=== PATIENT | female | born 1975 | race Caucasian/White ===

== ENCOUNTER → 2018-03-15 15:06 | Outpatient (CLI) | payer OTHER, SELFPAY ==
[2018-03-15 15:58] LABS: Hemoglobin 10.8 g/dl (12.0-15.0); Mean Corp Hgb Conc 33.8 g/gl (32-36); Mean Corpuscular Hgb 31.3 pg (27.0-32.0); Mean Corpuscular Volume 92.8 fL (81-99); Mean Platelet Vol. 10.3 fl (6.2-12.0); Platelet Count 268 K/mm3 (150-450); RBC Distribution Width CV 12.6 % (11.6-14.6); RBC Distribution Width SD 41.4 fl (35.1-43.9); Red Blood Count 3.45 M/mm3 (4.2-5.4); White Blood Count 8.7 K/mm3 (4.4-11.0)
[2018-03-15 15:59] LABS: Scan Indicated on CBC? Y/N NO
[2018-03-15 19:33] LABS: Thyroid Stim Hormone (TSH) 0.82 uIU/mL (0.358-3.74)
[2018-03-15 21:02] LABS: hCG Titer Quant., Serum < 1 mIU/mL (<9 non-preg)
== END ==
PROVIDERS: Visit Provider Obstetrics & Gynecology
DX: N92.0 Excessive and frequent menstruation with regular cycle (principal)
CPT/HCPCS: 84443; 84702; 85027

== ENCOUNTER 2018-03-17 06:00 | Day surgery (SDC) | payer OTHER, SELFPAY ==
[2018-03-17] VITALS (8 sets, daily range): BP systolic 97–122; BP diastolic 59–86; PULSE 67–91; RESP 16–18; TEMP 36.6–36.9; O2SAT 95–100; BMI 21.3
[2018-03-17 07:16] LABS: Pregnancy, Serum, hCG Quali. NEGATIVE Negative (0-9 Nonpreg)
--- NOTE | 2018-03-17 07:30 | EMB_PTH ---
PATIENT: RICHARD LAM [place] [facility] [id number] AGE/SX: 42/F ROOM: RE03/17/[address]: Dr. Jen Mcdermott MD : 1975 BED: DIS: 03/17/2018 SPEC #: [id number] RECD: 03/17/18 12:42 STATUS: VONNIE KENNEDY #: [id number] JULIA: 03/17/18 07:[address]: Jen Mcdermott DEPT: SURGICAL PATHOLOGY RECD BY: Vaughn Schuster ENTERED: 03/17/18 13:14 SP TYPE: ENDOM BX/C PAULO DR: Dr. Latisha Rhodes MD Tissues: Endometrium, NOS Procedures: Surgery Specimen Level IV HEADER OPERATION: Hysteroscopy, dilation and curettage PRE-OP DIAGNOSIS: Menorrhagia TISSUE SUBMITTED: Endometrial curettings MICROSCOPIC DIAGNOSIS Endometrial curettings: Weakly proliferative endometrium. Fragments of myometrium. Fragments of benign endocervical mucosa and numerous blood clots. LA:sam 03/20/18 MICROSCOPIC DESCRIPTION Slides are reviewed. GROSS DESCRIPTION Received in fixative is one container labeled with the patient's name and designated endometrial curettings. The specimen consists of multiple fragments of hemorrhagic soft tissue mixed with blood clot that in aggregate measure 5 x 3 x 0.6 cm. The entire specimen is submitted in four cassettes. / LA:sam 03/17/18 TC:5 CPT: 33026
--- NOTE | 2018-03-17 07:52 | PCM.DC.D&C ---
Discharge Diet: No Restrictions Discharge Activity: Return to Normal Activity, May Shower, May Take a Tub Bath - in 2 weeks. Return to work on:: 03/24/18 May shower in (days): 0 - TODAY May resume sexual activity in: 2 weeks Weight Bearing Status: Full weight bearing Lifting Restrictions: 5 Call your doctor if you observe: Fever of 101 or Higher, Inability to urinate, Inability to have a bowel movement, Using more than one pad per hour Allergies/Adverse Reactions: Allergies No Known Allergies Allergy (Verified 03/16/18 15:38) Medications to take at Discharge Drospir/Eth Estra/Levomefol Ca [Beyaz 28 Tablet] 1 each PO DAILY 07/15/14 Norgestimate-Ethinyl Estradiol [Ortho-Cyclen] 1 each PO DAILY 30 Days tablet 03/17/18 Oxycodone HCl/Acetaminophen [Percocet 5/325] 1 - 2 tablet PO Q4H PRN PRN 7 Days #20 tablet 03/17/18 The following prescriptions were given: Oxycodone HCl/Acetaminophen [Percocet 5/325] 1 - 2 tablet PO Q4H PRN PRN 7 Days #20 tablet PRN Reason: Pain Norgestimate-Ethinyl Estradiol [Ortho-Cyclen] 1 each PO DAILY 30 Days tablet Primary Care Physician: Latisha Rhodes MD [Primary Care Provider] - Test Results: Test results from this visit will be discussed in further detail at your follow-up appointment, if applicable. Please Follow Up With: Jen Mcdermott MD When: follow up in office March 21. Call for appointment time
--- NOTE | 2018-03-17 08:08 | PCM.OPRPT ---
Problem List (1) Menorrhagia Status: Acute (2) Metrorrhagia Status: Acute (3) Endometrial mass Status: Acute (4) Anemia Status: Acute Report of Operation Date of Procedure: 03/17/18 Pre-Operative Diagnosis: Menorrhagia, metrorrhagia, endometrial mass, anemia Post-Operative Diagnosis: Same plus suspected endometrial fibroid Surgery/Procedure Performed:: D and C with diagnostic hysteroscopy Description of Surgical Findings:: Uterus was noted to be in an anterior position and was sounded to approximately. Cervical eyes was somewhat dilated. Hysteroscope revealed what appeared to be a posterior also appears to be contiguous fibroid on ultrasound yesterday. Uterus is fully mobile and well supported. There is no prolapse. Right. Bilateral adnexa are benign macaroni press operator: Marina Hartman Type of Anesthesia:: Local, MAC Anesthesiologist: Ha Ruano Special Medications: 1% lidocaine, 10 cc to the cervix. Specimen's removed: Endometrium Drains: None Estimated Blood Loss (mL): Minimal Fluids Replaced: Lactated Ringer Description of Procedure: Patient presented to the surgical suite in an n.p.o. status since midnight the night before surgery. Patient was placed on the operating table and underwent a MAC anesthetic. Once MAC anesthetic was noted to be adequate she was placed in the dorsal lithotomy position via the Reg stirrups she was then prepped and draped in the normal sterile fashion. Initial room timeout occurred followed by a second timeout just prior to starting the procedure. A weighted speculum was taped placed to the vagina the bladder had been emptied by nursing staff during the preparation process. Anterior lip of the cervix was grasped and elevated and uterus was sounded to approximately 10-11 cm in an anterior position. The 1% lidocaine was then placed to the 4 quadrants of the cervix which the patient tolerated well. The cervical eyes was already dilated and a 3 mm hysteroscope was placed into the endometrial cavity with a large amount of clotted tissue noted. Forceps were then used to remove this clotted tissue along with sharp curettage of the entire endometrial cavity. The entire posterior surface of the uterus appears to be involved with the fibroid. Hysteroscopic investigation could not delineate precise stock and it is suspected that this endometrial fibroid is either connected to or is a part of the 6 cm fibroid noted on the exterior of the uterus in the posterior position. After removal of all available tissue and that being sent away for pathological evaluation, all instruments were removed from the vagina. Hemostasis was noted. The instrument and sponge counts are correct ?2. The patient is awake and in stable condition. Patient will be taken to recovery room with discharge to the home setting. Grafts/Implants Used: None - Complications None - Admit VTE Documentation VTE Present on Admission: No VTE Mechan Device Prophylaxis: SCD's VTE Pharm Prophylaxis ordered?: No Reason prophylaxis not ordered:: Procedure Not Indicated
[2018-03-17] MEDS: MedroxyPROGESTERone 150 MG/ML Syringe IM (08:41)
== END 2018-03-17 09:54 | disposition home or self-care (01) ==
LOC: SDC 06:00 → AC 06:01
PROVIDERS: Anesthesiology; Family Provider Family Medicine; PCP Family Medicine; Visit Provider Obstetrics & Gynecology
PROC: 0UDB8ZZ Extraction of Endometrium, Via Natural or Artificial Opening Endoscopic (ICD-10-PCS; CPT 58558; principal; 2018-03-17 07:20)
DX: N92.0 Excessive and frequent menstruation with regular cycle (principal); N92.1 Excessive and frequent menstruation with irregular cycle; N85.8 Other specified noninflammatory disorders of uterus; D64.9 Anemia, unspecified; K21.9 Gastro-esophageal reflux disease without esophagitis; Z85.828 Personal history of other malignant neoplasm of skin
CPT/HCPCS: 58558; 84703; 86850; 86900; 88305; J7120; J2405

== ENCOUNTER 2018-03-25 14:37 | Emergency (ER) | payer OTHER, SELFPAY ==
[2018-03-25 14:38] VITALS: BP 141/81; PULSE 97; RESP 16; TEMP 37; O2SAT 97; BMI 21.7
--- NOTE | 2018-03-25 15:06 | ED.VISSUMM ---
- ER Visit Summary Date of Service: 03/25/18 Chief Complaint: [] Bilateral lower extremity leg cramps left greater than right for a few days History of Present Illness: The patient is a 43 F [] recently had heavy vaginal bleeding, found to have fibroid, underwent D&C on the , she has had intermittent lower extremity leg cramps left greater than right for a few days. 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 She has had no fever no cough her vaginal bleeding has resolved she has no abdominal pain she is scheduled for hysterectomy later in the month she seen by Dr. Jen Mcdermott Patient has no history of trauma to her lower extremities or anybody area, and again no history of vascular disease DVT swelling or trauma she points to the most fleshy part of the left calf as the area where the cramps occur and they occasionally occur in similar location right calf Physical Examination: [] Head neck chest unremarkable abdomen soft , her lower extremities are unremarkable she has normal muscle strength normal movement of all major joints, there is no edema normal pulsation normal cap refill skin color is normal there is no pain to palpation of the calves or the medial thighs and no signs of DVT infection trauma Test Results: [] Emergency Department Course and Treatment: [] Patient expresses concern for DVT she has no history of risk factor she is no immobility did have the procedure as above the duplex techs are no longer available at the hospital, she understands the above we are obtaining screening labs to check for any electrolyte abnormalities that might be contributing to the above, and she understands and agrees if the screening labs are unremarkable she will undergo duplex scanning tomorrow through the outpatient mechanism Treatment Plan: [] The labs are all generally unremarkable see those reports she will obtain a duplex scanning tomorrow as discussed above Disposition: [] Home stable Impression: [] Bilateral lower extremity cramps intermittent, anemia, history of hysterectomy with vaginal bleeding This note was generated with [employer] software. It may contain incorrect words, spelling, and punctuation that were not noted in review of the chart prior to signing ED Disposition - Plan for ED Patient: Chief Complaint: Lower Extremity Injury Referrals: Latisha Rhodes MD [Primary Care Provider] -
[2018-03-25 15:29] LABS: Absolute Lymphocyte Count 2.46 X10^3/ul (0.83-4.51); Absolute Neutrophil Count 6.3 X10^3/uL (2.0-7.7); Basophil# 0.03 X10^3/uL; Basophil% 0.3 % (0-1); Eosinophil# 0.19 X10^3/uL; Hematocrit 30.9 % (37-47); Hemoglobin 10.1 g/dl (12.0-15.0); Lymphocyte # 2.46 X10^3/ul (4.0); Lymphocyte % 25.5 % (19-41); Mean Corp Hgb Conc 32.7 g/gl (32-36); Mean Corpuscular Hgb 29.8 pg (27.0-32.0); Mean Corpuscular Volume 91.2 fL (81-99); Monocyte# 0.66 X10^3/uL; Monocyte% 6.9 % (0-10); Neutrophil # 6.28 X10^3/uL (2.7-7.7); Neutrophil % 65.2 % (47-70); Platelet Count 336 K/mm3 (150-450); RBC Distribution Width CV 13.2 % (11.6-14.6); RBC Distribution Width SD 43.7 fl (35.1-43.9); Red Blood Count 3.39 M/mm3 (4.2-5.4); White Blood Count 9.6 K/mm3 (4.4-11.0)
[2018-03-25 15:39] LABS: Anion Gap 6 (5-15); BUN 9 mg/dL (7-18); BUN/Creat Ratio 10.3 RATIO (10-20); Calcium,Total 8.5 mg/dL (8.5-10.1); Chloride 109 mmol/L (98-107); Creatinine, Serum 0.87 mg/dL (0.55-1.02); EST Glomerular Filtration Rate 76 mL/min (>60); Est Glom Filt Rate - Afr Amer 92 mL/min (>60); Estimated Creatinine Clearance 82.75 ml/min; Glucose 95 mg/dL (74-106); Magnesium 2.1 mg/dL (1.6-2.6); POSITIVE COUNT NO; POSITIVE DIFFERENTIAL NO; POSITIVE MORPHOLOGY NO; Potassium 3.8 mmol/L (3.5-5.1); Sodium Level 139 mmol/L (136-145)
--- NOTE | 2018-03-25 15:45 | ED.DEP ---
ED Disposition - Plan for ED Patient: Chief Complaint: Lower Extremity Injury Instructions: ED Muscle Pain Leg Cramps Prescriptions: Hydrocodone Bitart/Apap 5-325 [[employer] 5MG-325MG] 1 tab PO Q4H PRN PRN 2 Days #7 tab PRN Reason: Pain Referrals: Latisha Rhodes MD [Primary Care Provider] -
--- NOTE | 2018-03-26 10:45 | VDLE_ITS ---
Reason For Study: PAIN RIGHT LEFT GSV is normal. GSV is normal. CFV is compressible, spontaneous, phasic, CFV is compressible, spontaneous, phasic, competent and demonstrates normal competent, and demonstrates normal augmentation. augmentation. FV is compressible, spontaneous, phasic, FV is compressible, spontaneous, phasic, competent and demonstrates normal competent and demonstrates normal augmentation. augmentation. POP V is compressible, spontaneous, phasic, POP V is compressible, spontaneous, phasic, competent and demonstrates normal competent and demonstrates normal augmentation. augmentation. T/P Trunk is compressible. T/P Trunk is compressible. PTV is compressible. LT PerV is compressible. RT PerV is compressible. Left PTV is dilated and noncompressible at Procedure the ankle. The remainder of the PTV is Exam performed in department. compressible . A preliminary report was called and/or faxed to Dr Beltre was paged and spoke to pt. Interpretation Summary Acute deep vein thrombosis is noted in the left posterior tibial vein at the level of the ankle. The remainder of the left lower extremity deep venous system is patent and compressible. Deep veins of the right lower extremity are patent and compressible segmentally. There is no evidence of right lower extremity deep vein thrombosis. Valvular competence appears intact within the proximal deep venous systems bilaterally. The greater saphenous veins appear bilaterally patent and compressible segmentally. Ordering Physician: Manuela Kahn Referring Physician: DANTE YORK Performed By: Emmanuelle Marino, OMAR, RVT
== END 2018-03-25 16:10 | disposition home or self-care (01) ==
PROVIDERS: Emergency Provider Emergency Medicine; Family Provider Family Medicine; PCP Family Medicine
DX: R25.2 Cramp and spasm (principal); D64.9 Anemia, unspecified; N93.9 Abnormal uterine and vaginal bleeding, unspecified; Z90.710 Acquired absence of both cervix and uterus
CPT/HCPCS: 36415; 80048; 83735; 85025; 99282

== ENCOUNTER → 2018-03-26 08:00 | Outpatient (CLI) | payer OTHER, SELFPAY | PROVIDERS: Family Provider Family Medicine; PCP Family Medicine; Visit Provider Emergency Medicine | DX: I82.442 Acute embolism and thrombosis of left tibial vein (principal) | CPT/HCPCS: 93970 ==

== ENCOUNTER → 2018-03-27 14:27 | Outpatient (CLI) | payer OTHER, SELFPAY ==
[2018-03-27 15:49] LABS: Homocysteine 5.9 umol/L (3.2-10.7)
[2018-04-05 12:05] LABS: Antithrombin 3 Function 114 % (75-135)
== END ==
PROVIDERS: Family Provider Family Medicine; PCP Family Medicine; Visit Provider Obstetrics & Gynecology
DX: I82.402 Acute embolism and thrombosis of unspecified deep veins of left lower extremity (principal)
CPT/HCPCS: 81240; 81241; 81291; 83090; 85300

== ENCOUNTER → 2018-04-03 16:34 | Outpatient (CLI) | payer OTHER, SELFPAY ==
[2018-04-03 17:37] LABS: Absolute Lymphocyte Count 3.51 X10^3/ul (0.83-4.51); Absolute Neutrophil Count 4.1 X10^3/uL (2.0-7.7); Basophil# 0.02 X10^3/uL; Basophil% 0.2 % (0-1); Eosinophil# 0.16 X10^3/uL; Eosinophils% 1.9 % (0-5); Hematocrit 32.6 % (37-47); Hemoglobin 10.6 g/dl (12.0-15.0); Lymphocyte # 3.51 X10^3/ul (4.0); Lymphocyte % 41.9 % (19-41); Mean Corp Hgb Conc 32.5 g/gl (32-36); Mean Corpuscular Hgb 29.8 pg (27.0-32.0); Mean Corpuscular Volume 91.6 fL (81-99); Mean Platelet Vol. 9.1 fl (6.2-12.0); Monocyte# 0.58 X10^3/uL; Monocyte% 6.9 % (0-10); Neutrophil # 4.09 X10^3/uL (2.7-7.7); Platelet Count 410 K/mm3 (150-450); RBC Distribution Width CV 13.3 % (11.6-14.6); RBC Distribution Width SD 44.4 fl (35.1-43.9); Red Blood Count 3.56 M/mm3 (4.2-5.4); White Blood Count 8.4 K/mm3 (4.4-11.0)
[2018-04-03 17:44] LABS: POSITIVE COUNT NO; POSITIVE DIFFERENTIAL NO; POSITIVE MORPHOLOGY NO
== END ==
PROVIDERS: Family Provider Family Medicine; PCP Family Medicine; Visit Provider Family Medicine
DX: I82.409 Acute embolism and thrombosis of unspecified deep veins of unspecified lower extremity (principal)
CPT/HCPCS: 36415; 85025

== ENCOUNTER → 2018-04-13 13:08 | Outpatient (CLI) | payer OTHER, SELFPAY ==
[2018-04-13 16:17] LABS: Hematocrit 33.5 % (37-47); Hemoglobin 10.8 g/dl (12.0-15.0); Mean Corp Hgb Conc 32.2 g/gl (32-36); Mean Corpuscular Hgb 29.3 pg (27.0-32.0); Mean Platelet Vol. 9.8 fl (6.2-12.0); Platelet Count 356 K/mm3 (150-450); RBC Distribution Width CV 12.7 % (11.6-14.6); RBC Distribution Width SD 41.3 fl (35.1-43.9); Red Blood Count 3.68 M/mm3 (4.2-5.4); White Blood Count 7.8 K/mm3 (4.4-11.0)
[2018-04-13 16:21] LABS: Scan Indicated on CBC? Y/N NO
== END ==
PROVIDERS: Visit Provider Obstetrics & Gynecology
DX: D64.9 Anemia, unspecified (principal)
CPT/HCPCS: 36415; 85027

== ENCOUNTER → 2018-04-27 10:52 | Outpatient (CLI) | payer OTHER, SELFPAY | PROVIDERS: Family Provider Family Medicine; PCP Family Medicine; Visit Provider Family Medicine | DX: I82.402 Acute embolism and thrombosis of unspecified deep veins of left lower extremity (principal) | CPT/HCPCS: 93971 ==

== ENCOUNTER 2018-05-29 11:19 | Inpatient (IN) | payer OTHER, SELFPAY ==
[2018-05-29] VITALS (16 sets, daily range): BP systolic 90–114; BP diastolic 47–70; PULSE 80–140; RESP 12–24; TEMP 36.1–37.5; O2SAT 97–100; BMI 22.7; BMI 24.2
--- NOTE | 2018-05-29 11:39 | EKG12_ITS ---
Test Reason : DIZZY Blood Pressure : / mmHG Vent. Rate : 070 BPM Atrial Rate : 070 BPM P-R Int : 140 ms QRS Dur : 078 ms QT Int : 396 ms P-R-T Axes : 065 076 035 degrees QTc Int : 427 ms Normal sinus rhythm with sinus arrhythmia Nonspecific T wave abnormality Confirmed by SHAHID ORTEGA, DEBI ([id number]), video tape editor ANNA BOX ([id number]) on 06/01/2018 1:46:13 PM Referred By: Yady Beltre Confirmed By:DEBI KEY MD
[2018-05-29] MEDS: 0.9% Normal Saline 1,000 ML 1000 ML IV (11:43)
[2018-05-29 12:01] LABS: Absolute Lymphocyte Count 2.71 X10^3/ul (0.83-4.51); Absolute Neutrophil Count 4.1 X10^3/uL (2.0-7.7); Basophil# 0.02 X10^3/uL; Basophil% 0.3 % (0-1); Eosinophil# 0.02 X10^3/uL; Eosinophils% 0.3 % (0-5); Hematocrit 24.4 % (37-47); Lymphocyte # 2.71 X10^3/ul (4.0); Lymphocyte % 36.9 % (19-41); Mean Corp Hgb Conc 32.8 g/gl (32-36); Mean Corpuscular Hgb 29.2 pg (27.0-32.0); Mean Corpuscular Volume 89.1 fL (81-99); Mean Platelet Vol. 9.2 fl (6.2-12.0); Monocyte# 0.52 X10^3/uL; Monocyte% 7.1 % (0-10); Neutrophil # 4.08 X10^3/uL (2.7-7.7); Neutrophil % 55.4 % (47-70); Platelet Count 263 K/mm3 (150-450); RBC Distribution Width CV 14.4 % (11.6-14.6); RBC Distribution Width SD 47.1 fl (35.1-43.9); Red Blood Count 2.74 M/mm3 (4.2-5.4); White Blood Count 7.4 K/mm3 (4.4-11.0)
[2018-05-29 12:03] LABS: POSITIVE COUNT NO; POSITIVE DIFFERENTIAL NO; POSITIVE MORPHOLOGY NO
[2018-05-29 12:08] LABS: International Normalized Ratio 1.2; Prothrombin Time (Protime)PT. 15.2 SECONDS (11.7-14.9)
[2018-05-29 12:09] LABS: Partial Thromboplast Time 27.2 Seconds (24.1-36.2)
[2018-05-29 12:15] LABS: Anion Gap 8 (5-15); BUN 10 mg/dL (7-18); BUN/Creat Ratio 12.1 RATIO (10-20); Chloride 105 mmol/L (98-107); Creatinine, Serum 0.82 mg/dL (0.55-1.02); EST Glomerular Filtration Rate 81 mL/min (>60); Est Glom Filt Rate - Afr Amer 98 mL/min (>60); Glucose 138 mg/dL (74-106); Potassium 3.6 mmol/L (3.5-5.1); Sodium Level 136 mmol/L (136-145)
[2018-05-29] MEDS: 0.9% Normal Saline 1,000 ML 150 ML IV (12:54)
--- NOTE | 2018-05-29 14:05 | ED.VISSUMM ---
- ER Visit Summary Date of Service: 05/29/18 Chief Complaint: Vaginal bleeding History of Present Illness: The patient is a 43 F with a history of menorrhagia and endometrial mass/large fibroid. Patient had a D&C in late February. She had heavy bleeding for 12 hours in early April. She then started heavy bleeding intermittently again over the past 4 days. She reports episodes of lightheadedness. Patient had been scheduled for a hysterectomy after she had a D&C, however developed a DVT in her right lower leg and was started on Xarelto. Hysterectomy is currently on hold secondary to this. Physical Examination: Blood pressure is 110/70, temperature 97, heart rate 140, respiratory rate 24, pulse ox 100% on room air. Patient is lying supine in the bed. She appears pale. Heart is regular rate and rhythm with a rate of 98 at the time of my exam. Lung sounds are clear. Abdomen is soft with no focal tenderness. Test Results: EKG is sinus at 70 with no acute ischemia. CBC was a hemoglobin of 8. In late March her hemoglobin was 11.3. Chemistry studies unremarkable. INR is 1.2. Emergency Department Course and Treatment: Patient is given IV fluids. Heart rate is in the 80s when she is lying supine. We have not gotten her up. Systolic blood pressure is holding between 105 and 110. I spoke with Dr. Erika Yoo, on-call for Dr. Mcdermott. Patient will be admitted and the 2 units of packed RBCs that are currently held will be transfused. Dr. Erika Yoo will see the patient on the floor. Treatment Plan: [] Disposition: Admit Impression: 1. Menorrhagia 2. Anemia This note was generated with [employer] dictation software. It may contain incorrect words, spelling, and punctuation that were not noted in review of the chart prior to signing ED Disposition - Plan for ED Patient: Chief Complaint: Vag Bleeding Referrals: Latisha Rhodes MD [Primary Care Provider] -
--- NOTE | 2018-05-29 20:12 | HP.PCM_ITS ---
Problem List (1) Menometrorrhagia Status: Chronic (2) Anemia Status: Acute Qualifiers: Other causes of anemia: acute posthemorrhagic Comment: acute on chronic History of Present Illness Date of Admission: 05/29/18 Chief Complaint: vaginal bleeding The patient is a 43 year old F 2 para 2 LMP unknown who presented to the ER with heavy vaginal bleeding. Patient has known history of uterine fibroids with associated iron deficiency anemia related to menometrorrhagia since February 2018. She is followed by Dr. Jen Mcdermott locally, but was awaiting a second opinion at [facility] to determine optimal mode of hysterectomy. The patient had a hysteroscopy, dilation and curettage on 03/17/18 with benign endometrial pathology. She stopped her combined hormonal contraceptive pill on the day of surgery and received a single dose of IM DepoProvera that same day. She was subsequently diagnosed with a lower extremity DVT and started on Xarelto. She is followed by Dr. Landis, Hematology. She has some short-term improvement of bleeding and started iron infusions per Hematology. Bleeding recurred the last week of April. Bleeding had been light and intermittent until this past weekend. On Tuesday, 4 days ago, she had 12 hours of heavy bleeding, again followed by similar symptoms on Tuesday and again on Tuesday. Bleeding today was persistent thus she did not take today's dose of Xarelto and went to the ER. Past Medical History Past Medical History (Chronic Problems): Chronic Problems (Last Updated 05/29/18 @ 20:14 by Yady Beltre MD) DVT, lower extremity, distal, acute (Chronic) Iron deficiency anemia (Chronic) Menometrorrhagia (Chronic) Medical History: Medical History (Last Updated 05/29/18 @ 20:14 by Yady Beltre MD) Iron deficiency anemia due to chronic blood loss D50.0 D AND C WITH DIAGNOSTIC HYSTERSCOPY DVT (deep venous thrombosis) I82.409 Allergies No Known Allergies Allergy (Verified 05/29/18 11:21) Home Medications: Ambulatory Orders Medication Instructions Recorded Multivitamin [Multiple Vitamins] 1 each PO DAILY 04/26/18 MedroxyPROGESTERone [Depo-Provera] 150 mg IM .[id number] 05/29/18 Enoxaparin [Lovenox] 70 mg SC Q12@0600,1800 #14 syringe 05/30/18 Medroxyprogesterone Acetate 10 mg PO TID #60 tablet 05/30/18 [Provera] Warfarin [Coumadin] 5 mg PO DAILY@1700 #30 tablet 05/30/18 Surgical History: Surgical History (Last Reviewed 04/19/18 @ 12:01 by Darlene Murphy) History of hernia repair Z98.890, Z87.19 [employer] History: uterine fibroids Lives: Spouse/ Significant Other Smoking Status: Never smoker Tobacco Use: Non-smoker Alcohol: None Drugs: None - *Family History Maternal Family History: Family History (Last Updated 04/19/18 @ 11:59 by Darlene Murphy) Other No pertinent family history History Items: - - Maternal family history of heavy mentrual cycles requiring PRBC administration and eventual hysterectomy. Paternal Family History: Family History (Last Updated 04/19/18 @ 11:59 by Darlene Murphy) Other No pertinent family history History Items: No pertinent history Review of Systems Constitutional: Reports: Fatigue. Denies: Anorexia, Chills, Fever, Weakness Eyes: Denies: Blurred vision Cardiovascular: Reports: Light Headedness. Denies: Chest Pain, Chest Pressure, Edema, Syncope Respiratory: Denies: Shortness of Breath Gastrointestinal: Reports: - - Lower abdominal cramping. Denies: Nausea, Vomiting Gynecological: Reports: Excessively long or heavy periods Hematologic/ Lymphatic: Reports: Anemia, Hx of blood clot VTE Information - Inpt Only VTE Present on Admission: No VTE Mechan Device Prophylaxis: Knee High RUSSELL Hose VTE Pharm Prophylaxis ordered?: No Subjective: See HPI Objective: AVSS - Physical Exam General: Alert, Oriented x3, Cooperative, No apparent distress HEENT: Atraumatic, Normocephalic Lungs: Clear to auscultation, Normal air movement Cardiovascular: Regular rate, Regular Rhythm, Normal S1, Normal S2 Abdomen: Bowel Sounds Present, Soft, Non Tender, Non-Distended Extremities: No edema, No Calf Tenderness Neurological: Neuro grossly intact Psych/Mental Status: Normal Affect, Appropriate, Alert and oriented to time, place, person, mood and affect Comment: Speculum exam - 160cc of blood and clot removed, no active bleed Vital Signs Temp Pulse Resp BP Pulse Ox 98.6 F 80 16 95/65 100 05/29/18 19:57 05/29/18 19:57 05/29/18 19:57 05/29/18 19:57 05/29/18 19:57 Oxygen Delivery Method Room Air Weight: 70.08 kg Body Mass Index (BMI) 24.2 Intake and Output for Last 24 Hours 05/27/18 05/28/18 05/29/18 23:59 23:59 23:59 Intake Total 1435 / 1435 Balance 1435 / 1435 Laboratory Tests Past 24 Hrs 05/29/18 05/29/18 05/29/18 11:45 11:45 11:45 WBC 7.4 RBC 2.74 L Hgb 8.0 L Hct 24.4 L MCV 89.1 MCH 29.2 MCHC 32.8 RDW 14.4 RDW Differential 47.1 H Plt Count 263 MPV 9.2 Immature Gran % (Auto) 0.000 Neut % (Auto) 55.4 Lymph % (Auto) 36.9 [place]born % (Auto) 7.1 Eos % (Auto) 0.3 Baso % (Auto) 0.3 Absolute Neuts (auto) 4.1 Absolute Lymphs (auto) 2.71 Total Counted Not Reportable PT 15.2 H INR 1.2 APTT 27.2 Sodium 136 Potassium 3.6 Chloride 105 Carbon Dioxide 23.0 Anion Gap 8 BUN 10 Creatinine 0.82 Estim Creat Clear Calc 87.80 Est GFR (MDRD) Af Amer 98 Est GFR (MDRD) Non-Af 81 BUN/Creatinine Ratio 12.1 Glucose 138 H Calcium 8.0 L Blood Type Antibody Screen Crossmatch 05/29/18 11:45 WBC RBC Hgb Hct MCV MCH MCHC RDW RDW Differential Plt Count MPV Immature Gran % (Auto) Neut % (Auto) Lymph % (Auto) Sanborn % (Auto) Eos % (Auto) Baso % (Auto) Absolute Neuts (auto) Absolute Lymphs (auto) Total Counted PT INR APTT Sodium Potassium Chloride Carbon Dioxide Anion Gap BUN Creatinine Estim Creat Clear Calc Est GFR (MDRD) Af Amer Est GFR (MDRD) Non-Af BUN/Creatinine Ratio Glucose Calcium Blood Type A POSITIVE Antibody Screen NEGATIVE Crossmatch See Detail Assessment/Plan All Active Problems (Last Updated 05/29/18 @ 20:14 by Yady Beltre MD) Menorrhagia (Acute) Metrorrhagia (Acute) Endometrial mass (Acute) Anemia (Acute) 43yo with menometrorrhagia and acute on chronic blood loss anemia due to symptomatic uterine fibroid. -Discussed with patient further need for acute management to slow bleeding in interim. NOT A CANDIDATE FOR ESTROGEN. Patient expressed concern about DepoProvera as she had started that shortly before DVT diagnosis, however, I reviewed with her the best evidence that such a progestin is safer than estrogen with regard to VTE risk and absolute risk likely minimal. In face of bleeding however benefits far outweigh risks at this time. No indication for hysterectomy at this time however may need to consider this if bleeding worsens. I reviewed with patient goal to optimize and then proceed with scheduled hysterectomy as emergency hysterectomy more often associated with complications. Patient reports understanding. Following discussion, planned to Aygestin therapy, however, Aygestin unavailable. I informed the patient of this and advised oral Provera with review of potential side effects and patient agreeable. At this point in time Xarelto likely maintains some activity. Will hold on additional pharmacologic anticoagulation as that may worsen presentation. TEDs ordered. Observe bleeding overnight and if significantly improved will consider pharmacologic DVT anticoagulation in morning. Si/sx worsening anemia reviewed. Continue blood transfusion 2U PRBC as planned. -Reviewed with patient long-term goals. I recommend medical optimization at this time and proceed with abdominal hysterectomy as time course to obtain a second opinion and surgery may increase risk for interim morbidity. Discussed risks of abdominal hysterectomy. Given h/o ventral hernia repair with mesh patient suboptimal candidate for robotic surgery at [facility]. May consider Lupron bridge to vaginal hysterectomy IF bleeding can be managed appropriately however again with lengthened time course increased risk for interval morbidity and I cannot guarantee the degree of fibroid shrinkage, in which case, abdominal hysterectomy may still be necessary. Patient reports understanding. Considering options. -Maintain CLD -Observe closely -Patient and given opportunity to ask questions and questions answered to their satisfaction. Code Visit Office Visits / Consults: [id number] OV L4 New
--- NOTE | 2018-05-29 21:16 | NURSING ---
Pt. soaked through 1 pad since 1900 and passed blood while urinating and a golf ball size clot. Will continue to monitor
[2018-05-29] MEDS: Acetaminophen 325 MG Tablet 650 MG PO (21:29)
[2018-05-30] VITALS (8 sets, daily range): BP systolic 100–136; BP diastolic 59–79; PULSE 83–94; RESP 14–18; TEMP 36.8–37.2; O2SAT 98–100
[2018-05-30 06:11] LABS: Absolute Lymphocyte Count 3.83 X10^3/ul (0.83-4.51); Absolute Neutrophil Count 5.7 X10^3/uL (2.0-7.7); Basophil# 0.02 X10^3/uL; Basophil% 0.2 % (0-1); Eosinophil# 0.07 X10^3/uL; Eosinophils% 0.7 % (0-5); Hematocrit 21.3 % (37-47); Hemoglobin 7.1 g/dl (12.0-15.0); Lymphocyte # 3.83 X10^3/ul (4.0); Lymphocyte % 36.2 % (19-41); Mean Corp Hgb Conc 33.3 g/gl (32-36); Mean Corpuscular Hgb 29.3 pg (27.0-32.0); Mean Platelet Vol. 9.9 fl (6.2-12.0); Monocyte# 0.88 X10^3/uL; Monocyte% 8.3 % (0-10); Neutrophil # 5.74 X10^3/uL (2.7-7.7); Neutrophil % 54.2 % (47-70); Platelet Count 176 K/mm3 (150-450); RBC Distribution Width CV 14.4 % (11.6-14.6); RBC Distribution Width SD 43.8 fl (35.1-43.9); Red Blood Count 2.42 M/mm3 (4.2-5.4); White Blood Count 10.6 K/mm3 (4.4-11.0)
[2018-05-30 06:29] LABS: Anion Gap 8 (5-15); BUN 8 mg/dL (7-18); BUN/Creat Ratio 13.2 RATIO (10-20); Calcium,Total 7.4 mg/dL (8.5-10.1); Chloride 110 mmol/L (98-107); Creatinine, Serum 0.61 mg/dL (0.55-1.02); EST Glomerular Filtration Rate 115 mL/min (>60); Est Glom Filt Rate - Afr Amer 140 mL/min (>60); Estimated Creatinine Clearance 118.02 ml/min; Glucose 101 mg/dL (74-106); Potassium 3.8 mmol/L (3.5-5.1); Sodium Level 140 mmol/L (136-145)
[2018-05-30 06:36] LABS: POSITIVE COUNT NO; POSITIVE DIFFERENTIAL NO; POSITIVE MORPHOLOGY NO
--- NOTE | 2018-05-30 08:42 | PN.OBGYN_ITS ---
Subjective: Relates fatigue. Lightheadedness resolved. No nausea, vomiting, palpitations, sob or chest pain. Her bleeding is minimal. Objective: AVSS - Physical Exam General: Alert, Oriented x3, Cooperative, No apparent distress HEENT: Atraumatic, Normocephalic Lungs: Clear to auscultation, Normal air movement Cardiovascular: Regular rate, Regular Rhythm, Normal S1, Normal S2 Abdomen: Soft, Non Tender, Non-Distended Extremities: No edema, No Calf Tenderness Neurological: Neuro grossly intact Psych/Mental Status: Normal Affect, Appropriate, Alert and oriented to time, place, person, mood and affect Comment: Jessy-pad with scant blood present Vital Signs Temp Pulse Resp BP Pulse Ox 99 F 85 16 104/59 L 100 05/30/18 03:00 05/30/18 03:00 05/30/18 03:00 05/30/18 03:00 05/30/18 03:00 Oxygen Delivery Method Room Air Weight: 70.08 kg Body Mass Index (BMI) 24.2 Intake and Output for Last 24 Hours 05/28/18 05/29/18 05/30/18 23:59 23:59 23:59 Intake Total 1435 / 1435 913 / 913 Balance 1435 / 1435 913 / 913 Laboratory Tests Past 24 Hrs 05/29/18 05/29/18 05/29/18 11:45 11:45 11:45 WBC 7.4 RBC 2.74 L Hgb 8.0 L Hct 24.4 L MCV 89.1 MCH 29.2 MCHC 32.8 RDW 14.4 RDW Differential 47.1 H Plt Count 263 MPV 9.2 Immature Gran % (Auto) 0.000 Neut % (Auto) 55.4 Lymph % (Auto) 36.9 [place] % (Auto) 7.1 Eos % (Auto) 0.3 Baso % (Auto) 0.3 Absolute Neuts (auto) 4.1 Absolute Lymphs (auto) 2.71 Total Counted Not Reportable PT 15.2 H INR 1.2 APTT 27.2 Sodium 136 Potassium 3.6 Chloride 105 Carbon Dioxide 23.0 Anion Gap 8 BUN 10 Creatinine 0.82 Estim Creat Clear Calc 87.80 Est GFR (MDRD) Af Amer 98 Est GFR (MDRD) Non-Af 81 BUN/Creatinine Ratio 12.1 Glucose 138 H Calcium 8.0 L Blood Type Antibody Screen Crossmatch 05/29/18 05/29/18 05/30/18 11:45 11:45 05:50 WBC RBC Hgb Hct MCV MCH MCHC RDW RDW Differential Plt Count MPV Immature Gran % (Auto) Neut % (Auto) Lymph % (Auto) [place] % (Auto) Eos % (Auto) Baso % (Auto) Absolute Neuts (auto) Absolute Lymphs (auto) Total Counted PT INR APTT Sodium 140 Potassium 3.8 Chloride 110 H Carbon Dioxide 22.0 Anion Gap 8 BUN 8 Creatinine 0.61 Estim Creat Clear Calc 118.02 Est GFR (MDRD) Af Amer 140 Est GFR (MDRD) Non-Af 115 BUN/Creatinine Ratio 13.2 Glucose 101 Calcium 7.4 L Blood Type A POSITIVE Antibody Screen NEGATIVE Crossmatch See Detail See Detail 05/30/18 05:50 WBC 10.6 RBC 2.42 L Hgb 7.1 L Hct 21.3 L MCV 88.0 MCH 29.3 MCHC 33.3 RDW 14.4 RDW Differential 43.8 Plt Count 176 MPV 9.9 Immature Gran % (Auto) 0.400 Neut % (Auto) 54.2 Lymph % (Auto) 36.2 [place] % (Auto) 8.3 Eos % (Auto) 0.7 Baso % (Auto) 0.2 Absolute Neuts (auto) 5.7 Absolute Lymphs (auto) 3.83 Total Counted Not Reportable PT INR APTT Sodium Potassium Chloride Carbon Dioxide Anion Gap BUN Creatinine Estim Creat Clear Calc Est GFR (MDRD) Af Amer Est GFR (MDRD) Non-Af BUN/Creatinine Ratio Glucose Calcium Blood Type Antibody Screen Crossmatch Medical Necessity - Tobacco Use Smoking Status: Never smoker Tobacco Use: Non-smoker Assessment/Plan All Active Problems (Last Updated 05/29/18 @ 20:14 by Yady Beltre MD) Menorrhagia (Acute) Metrorrhagia (Acute) Endometrial mass (Acute) Anemia (Acute) 43yo with menometrorrhagia and acute on chronic blood loss anemia due to symptomatic uterine fibroid. -Bleeding resolved with Provera. Will continue high dose Provera with plan for extended taper. -Recommend additional 1U PRBC today. -Will call Dr. Landis to follow up optimal anticoagulation regimen given recent bleeding episodes and inability to reverse Xarelto if emergent surgery indicated. -Advance to regular diet -Calcium gluconate for low ca - likely 2/2 blood transfusion
--- NOTE | 2018-05-30 12:59 | PCM.CONS.GEN ---
Problem List (1) Menorrhagia Status: Acute (2) Metrorrhagia Status: Acute (3) Endometrial mass Status: Acute (4) Anemia Status: Acute Qualifiers: Other causes of anemia: acute posthemorrhagic Comment: acute on chronic (5) DVT, lower extremity, distal, acute Status: Chronic Qualifiers: Laterality: left Qualified Code(s): I82.4Z2 - Acute embolism and thrombosis of unspecified deep veins of left distal lower extremity (6) Iron deficiency anemia Status: Chronic Reason for Consult Date of Consultation: 05/30/18 Reason for Consultation: Medical consultation for DVT History of Present Illness: The patient is a 43 y/o F w/ PMHx: Fe Deficiency Anemia secondary to chronic ongoing blood loss, History of Menometrorrhagia secondary to Fibroids with ongoing assessment since 02/2018 with planned evaluation per [facility] as second opinion to Dr. Mcdermott as had recommended oral combined hormonal contraceptic pill with patient discontinuation of her hormone supplementation prior to day of planned surgical intervention with since arias IM depoprovera; however, had onset lower extremity discomfort with diagnosis of LLE DVT started on xarelto per Hematology. She per report also had evaluation for possible alternate etiology for anemia with bleeding and had negative Hematology work-up. She presented recently to the [facility] on 05/29/18 with noted light, intermittent vaginal bleeding starting ~ 4 days prior which then persisted on day of ED presentation. Dr. Mcdermott contacted Hospitalist service with noted future plans in 3 months following anticoagulation discontinuation for surgical intervention but in the interim preference to have anticoagulant agent that would be more easily reversed if surgery was urgently or emergently needed. Dr. Mcdermott noted that patient bleeding has currently stopped and felt she was appropriate to be restarted on anticoagulation therapy. Discussed patient case with her and decision to start coumadin w/ overlapping lovenox therapy until therapeutic. Past Medical History Past Medical History (Chronic Problems): Chronic Problems (Last Updated 05/29/18 @ 20:14 by Yady Beltre MD) DVT, lower extremity, distal, acute (Chronic) Iron deficiency anemia (Chronic) Menometrorrhagia (Chronic) Medical History: Medical History (Last Updated 05/29/18 @ 20:14 by Yady Beltre MD) Iron deficiency anemia due to chronic blood loss D50.0 D AND C WITH DIAGNOSTIC HYSTERSCOPY DVT (deep venous thrombosis) I82.409 Allergies No Known Allergies Allergy (Verified 05/29/18 11:21) Home Medications: Ambulatory Orders Medication Instructions Recorded Multivitamin [Multiple Vitamins] 1 each PO DAILY 04/26/18 MedroxyPROGESTERone [Depo-Provera] 150 mg IM .[id number] 05/29/18 Enoxaparin [Lovenox] 70 mg SC Q12@0600,1800 #14 syringe 05/30/18 Medroxyprogesterone Acetate 10 mg PO TID #60 tablet 05/30/18 [Provera] Warfarin [Coumadin] 5 mg PO DAILY@1700 #30 tablet 05/30/18 Surgical History: Surgical History (Last Reviewed 04/19/18 @ 12:01 by Darlene Murphy) History of hernia repair Z98.890, Z87.19 Surgical History: - - BL hernia repair w/ mesh. Psychiatric History: No pertinent psych hx [employer] History: uterine fibroids Lives: Spouse/ Significant Other Smoking Status: Never smoker Tobacco Use: Non-smoker Alcohol: Rare Drugs: None - *Family History Maternal Family History: Family History (Last Updated 04/19/18 @ 11:59 by Darlene Murphy) Other No pertinent family history History Items: - - Maternal family history of heavy mentrual cycles requiring PRBC administration and eventual hysterectomy. Paternal Family History: Family History (Last Updated 04/19/18 @ 11:59 by Darlene Murphy) Other No pertinent family history History Items: No pertinent history Review of Systems Constitutional: Reports: Weakness, Fatigue. Denies: Chills, Fever, Weight Change HEENT: Denies: Head Aches, Sinus Congestion, Sinus Drainage Cardiovascular: Denies: Chest Pain, Palpitations Respiratory: Denies: Cough, Shortness of breath at rest, Sputum production Gastrointestinal: Reports: Abdominal Pain. Denies: Nausea, Vomiting Genitourinary: Denies: Dysuria Gynecological: Reports: Vaginal bleeding Musculoskeletal: Denies: Joint Pain, Joint Tenderness Skin: Denies: Rash, Wounds Neurological: Denies: Numbness, Tingling, Focal weakness Psychiatric: Denies: Anxiety, Depression, Homicidal Ideations, Suicidal Ideations Hematologic/ Lymphatic: Reports: Anemia, Easy Bruising, Easy Bleeding Subjective: Patient with no acute complaints at this time. She notes her vaginal bleeding has resolved. No further abdominal cramping. Objective: Physical Examination: General: awake, alert, oriented x 3 and cooperative, seated upright in bed in no apparent distress. Skin: Vary plasencia, unable to note pale palor, turgor, no icterus, cyanosis. HEENT: AT/NC, EOMI, PERRLA, MMM, no carotid bruits or JVD noted. Lungs: CTA bilaterally, moderate effort, mild decrease BL bases, no rales, ronchi or wheezing. Heart: Regular rate and rhythm; no gallop, rub audible. Abdomen: soft, NTTP, ND, normal BS, no HSM. Extremities: no cyanosis, clubbing, or edema. Neurological: patient awake, alert, oriented x 3; cognitive function intact; pupils equally reactive to light and accomodation; cranial nerves II-XII grossly normal, moving all 4 extremities, no focal deficits, strength improving, mildly to moderately globally decreased secondary to acute presentation. Psychiatric: affect appears normal, no acute evidence of depressive or anxiety feelings. - Physical Exam Vital Signs Temp Pulse Resp BP Pulse Ox 98.9 F 91 16 112/65 98 05/30/18 12:25 05/30/18 12:25 05/30/18 12:25 05/30/18 12:25 05/30/18 12:25 Oxygen Delivery Method Room Air Weight: 154 lb 8 oz Body Mass Index (BMI) 24.2 Intake and Output for Last 24 Hours 05/28/18 05/29/18 05/30/18 23:59 23:59 23:59 Intake Total 1435 / 1435 1338 / 1338 Balance 1435 / 1435 1338 / 1338 Laboratory Tests Past 24 Hrs 05/29/18 05/29/18 05/30/18 11:45 11:45 05:50 WBC RBC Hgb Hct MCV MCH MCHC RDW RDW Differential Plt Count MPV Immature Gran % (Auto) Neut % (Auto) Lymph % (Auto) [place] % (Auto) Eos % (Auto) Baso % (Auto) Absolute Neuts (auto) Absolute Lymphs (auto) Total Counted Sodium 140 Potassium 3.8 Chloride 110 H Carbon Dioxide 22.0 Anion Gap 8 BUN 8 Creatinine 0.61 Estim Creat Clear Calc 118.02 Est GFR (MDRD) Af Amer 140 Est GFR (MDRD) Non-Af 115 BUN/Creatinine Ratio 13.2 Glucose 101 Calcium 7.4 L Blood Type A POSITIVE Antibody Screen NEGATIVE Crossmatch See Detail See Detail 05/30/18 05:50 WBC 10.6 RBC 2.42 L Hgb 7.1 L Hct 21.3 L MCV 88.0 MCH 29.3 MCHC 33.3 RDW 14.4 RDW Differential 43.8 Plt Count 176 MPV 9.9 Immature Gran % (Auto) 0.400 Neut % (Auto) 54.2 Lymph % (Auto) 36.2 [place] % (Auto) 8.3 Eos % (Auto) 0.7 Baso % (Auto) 0.2 Absolute Neuts (auto) 5.7 Absolute Lymphs (auto) 3.83 Total Counted Not Reportable Sodium Potassium Chloride Carbon Dioxide Anion Gap BUN Creatinine Estim Creat Clear Calc Est GFR (MDRD) Af Amer Est GFR (MDRD) Non-Af BUN/Creatinine Ratio Glucose Calcium Blood Type Antibody Screen Crossmatch Assessment/Plan All Active Problems (Last Updated 05/29/18 @ 20:14 by Yady Beltre MD) Menorrhagia (Acute) Metrorrhagia (Acute) Endometrial mass (Acute) Anemia (Acute) The patient is a 43 y/o F w/ PMHx: Fe Deficiency Anemia secondary to chronic ongoing blood loss, History of Menometrorrhagia secondary to Fibroids with LLE DVT following hormonal IM injections who represented to the [facility] w/ recurrent vaginal bleed. (1) Acute on Chronic Menometrorrhagia secondary to Fibroids: Admission Hgb 8, decreased to 7.1, 3 u PRBC ordered and being administered. From discussion of case would highly benefit from consideration operative versus IR interventions. Given history may be better option in short-term to consider IR intervention possibilities as preference to avoid hormonal therapy given DVT. Patient understands that if she has recurrent bleeding she may not be candidate to continue anticoagulation and IVCF may need to be considered. (2) Iron Deficiency Anemia, Acute on Chronic, Secondary to #1: Admission Hgb 8, decreased to 7.1, 3 u PRBC ordered and being administered. Will obtain serial HH given intention to start anticoagulation in this setting as discussed with Dr. Mcdermott, repeat CBC in AM additionally, if worsened anemia or recurrent vaginal bleeding would need to discontinue anticoagulation and would need consultation w/ Dr. Anaya for consideration if IVCF appropriate. (3) Prior (Dx March 29, 2018) LLE DVT: As noted, given history, preference per [facility] [employer] to transition off xarelto. Has been treated 2 months currently, needs 1 additional month treatment. Will transition to coumadin w/ lovenox bridge, pending CM/SW assessment for cost, INR trending. If recurrent issues w/ vaginal bleeding would discontinue and would need surgery evaluation. Trending HH as noted given presentation currently to assure no restart vaginal bleeding. Noted intention for repeat hypercoag testing following completion of 3 months anticoagulation per discussion w/ patient per her Primary Clinician. Plan follow-up after completion 1 additional month anticoagulation which was discussed w/ Dr. Landis with plan repeat assessment 2 weeks following stop for hypercoag panel to be obtained. He confirmed that patient may have her hysterectomy within that 2 week time period prior to obtaining the repeat hypercoag panel which was relayed to Dr. Mcdermott. Dr. Landis requested that patient INR trending and coumadin alterations be followed w/ her PCP. (4) DVT Prophylaxis: SCDs, coumadin w/ lovenox overlap until therapeutic, INR trending. Code Visit Office Visits / Consults: [id number] IP Consult L3
[2018-05-30] MEDS: Magnesium Hydroxide 30 ML UDC PO (13:46)
--- NOTE | 2018-05-30 14:56 | PCM.PN.BLA ---
Progress Note Discussion with patient and to review hospital course to this point. Plan to convert the Xarelto to coumadin to best prepare for potential need for unplanned hysterectomy. Patient is comfortable with use of oral Provera to aid leiomyoma stabilization. Patient had previous refusal of depo-provera. Medicine is consulted for medication management of the coumadin conversion. Plan abdominal hysterectomy with large uterus and ventral hernia repair with large piece of mesh. Overnight admission to continue to allow INR following coumadin administration. Ambulates to the bathroom. Tolerating diet well. No pain. Once coumadin stable, plan to discharge to home. Hysterectomy planned early June following 3 mos of anti-coagulation. Appreciate medicine input and care.
[2018-05-30 15:18] LABS: Hematocrit 23.9 % (37-47)
[2018-05-30] MEDS: Enoxaparin 80 MG/0.8 ML Syringe 70 MG SC ×2 (15:31→21:24)
[2018-05-30 18:20] LABS: Hemoglobin 7.6 g/dl (12.0-15.0)
[2018-05-30 22:18] LABS: Hematocrit 21.8 % (37-47); Hemoglobin 7.3 g/dl (12.0-15.0)
[2018-05-31] VITALS (39 sets, daily range): BP systolic 103–121; BP diastolic 57–98; PULSE 74–105; RESP 14–20; TEMP 37–38.1; O2SAT 93–100
--- NOTE | 2018-05-31 | HYST_PTH ---
PATIENT: RICHARD LAM LOC: PCU U#:[id number] AGE/SX: 43/F ROOM: [facility] RE05/29/[address]: Dr. Leatha Leo MD : 1975 BED: 1 DIS: 06/03/2018 SPEC #: [id number] RECD: 05/31/18 13:27 STATUS: VONNIE MARCIA #: [id number] JULIA: 05/31/18 00:[address] RECD BY: Nicoals Chen ENTERED: 05/31/18 13:27 SP TYPE: HYSTERECT OTHR DR: MD Dr. Yasmin Conway MD Tissues: Uterus, NOS Procedures: Surgery Specimen Level V HEADER OPERATION: Total abdominal hysterectomy, bilateral salpingectomy PRE-OP DIAGNOSIS: Acute menorrhagia, acute metrorrhagia, endometrial mass, anemia TISSUE SUBMITTED: Uterus, bilateral fallopian tubes MICROSCOPIC DIAGNOSIS Uterus and bilateral fallopian tubes, total abdominal hysterectomy and bilateral salpingectomy: Cervix - mild chronic inflammation. Endometrium - weakly proliferative endometrium. Myometrium - intramural and subserosal leiomyomas (largest measuring 6.5 cm in greatest dimension. Bilateral fallopian tubes - no pathologic diagnosis. See comment. SJ:sam 06/01/18 COMMENT The largest leiomyoma also shows areas of hyalinization and hemorrhage. MICROSCOPIC DESCRIPTION Slides are reviewed. GROSS DESCRIPTION Received in fixative is one container labeled with the patient's name and designated uterus, bilateral fallopian tubes. The specimen consists of a hysterectomy specimen consisting of uterus with cervix and attached bilateral fallopian tubes. The uterus with cervix weighs 266 gm and measures 12.5 x 9 x 8 cm. The serosal surface is plasencia, glistening. A small subserosal nodule is noted. The ectocervical mucosa is unremarkable. The external os is oval in contour. The endocervical canal measures 3.5 cm in length and the endocervical mucosa is plasencia, glistening and unremarkable. The endometrial cavity is compressed to one side and measures 6 cm in length and up to 5 cm in width. The endometrium is plasencia, glistening without any mass lesion and measures 0.1 cm in thickness. Sections of the uterine wall reveal a round submucosal to intramural nodular mass in the anterior uterine wall measuring 6.5 x 6 x 5 cm. Sections of this mass reveal focally hemorrhagic cut surfaces. Areas of necrosis or cystic degeneration are not seen. A small subserosal nodule is also noted measuring 0.4 cm in greatest dimension. The uninvolved uterine wall measures up to 1.5 cm in thickness. The right fallopian tube measures 7 cm in length and up to 0.5 cm in diameter. The fimbrial end is identified. Sections reveal unremarkable cut surfaces. The left fallopian tube is similar appearance to right and measures up to 10 cm in length and 0.5 cm in diameter. Rn Otolaryngology sections are submitted in ten cassettes as follows: 1 - anterior cervix, 2 - posterior cervix, 3 & 4 - anterior uterine wall, 5 & 6 - posterior uterine wall, 7 - larger nodular mass, 8 - larger nodular mass and also the small subserosal nodular mass, 9 - right fallopian tube, 10 - left fallopian tube. / LA:sam 05/31/18 TC:1 CPT: 15408
--- NOTE | 2018-05-31 01:22 | NURSING ---
In to see pt who called out d/t increased bleeding. Assessed large clot as well as approx. 300 cc blood in bedpan. Pt not c/o of abdominal cramping and discomfort.
--- NOTE | 2018-05-31 01:25 | NURSING ---
In to see pt who called out d/t increased bleeding. Denies dizziness/lightheadedness, face is pale. BP + Pulse wnl. Assessed large single clot as well as approx. 300 cc blood in bedpan. Pt now c/o of abdominal cramping and discomfort. Lab just in for HH draw. Contacting physician and will continue to monitor.
[2018-05-31 01:50] LABS: Hemoglobin 7.3 g/dl (12.0-15.0)
--- NOTE | 2018-05-31 02:36 | PCM.PN.BLA ---
Progress Note PROGRESS NOTE Notified by RN patient starting heavy bleeding approximately 0130h. Patient reports cramping occurring and feels lightheaded. She is passing large clots. Denies nausea, chest pain, shortness of breath. She completed a 3rd unit PRBC earlier today. Tolerated Provera well. Was started on Lovenox bridge to Coumadin with last dose Lovenox at 2124h and last ate at 1930h. Vitals reviewed, wnl, RRR, abdomen soft, nontender, nondistended. Bimanual exam performed with mild cervical dilation noted and evacuation of approximately 100cc of blood and clot and Attend pad was approximately 80% saturated. Will order single dose Provera 10mg PO now and increase tid dosing to 20mg. Start transfusion of 4th U PRBC now, type and hold additional 4 units. Should bleeding persist will proceed with further transfusion and hysterectomy. NPO. Hysterectomy indications reviewed. Pt understands she is at significant risk for bleeding with associated risk for cardiac complications. KRISTOPHER risks including pain, infection including abscess/sepsis, cuff dehiscence with possible evisceration, ureteral/bladder/bowel injury, scarring, need for further surgery, nerve injury, pelvic organ prolapse, urinary incontinence, VTE, . Post-op restrictions reviewed, pt reports understanding and given opportunity to ask questions. Questions answered to her satisfaction.
--- NOTE | 2018-05-31 06:28 | PN.OBGYN_ITS ---
Subjective: Reports lightheadedness. Heavy bleeding continues, passed blood like I was urinating and multiple clots. Objective: AVSS - Physical Exam General: Alert, Oriented x3, Cooperative, No apparent distress HEENT: Atraumatic, Normocephalic Lungs: Clear to auscultation, Normal air movement Cardiovascular: Regular rate, Regular Rhythm Abdomen: Soft, Non Tender, Non-Distended Extremities: No edema, No Calf Tenderness Neurological: Neuro grossly intact, - - Approximately 500-600mL of blood in basin, pt reports also additional blood on pad before change. Current pad approximately 30% saturated. Vital Signs Temp Pulse Resp BP Pulse Ox 98.7 F 94 16 113/71 97 05/31/18 05:30 05/31/18 05:30 05/31/18 05:30 05/31/18 05:30 05/31/18 05:30 Oxygen Delivery Method Room Air Weight: 70.08 kg Body Mass Index (BMI) 24.2 Intake and Output for Last 24 Hours 05/29/18 05/30/18 05/31/18 23:59 23:59 23:59 Intake Total 1435 / 1435 2368 / 2368 377 / 377 Output Total 250 / 250 Balance 1435 / 1435 2118 / 2118 377 / 377 Laboratory Tests Past 24 Hrs 05/29/18 05/29/18 05/29/18 11:45 11:45 11:45 WBC RBC Hgb Hct MCV MCH MCHC RDW RDW Differential Plt Count MPV Immature Gran % (Auto) Neut % (Auto) Lymph % (Auto) [place] % (Auto) Eos % (Auto) Baso % (Auto) Absolute Neuts (auto) Absolute Lymphs (auto) Total Counted Sodium Potassium Chloride Carbon Dioxide Anion Gap BUN Creatinine Estim Creat Clear Calc Est GFR (MDRD) Af Amer Est GFR (MDRD) Non-Af BUN/Creatinine Ratio Glucose Calcium Crossmatch See Detail See Detail See Detail 05/30/18 05/30/18 05/30/18 05:50 05:50 14:50 WBC 10.6 RBC 2.42 L Hgb 7.1 L 8.0 L Hct 21.3 L 23.9 L MCV 88.0 MCH 29.3 MCHC 33.3 RDW 14.4 RDW Differential 43.8 Plt Count 176 MPV 9.9 Immature Gran % (Auto) 0.400 Neut % (Auto) 54.2 Lymph % (Auto) 36.2 [place] % (Auto) 8.3 Eos % (Auto) 0.7 Baso % (Auto) 0.2 Absolute Neuts (auto) 5.7 Absolute Lymphs (auto) 3.83 Total Counted Not Reportable Sodium 140 Potassium 3.8 Chloride 110 H Carbon Dioxide 22.0 Anion Gap 8 BUN 8 Creatinine 0.61 Estim Creat Clear Calc 118.02 Est GFR (MDRD) Af Amer 140 Est GFR (MDRD) Non-Af 115 BUN/Creatinine Ratio 13.2 Glucose 101 Calcium 7.4 L Crossmatch 05/30/18 05/30/18 05/31/18 17:40 21:45 01:10 WBC RBC Hgb 7.6 L 7.3 L 7.3 L Hct 23.0 L 21.8 L 22.0 L MCV MCH MCHC RDW RDW Differential Plt Count MPV Immature Gran % (Auto) Neut % (Auto) Lymph % (Auto) [place] % (Auto) Eos % (Auto) Baso % (Auto) Absolute Neuts (auto) Absolute Lymphs (auto) Total Counted Sodium Potassium Chloride Carbon Dioxide Anion Gap BUN Creatinine Estim Creat Clear Calc Est GFR (MDRD) Af Amer Est GFR (MDRD) Non-Af BUN/Creatinine Ratio Glucose Calcium Crossmatch Medical Necessity - Tobacco Use Smoking Status: Never smoker Tobacco Use: Non-smoker Assessment/Plan All Active Problems (Last Updated 05/29/18 @ 20:14 by Yady Beltre MD) Menorrhagia (Acute) Metrorrhagia (Acute) Endometrial mass (Acute) Anemia (Acute) 43yo with menometrorrhagia and acute on chronic blood loss anemia due to symptomatic uterine fibroid. -Heavy breakthrough bleeding despite Provera. Will place second IV and proceed with aggressive transfusion including FFP. -Hold anticoagulation. -Advise proceeding with hysterectomy at this time. High risk for VTE will plan to resume Lovenox shortly following procedure as long as hemostasis maintained. -KRISTOPHER risks, benefits, indications reviewed. Patient in agreement with plan.
[2018-05-31] MEDS: Cefazolin 2 GM in 0.9% Normal Saline 100 ML IV (07:27)
--- NOTE | 2018-05-31 08:38 | PCM.OPRPT ---
Problem List (1) Menorrhagia Status: Acute (2) Metrorrhagia Status: Acute (3) Leiomyoma Status: Acute (4) Anemia Status: Acute Report of Operation Date of Procedure: 05/31/18 Pre-Operative Diagnosis: menorrhagia, metrorrhagia, anemia, leiomyoma Post-Operative Diagnosis: Same Surgery/Procedure Performed:: Total abdominal hysterectomy, bilateral salpingectomy cross tie cutter: Yady Beltre Type of Anesthesia:: General Anesthesiologist: Felix Navarrete Special Medications: Ancef, Cefotetan, ten Specimen's removed: uterus and bilateral fallopian tubes Drains: none Estimated Blood Loss (mL): 250 Fluids Replaced: Lactated ringers Grafts/Implants Used: none - Complications none - Admit VTE Documentation VTE Present on Admission: Yes VTE Mechan Device Prophylaxis: SCD's VTE Pharm Prophylaxis ordered?: Yes
--- NOTE | 2018-05-31 08:44 | OP.PCM_ITS ---
Problem List (1) Menorrhagia Status: Acute (2) Metrorrhagia Status: Acute (3) Leiomyoma Status: Acute (4) Anemia Status: Acute Report of Operation Date of Procedure: 05/31/18 Pre-Operative Diagnosis: menorrhagia, metrorrhagia, anemia, leiomyoma Post-Operative Diagnosis: Same Surgery/Procedure Performed:: Total abdominal hysterectomy, bilateral salpingectomy dealer sales manager: Yady Beltre Type of Anesthesia:: General Anesthesiologist: Felix Navarrete Special Medications: Ancef, Cefotetan, ten Specimen's removed: uterus and bilateral fallopian tubes Drains: none Estimated Blood Loss (mL): 250 Fluids Replaced: Lactated ringers Grafts/Implants Used: none - Complications none - Admit VTE Documentation VTE Present on Admission: Yes VTE Mechan Device Prophylaxis: SCD's VTE Pharm Prophylaxis ordered?: Yes
--- NOTE | 2018-05-31 09:16 | OP.PCM_ITS ---
Problem List (1) Menorrhagia Status: Acute (2) Metrorrhagia Status: Acute (3) Leiomyoma Status: Acute (4) Anemia Status: Acute Report of Operation Date of Procedure: 05/31/18 Pre-Operative Diagnosis: menorrhagia, metrorrhagia, anemia, leiomyoma Post-Operative Diagnosis: Same Surgery/Procedure Performed:: Total abdominal hysterectomy, bilateral salpingectomy button breaker operator: Yady Beltre Type of Anesthesia:: General Anesthesiologist: Felix Navarrete Special Medications: Ancef, Cefotetan, ten Specimen's removed: uterus and bilateral fallopian tubes Drains: none Estimated Blood Loss (mL): 250 Fluids Replaced: Lactated ringers Description of Procedure: Patient was noted to have continued heavy bleeding through the night with a decision by Dr. Erika Yoo for patient to undergo a hysterectomy. To review the patient had been attempting a conversion from the Xarelto anticoagulant to the Coumadin anticoagulant with the aid of the hospitalist service for the potential need of an emergency hysterectomy. Patient had received additional IV fluid hydration along with additional packed red blood cells prior to coming to the operating room. To review for the operating room course 2 L of lactated Ringer's, 500 cc of normal saline, 1 unit of fresh frozen plasma, 1 unit of packed red blood cells was infused during the operative. In the time in the operating suite. Patient was brought to the operating room consent have been obtained by Dr. Erika Yoo as well as discussions and patient was undergoing a general anesthetic after timeout had occurred and monitor placement upon my entry into the room. After undergoing a general anesthetic patient was prepped and draped in the normal sterile fashion Alcaraz catheter was inserted as well. Once a second timeout occurred verification of the consent Pfannenstiel skin incision was made with a scalpel taken down to the underlying fascial layer which was nicked in midline and incised bilaterally to expand and extend that incision from the fascia. Using Ceferino clamps anterior and posterior flaps of the fascia were separate from the underlying rectus muscles rectus muscles were midline and a blunt entry into the peritoneal layer occurred. This was extended anteriorly as well as posteriorly as well as anteriorly. The Chad self-retaining retractor was placed into the incision with bowel packing occurred bladder was placed behind a bladder retractor. The uterus was elevated with a single-tooth tenaculum the right round ligament was identified transected and suture tied with 0 Vicryl suture hemostasis was noted development of the broad ligament and the anterior posterior lips occurred visualization of the ureter well away from the area of operation was noted and developed and the vesicouterine peritoneum occurred. The right salpingectomy occurred at this point time as well as transection of the uterine ovarian ligament along with suture tying with 0 Vicryl suture and hemostasis was noted further development of the vesicouterine peritoneum occurred and securing of the uterine vasculature on the patient's right side occurred with a Danielle clamp this was then suture tied after transection with an 0 Vicryl suture and hemostasis was noted cardinal ligament was then grasped cauterized and grasped and transected and suture tied with 0 Vicryl suture on the patient's left side the exact same procedure occurred in the patient's left side with securing of the round ligament transection and suture tying with 0 Vicryl suture followed by development of the broad ligament and anterior posterior lesion for the development of the vesicouterine peritoneum and separation from the anterior uterus and cervical region the left salpingectomy occurred followed by the transection of the uterine ovarian ligament was suture tying with 0 Vicryl suture hemostasis was noted skeletonization of the uterine vasculature on the patient's left side occurred followed by grasping transection and suture tying with 0 Vicryl suture. For the development of the cardinal ligament uterosacral ligament were occurred in the patient's left side and these were transected suture tied with Vicryl suture the uterosacral ligament was cauterized R transected and suture tied with 0 Vicryl suture after transection. There was transection and removal of the cervix away from the vaginal cuff region using curved Danielle clamps and these areas were then transected suture tied with 0 Vicryl suture of the cervix uterus bilateral fallopian tubes were handed off for pathological evaluation additional 0 Vicryl sutures of [id number] stitches of the vaginal cuff occurred and hemostasis was noted irrigation of the pelvis occurred ureters noted to be well away from the area of operation noted to be peristalsing bilaterally wrist was placed at the bladder region some oversewing of the peritoneum occurred on the patient's left side and hemostasis was noted all sponge counts were correct x2 with the Chad and all the retractors were removed further irrigation of the pelvis occurred and hemostasis was once again reassured reassured the peritoneal layer was then closed using 2-0 Vicryl suture in a running stitch hemostasis was noted the fascia layer was then closed with an 0 Vicryl suture in a running interlocking stitch and hemostasis was noted. The subcutaneous layer was approximated with 3-0 Vicryl in 5 [id number] stitches hemostasis was noted the skin was then closed in a subcuticular fashion with monopolar 4-0 suture sponge instrument needle counts correct x2. It been noted that the ureters were peristalsing bilaterally prior to closure of the incision. Patient noted to be in stable condition and will be taken to recovery room to be readmitted to the [facility].
--- NOTE | 2018-05-31 09:24 | EKG12_ITS ---
Test Reason : Blood Pressure : / mmHG Vent. Rate : 099 BPM Atrial Rate : 099 BPM P-R Int : 140 ms QRS Dur : 080 ms QT Int : 366 ms P-R-T Axes : 063 086 -82 degrees QTc Int : 469 ms Normal sinus rhythm ST & T wave abnormality, consider inferior ischemia ST & T wave abnormality, consider anterolateral ischemia Prolonged QT Abnormal ECG Confirmed by SHAHID ORTEGA, DEBI ([id number]), news videotape editor ANNA BOX ([id number] on 06/01/2018 2:34:30 PM Referred By: Yady Beltre Confirmed By:DEBI KEY MD
--- NOTE | 2018-05-31 09:57 | EKG12_ITS ---
Test Reason : POSTOP Blood Pressure : / mmHG Vent. Rate : 087 BPM Atrial Rate : 087 BPM P-R Int : 148 ms QRS Dur : 080 ms QT Int : 362 ms P-R-T Axes : 062 070 007 degrees QTc Int : 435 ms Normal sinus rhythm T wave abnormality, consider inferior ischemia Abnormal ECG When compared with ECG of 31-MAY-2018 10:27, MANUAL COMPARISON REQUIRED, DATA IS UNCONFIRMED Confirmed by MELVIN ORTEGA, ROXI ([id number]), production editor ANNA BOX ([id number]) on 06/05/2018 4:11:04 PM Referred By: Yady Beltre Confirmed By:ROXI CHARLES MD
[2018-05-31 10:03] LABS: Absolute Lymphocyte Count 2.14 X10^3/ul (0.83-4.51); Absolute Neutrophil Count 10.9 X10^3/uL (2.0-7.7); Basophil# 0.02 X10^3/uL; Basophil% 0.1 % (0-1); Eosinophil# 0.01 X10^3/uL; Eosinophils% 0.1 % (0-5); Hematocrit 18.4 % (37-47); Hemoglobin 6.2 g/dl (12.0-15.0); Lymphocyte # 2.14 X10^3/ul (4.0); Lymphocyte % 15.2 % (19-41); Mean Corp Hgb Conc 33.7 g/gl (32-36); Mean Platelet Vol. 9.5 fl (6.2-12.0); Monocyte# 0.89 X10^3/uL; Monocyte% 6.3 % (0-10); Neutrophil # 10.92 X10^3/uL (2.7-7.7); Neutrophil % 77.7 % (47-70); POSITIVE COUNT NO; POSITIVE DIFFERENTIAL NO; POSITIVE MORPHOLOGY NO; Platelet Count 130 K/mm3 (150-450); RBC Distribution Width CV 13.9 % (11.6-14.6); RBC Distribution Width SD 43.7 fl (35.1-43.9); White Blood Count 14.1 K/mm3 (4.4-11.0)
[2018-05-31 10:16] LABS: Anion Gap 7 (5-15); BUN 7 mg/dL (7-18); BUN/Creat Ratio 7.5 RATIO (10-20); Calcium,Total 6.7 mg/dL (8.5-10.1); Chloride 114 mmol/L (98-107); Creatinine, Serum 0.93 mg/dL (0.55-1.02); EST Glomerular Filtration Rate 71 mL/min (>60); Est Glom Filt Rate - Afr Amer 86 mL/min (>60); Estimated Creatinine Clearance 77.41 ml/min; Glucose 149 mg/dL (74-106); Magnesium 1.4 mg/dL (1.6-2.6); Potassium 3.7 mmol/L (3.5-5.1); Sodium Level 145 mmol/L (136-145)
--- NOTE | 2018-05-31 10:26 | PCM.PN.HOSP ---
Patient Problems: Active and Suspected Problems (Last Updated 05/29/18 @ 20:14 by Yady Beltre MD) Menorrhagia (Acute) Metrorrhagia (Acute) Leiomyoma (Acute) Anemia (Acute) Subjective: Admission Hgb 8, decreased to 7.1, 3 u PRBC ordered and administered. Serial HH performed, discussions w/ primary service given history of DVT LLE, needing 1 additional month of anticoagulation to complete 3 month therapy. Decision given improvement since initial presentation 05/30/18 to start coumadin w/ lovenox bridge to be able to more readily reverse if recurrent bleeding. Did not tolerate initiation, onset recurrent vaginal bleeding 05/31/18 ~ 1 am, repeat Hgb series w/ 8-->7.7-->8 following transfusions prior-->7.6-->7.3 x 2, dropped 9:52 am 6.2 post OR, given 1 additional u in OR, now s/p abdominal hysterectomy, in PACU giving 1 additional u PRBC for total 5 u PRBC with planned additional 2 u planned to be administered, continue serial HH, given additional supplementation as needed, was given FFP 1 pack. Will continue to closely monitor on PCU, EKG changes w/ telemetry changes operatively, repeat EKG pending PACU, discussed consideration cardiology evaluation w/ Dr. Mcdermott, will obtain ECHO, cycle cardiac enzymes, pending mag, pending BMP. Plan repeat EKG PRN and in AM. DVT US LLE pending additionally. She with onset recurrent bleeding early this a.m. with worsening fatigue and weakness. Additional 2 unit PRBC ordered as well as 1 pack FFP. Patient is status post OR status post hysterectomy noting fatigue, general weakness and abdominal discomfort discussed plan of care which included transition to PCU given EKG changes with planned echocardiogram and close monitoring of hemoglobin as well as cycling of enzymes and repeat EKGs to which she was amenable. Patient denies fevers, nausea, emesis, chest pain or dyspnea. Objective: Physical Examination: General: awakens to stimuli, intermittently alert, oriented to self, able to answer questions appropriate, fatigued, closing eyes frequently, cooperative, seated upright in he PACU bed in no apparent distress. Skin: Pale palor now, no icterus, no cyanosis. HEENT: AT/NC, EOMI but difficult give recent sedation, PERRLA, dry MM. Lungs: Diminished BS BL bases, mild effort, decreased given recent sedation, no rales, ronchi or wheezing. Heart: Regular rate and rhythm; no gallop, rub audible. Abdomen: soft, recent OR s/p hysterectomy, expected TTP, moderately distended, no bleeding on dressing and no blood on bad, decreased BS. Extremities: no cyanosis, clubbing, or edema. Neurological: awakens to stimuli, intermittently alert, oriented to self, able to answer questions appropriate, fatigued, closing eyes frequently, cooperative, seated upright in he PACU bed in no apparent distress; cognitive function not baseline intact; pupils equally reactive to light and accomodation; cranial nerves II-XII grossly normal, moving all 4 extremities but extremely limited given recent OR and sedation. Psychiatric: affect appears fatigued, ill, no acute evidence of depressive or anxiety feelings. Vitals/I&O's: Vital Signs Temp Pulse Resp BP Pulse Ox 98.9 F 75 18 111/65 100 05/31/18 10:22 05/31/18 10:22 05/31/18 10:22 05/31/18 10:22 05/31/18 10:22 Oxygen Flow Rate (L/min) 15 Oxygen Delivery Method Non-Rebreather Weight: 154 lb 8 oz Body Mass Index (BMI) 24.2 Intake and Output for Last 24 Hours 05/29/18 05/30/18 05/31/18 23:59 23:59 23:59 Intake Total 1435 / 1435 2368 / 2368 1439 / 1439 Output Total 250 / 250 48 / 48 Balance 1435 / 1435 2118 / 2118 1391 / 1391 Laboratory Results 05/29/18 11:45: Crossmatch See Detail 05/29/18 11:45: Crossmatch See Detail 05/29/18 11:45: Crossmatch See Detail 05/30/18 14:50: Hgb 8.0 L, Hct 23.9 L 05/30/18 17:40: Hgb 7.6 L, Hct 23.0 L 05/30/18 21:45: Hgb 7.3 L, Hct 21.8 L 05/31/18 01:10: Hgb 7.3 L, Hct 22.0 L 05/31/18 09:52: Troponin I 0.018 05/31/18 09:52: WBC 14.1 H, RBC 2.00 L, Hgb 6.2 L, Hct 18.4 L, MCV 92.0, MCH 31.0, MCHC 33.7, RDW 13.9, RDW Differential 43.7, Plt Count 130 L, MPV 9.5, Immature Gran % (Auto) 0.600, Neut % (Auto) 77.7 H, Lymph % (Auto) 15.2 L, Heard % (Auto) 6.3, Eos % (Auto) 0.1, Baso % (Auto) 0.1, Absolute Neuts (auto) 10.9 H, Absolute Lymphs (auto) 2.14, Total Counted Not Reportable 05/31/18 09:52: Sodium 145, Potassium 3.7, Chloride 114 H, Carbon Dioxide 24.0, Anion Gap 7, BUN 7, Creatinine 0.93, Estim Creat Clear Calc 77.41, Est GFR (MDRD) Af Amer 86, Est GFR (MDRD) Non-Af 71, BUN/Creatinine Ratio 7.5 L, Glucose 149 H, Calcium 6.7 L, Magnesium 1.4 L Current Medications Acetaminophen (Tylenol) 1,000 mg PO Q8H PRN PRN PRN Reason: Mild pain or fever (>99.6F) Lactated Ringer's () 1,000 mls @ 150 mls/hr IV .Q6H40M [facility] Famotidine 20 mg/ Sodium (Chloride) 10 mls @ 300 mls/hr IV Q12 [facility] Magnesium Hydroxide (Milk Of Magnesia) 30 ml PO DAILY PRN PRN PRN Reason: Constipation Last Admin: 05/30/18 13:46 Dose: 30 ml Metoclopramide HCl (Reglan) 10 mg IV Q8 [facility] Morphine Sulfate () 4 mg IV Q2H PRN PRN PRN Reason: SEVERE PAIN (6-10/10) Ondansetron HCl (Zofran) 4 mg IV Q8H PRN PRN PRN Reason: NAUSEA Oxycodone HCl (Oxyir) 5 - 10 mg PO Q4H PRN PRN PRN Reason: MOD-SEVERE PAIN (4-10/10) Simethicone (Mylicon) 80 mg PO [facility] Medical Necessity - Tobacco Use Smoking Status: Never smoker Tobacco Use: Non-smoker Assessment/Plan All Active Problems (Last Updated 05/29/18 @ 20:14 by Yady Beltre MD) Menorrhagia (Acute) Metrorrhagia (Acute) Endometrial mass (Acute) Anemia (Acute) Menorrhagia (Acute) Metrorrhagia (Acute) Leiomyoma (Acute) Anemia (Acute) The patient is a 43 y/o F w/ PMHx: 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 (1) Acute on Chronic Anemia, Iron Deficiency Anemia, Secondary to #3: Admission Hgb 8, decreased to 7.1, 3 u PRBC ordered and administered. Serial HH performed, discussions w/ primary service given history of DVT LLE, needing 1 additional month of anticoagulation to complete 3 month therapy. Decision given improvement since initial presentation 05/30/18 to start coumadin w/ lovenox bridge to be able to more readily reverse if recurrent bleeding. Did not tolerate initiation, onset recurrent vaginal bleeding 05/31/18 ~ 1 am, repeat Hgb series w/ 8-->7.7-->8 following transfusions prior-->7.6-->7.3 x 2, dropped 9:52 am 6.2 post OR, given 1 additional u in OR, now s/p abdominal hysterectomy, in PACU giving 1 additional u PRBC for total 5 u PRBC with planned additional 2 u planned to be administered, continue serial HH, given additional supplementation as needed, was given FFP 1 pack. Will continue to closely monitor on PCU, EKG changes w/ telemetry changes operatively, repeat EKG pending PACU, discussed consideration cardiology evaluation w/ Dr. Mcdermott, will obtain ECHO, cycle cardiac enzymes, pending mag, pending BMP. Plan repeat EKG PRN and in AM. Reviewed changes, current status and plan of care with and family. Amenable to this pathway of care. (2) Prior (Dx March 29, 2018) LLE DVT: As noted, given history, preference per Senior Radiation Therapist to transition off xarelto. Has been treated 2 months currently, needs 1 additional month treatment. Decision given improvement since initial presentation 05/30/18 to start coumadin w/ lovenox bridge to be able to more readily reverse if recurrent bleeding. Did not tolerate initiation, onset recurrent vaginal bleeding 05/31/18 ~ 1 am. Per discussion w/ Dr. Mcdermott will continue to closely trend Hgb, re-assessment 06/01/18 AM and initiation of heparin drip if cleared per Senior Radiation Therapist with continued close Hgb monitoring, bleeding monitoring given recent OR and if remains stable x 24 hours then consider restart Xarelto. Given complexity of her presentation, will obtain DVT US LLE to assess if difficulties to avoid continued treatment. (3) Jessy-operative Telemetry and EKG changes: EKG w/ non-specific ST-T wave changes, plan repeat EKG post-PRBC in PACU, if concerning, low threshold for Cardiology assessment which was discussed w/ primary service Dr. Mcdermott. Transition from PACU to PCU, maintain on telemetry, repeat EKG PRN and in AM, obtain ECHO, obtain mag, BMP, cycle cardiac enzymes, suspect secondary to her acute anemia. (4) Acute on Chronic Menometrorrhagia secondary to Fibroids: 8-->7.7-->8 following transfusions prior-->7.6-->7.3 x 2, dropped 9:52 am 6.2 post OR, given 1 additional u in OR, now s/p abdominal hysterectomy, in PACU giving 1 additional u PRBC for total 5 u PRBC with planned additional 2 u planned to be administered, continue serial HH, given additional supplementation as needed, was given FFP 1 pack. Expect improvement now that s/p hysterectomy since the primary etiology, complicated by anticoagulation needs. (5) DVT Prophylaxis: SCDs, discontinued coumadin w/ therapeutic lovenox bridge. Will re-evaluate in AM as noted for consideration of start heparin drip once confirmed per Senior Radiation Therapist following their assessment. Code Visit Inpatient E&M: 48176 Subs Hosp L3
--- NOTE | 2018-05-31 10:43 | PN_ITS ---
Patient Problems: Active and Suspected Problems (Last Updated 05/29/18 @ 20:14 by Yady Yoo MD) Menorrhagia (Acute) Metrorrhagia (Acute) Leiomyoma (Acute) Anemia (Acute) Subjective: Admission Hgb 8, decreased to 7.1, 3 u PRBC ordered and administered. Serial HH performed, discussions w/ primary service given history of DVT LLE, needing 1 additional month of anticoagulation to complete 3 month therapy. Decision given improvement since initial presentation 05/30/18 to start coumadin w/ lovenox bridge to be able to more readily reverse if recurrent bleeding. Did not tolerate initiation, onset recurrent vaginal bleeding 05/31/18 ~ 1 am, repeat Hgb series w/ 8-->7.7-->8 following transfusions prior-->7.6-->7.3 x 2, dropped 9:52 am 6.2 post OR, given 1 additional u in OR, now s/p abdominal hysterectomy, in PACU giving 1 additional u PRBC for total 5 u PRBC with planned additional 2 u planned to be administered, continue serial HH, given additional supplementation as needed, was given FFP 1 pack. Will continue to closely monitor on PCU, EKG changes w/ telemetry changes operatively, repeat EKG pending PACU, discussed consideration cardiology evaluation w/ Dr. Mcdermott, will obtain ECHO, cycle cardiac enzymes, pending mag, pending BMP. Plan repeat EKG PRN and in AM. DVT US LLE pending additionally. She with onset recurrent bleeding early this a.m. with worsening fatigue and weakness. Additional 2 unit PRBC ordered as well as 1 pack FFP. Patient is status post OR status post hysterectomy noting fatigue, general weakness and abdominal discomfort discussed plan of care which included transition to PCU given EKG changes with planned echocardiogram and close monitoring of hemoglobin as well as cycling of enzymes and repeat EKGs to which she was amenable. Patient denies fevers, nausea, emesis, chest pain or dyspnea. Objective: Physical Examination: General: awakens to stimuli, intermittently alert, oriented to self, able to answer questions appropriate, fatigued, closing eyes frequently, cooperative, seated upright in he PACU bed in no apparent distress. Skin: Pale palor now, no icterus, no cyanosis. HEENT: AT/NC, EOMI but difficult give recent sedation, PERRLA, dry MM. Lungs: Diminished BS BL bases, mild effort, decreased given recent sedation, no rales, ronchi or wheezing. Heart: Regular rate and rhythm; no gallop, rub audible. Abdomen: soft, recent OR s/p hysterectomy, expected TTP, moderately distended, no bleeding on dressing and no blood on bad, decreased BS. Extremities: no cyanosis, clubbing, or edema. Neurological: awakens to stimuli, intermittently alert, oriented to self, able to answer questions appropriate, fatigued, closing eyes frequently, cooperative, seated upright in he PACU bed in no apparent distress; cognitive function not baseline intact; pupils equally reactive to light and accomodation; cranial nerves II-XII grossly normal, moving all 4 extremities but extremely limited given recent OR and sedation. Psychiatric: affect appears fatigued, ill, no acute evidence of depressive or anxiety feelings. Vitals/I&O's: Vital Signs Temp Pulse Resp BP Pulse Ox 98.9 F 75 18 111/65 100 05/31/18 10:22 05/31/18 10:22 05/31/18 10:22 05/31/18 10:22 05/31/18 10:22 Oxygen Flow Rate (L/min) 15 Oxygen Delivery Method Non-Rebreather Weight: 154 lb 8 oz Body Mass Index (BMI) 24.2 Intake and Output for Last 24 Hours 05/29/18 05/30/18 05/31/18 23:59 23:59 23:59 Intake Total 1435 / 1435 2368 / 2368 1439 / 1439 Output Total 250 / 250 48 / 48 Balance 1435 / 1435 2118 / 2118 1391 / 1391 Laboratory Results 05/29/18 11:45: Crossmatch See Detail 05/29/18 11:45: Crossmatch See Detail 05/29/18 11:45: Crossmatch See Detail 05/30/18 14:50: Hgb 8.0 L, Hct 23.9 L 05/30/18 17:40: Hgb 7.6 L, Hct 23.0 L 05/30/18 21:45: Hgb 7.3 L, Hct 21.8 L 05/31/18 01:10: Hgb 7.3 L, Hct 22.0 L 05/31/18 09:52: Troponin I 0.018 05/31/18 09:52: WBC 14.1 H, RBC 2.00 L, Hgb 6.2 L, Hct 18.4 L, MCV 92.0, MCH 31.0, MCHC 33.7, RDW 13.9, RDW Differential 43.7, Plt Count 130 L, MPV 9.5, Immature Gran % (Auto) 0.600, Neut % (Auto) 77.7 H, Lymph % (Auto) 15.2 L, [place] % (Auto) 6.3, Eos % (Auto) 0.1, Baso % (Auto) 0.1, Absolute Neuts (auto) 10.9 H, Absolute Lymphs (auto) 2.14, Total Counted Not Reportable 05/31/18 09:52: Sodium 145, Potassium 3.7, Chloride 114 H, Carbon Dioxide 24.0, Anion Gap 7, BUN 7, Creatinine 0.93, Estim Creat Clear Calc 77.41, Est GFR (MDRD) Af Amer 86, Est GFR (MDRD) Non-Af 71, BUN/Creatinine Ratio 7.5 L, Glucose 149 H, Calcium 6.7 L, Magnesium 1.4 L Current Medications Acetaminophen (Tylenol) 1,000 mg PO Q8H PRN PRN PRN Reason: Mild pain or fever (>99.6F) Lactated Ringer's () 1,000 mls @ 150 mls/hr IV .[facility]40[facility] Famotidine 20 mg/ Sodium (Chloride) 10 mls @ 300 mls/hr IV Q12 [facility] Magnesium Hydroxide (Milk Of Magnesia) 30 ml PO DAILY PRN PRN PRN Reason: Constipation Last Admin: 05/30/18 13:46 Dose: 30 ml Metoclopramide HCl (Reglan) 10 mg IV Q8 [facility] Morphine Sulfate () 4 mg IV Q2H PRN PRN PRN Reason: SEVERE PAIN (6-10/10) Ondansetron HCl (Zofran) 4 mg IV Q8H PRN PRN PRN Reason: NAUSEA Oxycodone HCl (Oxyir) 5 - 10 mg PO Q4H PRN PRN PRN Reason: MOD-SEVERE PAIN (4-10/10) Simethicone (Mylicon) 80 mg PO [facility] Medical Necessity - Tobacco Use Smoking Status: Never smoker Tobacco Use: Non-smoker Assessment/Plan All Active Problems (Last Updated 05/29/18 @ 20:14 by Yady Beltre MD) Menorrhagia (Acute) Metrorrhagia (Acute) Endometrial mass (Acute) Anemia (Acute) Menorrhagia (Acute) Metrorrhagia (Acute) Leiomyoma (Acute) Anemia (Acute) The patient is a 43 y/o F w/ PMHx: 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 (1) Acute on Chronic Anemia, Iron Deficiency Anemia, Secondary to #3: Admission Hgb 8, decreased to 7.1, 3 u PRBC ordered and administered. Serial HH performed, discussions w/ primary service given history of DVT LLE, needing 1 additional month of anticoagulation to complete 3 month therapy. Decision given improvement since initial presentation 05/30/18 to start coumadin w/ lovenox bridge to be able to more readily reverse if recurrent bleeding. Did not tolerate initiation, onset recurrent vaginal bleeding 05/31/18 ~ 1 am, repeat Hgb series w/ 8-->7.7-->8 following transfusions prior-->7.6-->7.3 x 2, dropped 9:52 am 6.2 post OR, given 1 additional u in OR, now s/p abdominal hysterectomy, in PACU giving 1 additional u PRBC for total 5 u PRBC with planned additional 2 u planned to be administered, continue serial HH, given additional supplementation as needed, was given FFP 1 pack. Will continue to closely monitor on PCU, EKG changes w/ telemetry changes operatively, repeat EKG pending PACU, discussed consideration cardiology evaluation w/ Dr. Mcdermott, will obtain ECHO, cycle cardiac enzymes, pending mag, pending BMP. Plan repeat EKG PRN and in AM. Reviewed changes, current status and plan of care with and family. Amenable to this pathway of care. (2) Prior (Dx March 29, 2018) LLE DVT: As noted, given history, preference per Density Control Puncher to transition off xarelto. Has been treated 2 months currently, needs 1 additional month treatment. Decision given improvement since initial presentat ion 05/30/18 to start coumadin w/ lovenox bridge to be able to more readily reverse if recurrent bleeding. Did not tolerate initiation, onset recurrent vaginal bleeding 05/31/18 ~ 1 am. Per discussion w/ Dr. Mcdermott will continue to closely trend Hgb, re-assessment 06/01/18 AM and initiation of heparin drip if cleared per Density Control Puncher with continued close Hgb monitoring, bleeding monitoring given recent OR and if remains stable x 24 hours then consider restart Xarelto. Given complexity of her presentation, will obtain DVT US LLE to assess if difficulties to avoid continued treatment. (3) Jessy-operative Telemetry and EKG changes: EKG w/ non-specific ST-T wave changes, plan repeat EKG post-PRBC in PACU, if concerning, low threshold for Cardiology assessment which was discussed w/ primary service Dr. Mcdermott. Transition from PACU to PCU, maintain on telemetry, repeat EKG PRN and in AM, obtain ECHO, obtain mag, BMP, cycle cardiac enzymes, suspect secondary to her acute anemia. (4) Acute on Chronic Menometrorrhagia secondary to Fibroids: 8-->7.7-->8 following transfusions prior-->7.6-->7.3 x 2, dropped 9:52 am 6.2 post OR, given 1 additional u in OR, now s/p abdominal hysterectomy, in PACU giving 1 additional u PRBC for total 5 u PRBC with planned additional 2 u planned to be administered, continue serial HH, given additional supplementation as needed, was given FFP 1 pack. Expect improvement now that s/p hysterectomy since the primary etiology, complicated by anticoagulation needs. (5) DVT Prophylaxis: SCDs, discontinued coumadin w/ therapeutic lovenox bridge. Will re-evaluate in AM as noted for consideration of start heparin drip once confirmed per Density Control Puncher following their assessment. Code Visit Inpatient E&M: 45209 Subs Hosp L3
--- NOTE | 2018-05-31 10:44 | SUR.PHASEI ---
BOTH DRS. RAI AND JAYLEN CHECKED ON PATIENT, UPDATED ON EKG AND LAB VALUES. DR YORK ORDERED 2 MORE UNITS PRBC TO BE TRANSFUSED WHILE IN PACU. WILL UPDATE DR PATEL.
--- NOTE | 2018-05-31 10:47 | NURSING ---
REPORT CALLED TO PCU
--- NOTE | 2018-05-31 10:50 | SUR.PHASEI ---
VERY LITTLE BLEEDING TO PERIPAD. LUNGS CLEAR. DENIES ANY S/S TRANSFUSION RXN. REPORTS FEELING MORE COMFORTABLE, LESS ANXIOUS. LABS REVIEWED WITH DR PATEL WHO WILL REPORTEDLY ORDER IV MAGNESIUM.
--- NOTE | 2018-05-31 11:36 | SUR.PHASEI ---
Addendum entered by Geri Mars 05/31/18 11:39: NO ADDITIONAL VAGINAL BLEEDING NOTED. 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 Original Note: INITIATING PRBC UNIT #3 WHILE IN PACU. NO S/S TXN RXN, LUNGS CLEAR, DENIES CHEST PAIN, DIFFICULTY BREATHING OR SOB. HAS BEEN SLEEPING QUIETLY, NO S/S DISTRESS, AWAKENS EASILY. REPORTS MINIMAL PAIN, TOLERABLE AT THIS TIME.
--- NOTE | 2018-05-31 12:07 | VDLE_ITS ---
Reason For Study: Hx of LLE PTV clot Procedure LEFT Exam performed portable in patient room. GSV is normal. A preliminary report was called and/or faxed CFV is compressible, spontaneous, phasic, to PCU. competent, and demonstrates normal augmentation. FV is compressible, spontaneous, phasic, competent and demonstrates normal augmentation. POP V is compressible, spontaneous, phasic, competent and demonstrates normal augmentation. T/P Trunk is compressible. PTV is compressible. LT PerV is compressible. Interpretation Summary Deep veins of the left lower extremity are patent and compressible segmentally. There is no evidence of left lower extremity deep vein thrombosis. Valvular competence appears intact within the proximal deep venous system on the left . The left greater saphenous vein appears patent and compressible segmentally. Ordering Physician: Yasmin Estevez Referring Physician: Latisha Rhodes M.D. Performed By: Tammy Cotto RVT
--- NOTE | 2018-05-31 12:07 | ECHOD_ITS ---
Reason For Study: Arrhythmia Procedure This was a 2D Doppler, Color Flow transthoracic echocardiogram. Exam performed portable in patient room. Left Ventricle Normal size and thickness. The estimated ejection fraction is 65 %. Normal diastology for age. No regional wall motion abnormalities noted. Right Ventricle Normal size and thickness. Normal systolic function. Atria Normal left atrium. Normal right atrium. Normal atrial septum. Mitral Valve The mitral valve is structurally normal. No prolapse or stenosis seen. Tricuspid Valve Normal tricuspid valve. Trivial tricuspid valve insufficiency. Right ventricular systolic pressure estimated to be 30 mmHg. Aortic Valve Normal aortic valve. Trisinus/trileaflet aortic valve. Pulmonic Valve Normal pulmonic valve. Trivial pulmonic valve insufficiency. Great Vessels Normal aortic root. Normal arch. Normal inferior vena cava. Inferior vena cava collapse with sniff. Pericardium/Pleural No pericardial effusion. MMode/2D Measurements & Calculations LVIDd: 4.9 cm IVSd: 1.0 cm Ao root diam: 2.7 cm LVIDs: 2.9 cm LVPWd: 0.99 cm RVDd: 3.3 cm FS: 41.3 % LAV(MOD-bp): 29.2 ml LVAd ap4: 25.6 cm2 SV(MOD-sp4): 55.2 ml LAV(MOD-bp) Indexed: 16.1 ml/m2 EDV(MOD-sp4): 79.5 ml LAV(MOD-sp2): 40.2 ml EDV(sp4-el): 78.4 ml LAV(MOD-sp4): 20.1 ml LVAs ap4: 12.2 cm2 ESV(MOD-sp4): 24.3 ml ESV(sp4-el): 24.1 ml EF(MOD-sp4): 69.4 % EF(sp4-el): 69.2 % SV(sp4-el): 54.2 ml LA A4 area: 10.7 cm2 RA A4 area: 12.2 cm2 Doppler Measurements & Calculations MV E max rodger: 111.2 cm/sec Lat Peak E' Rodger: 16.5 cm/sec Med Peak E' Rodger: 14.3 cm/sec MV A max rodger: 86.4 cm/sec E/E' lat: 6.8 E/E' med: 7.8 MV E/A: 1.3 Ao V2 max: 185.2 cm/sec LV V1 max: 152.0 cm/sec PA V2 max: 107.7 cm/sec Ao max P.7 mmHg LV V1 max P.2 mmHg Ao V2 mean: 129.1 cm/sec Ao mean P.5 mmHg Ao V2 VTI: 37.1 cm PI end-d rodger: 115.7 cm/sec TR max rodger: 249.9 cm/sec TR max P.0 mmHg Interpretation Summary The estimated ejection fraction is 65 %. Normal diastology for age. Trivial tricuspid valve insufficiency. Right ventricular systolic pressure estimated to be 30 mmHg. There is no comparison study available. Ordering Physician: Yasmin Estevez Referring Physician: Latisha Rhodes Performed By: Henna Sesay RDCS, RVT
--- NOTE | 2018-05-31 12:11 | SUR.PHASEI ---
LUNGS CLEAR, DENIES ANY S/S TXN RXN. CALLED FOR STAT CBC PER DR RAI ORDER.
[2018-05-31 12:30] LABS: Absolute Lymphocyte Count 1.19 X10^3/ul (0.83-4.51); Basophil# 0.01 X10^3/uL; Basophil% 0.1 % (0-1); Hematocrit 27.7 % (37-47); Hemoglobin 9.4 g/dl (12.0-15.0); Lymphocyte # 1.19 X10^3/ul (4.0); Lymphocyte % 8.9 % (19-41); Mean Corp Hgb Conc 33.9 g/gl (32-36); Mean Corpuscular Hgb 29.8 pg (27.0-32.0); Mean Corpuscular Volume 87.9 fL (81-99); Mean Platelet Vol. 9.4 fl (6.2-12.0); Monocyte# 1.12 X10^3/uL; Monocyte% 8.4 % (0-10); Neutrophil # 11.02 X10^3/uL (2.7-7.7); Neutrophil % 82.4 % (47-70); POSITIVE COUNT NO; POSITIVE DIFFERENTIAL NO; POSITIVE MORPHOLOGY NO; Platelet Count 113 K/mm3 (150-450); RBC Distribution Width CV 14.7 % (11.6-14.6); RBC Distribution Width SD 46.5 fl (35.1-43.9); Red Blood Count 3.15 M/mm3 (4.2-5.4); White Blood Count 13.4 K/mm3 (4.4-11.0)
--- NOTE | 2018-05-31 12:50 | EKG12_ITS ---
Test Reason : POSTOP Blood Pressure : / mmHG Vent. Rate : 091 BPM Atrial Rate : 091 BPM P-R Int : 138 ms QRS Dur : 082 ms QT Int : 378 ms P-R-T Axes : 066 079 -14 degrees QTc Int : 464 ms Normal sinus rhythm T wave abnormality, consider inferior ischemia T wave abnormality, consider anterolateral ischemia Prolonged QT Confirmed by MELVIN ORTEGA, ROXI ([id number]), supervising editor trailer ANNA BOX ([id number] on 06/05/2018 4:11:28 PM Referred By: Yady Beltre Confirmed By:ROXI CHARLES MD
[2018-05-31] MEDS: Lactated Ringers 1,000 ML 150 ML IV ×2 (14:46→21:24)
[2018-05-31] MEDS: 0.9% NaCl Peripheral Flush Adult/Peds IV ×4 (15:07→20:20)
[2018-05-31] MEDS: Metoclopramide 10 MG/2 ML Vial IV (15:07)
[2018-05-31] MEDS: Ondansetron 4 MG/2 ML Vial IV (16:25)
[2018-05-31 17:22] LABS: Hematocrit 28.9 % (37-47); Hemoglobin 9.9 g/dl (12.0-15.0)
[2018-05-31] MEDS: Morphine 4 MG/ML Syringe IV ×2 (17:50→20:20)
--- NOTE | 2018-05-31 19:04 | PCM.PN.OB ---
Patient Problems: Active and Suspected Problems (Last Updated 05/29/18 @ 20:14 by Yady Beltre MD) Menorrhagia (Acute) Metrorrhagia (Acute) Leiomyoma (Acute) Anemia (Acute) Subjective: Awake and alert. Pain and nausea controlled. - Physical Exam General: No apparent distress, Well developed, Well nourished HEENT: PERRLA, EOMI, Normocephalic Oral: Moist Mucosa Neck: Supple Abdomen: Soft, Non-Distended, - - Incision bandage is dry Extremities: No Calf Tenderness Skin: No rashes Musculoskeletal: No Tenderness to Palpation of Joints or Extremities Psych/Mental Status: Normal Affect Vital Signs Temp Pulse Resp BP Pulse Ox 98.7 F 85 16 108/69 99 05/31/18 17:45 05/31/18 17:45 05/31/18 17:45 05/31/18 17:45 05/31/18 17:45 Oxygen Flow Rate (L/min) 2 Oxygen Delivery Method Room Air Weight: 154 lb 8 oz Body Mass Index (BMI) 24.2 Intake and Output for Last 24 Hours 05/29/18 05/30/18 05/31/18 23:59 23:59 23:59 Intake Total 1435 / 1435 2368 / 2368 7125 / 7125 Output Total 250 / 250 798 / 798 Balance 1435 / 1435 2118 / 2118 6327 / 6327 Laboratory Tests Past 24 Hrs 05/29/18 05/29/18 05/30/18 11:45 11:45 21:45 WBC RBC Hgb 7.3 L Hct 21.8 L MCV MCH MCHC RDW RDW Differential Plt Count MPV Immature Gran % (Auto) Neut % (Auto) Lymph % (Auto) [place] % (Auto) Eos % (Auto) Baso % (Auto) Absolute Neuts (auto) Absolute Lymphs (auto) Total Counted Sodium Potassium Chloride Carbon Dioxide Anion Gap BUN Creatinine Estim Creat Clear Calc Est GFR (MDRD) Af Amer Est GFR (MDRD) Non-Af BUN/Creatinine Ratio Glucose Calcium Magnesium Troponin I Crossmatch See Detail See Detail 05/31/18 05/31/18 05/31/18 01:10 09:52 09:52 WBC 14.1 H RBC 2.00 L Hgb 7.3 L 6.2 L Hct 22.0 L 18.4 L MCV 92.0 MCH 31.0 MCHC 33.7 RDW 13.9 RDW Differential 43.7 Plt Count 130 L MPV 9.5 Immature Gran % (Auto) 0.600 Neut % (Auto) 77.7 H Lymph % (Auto) 15.2 L [place] % (Auto) 6.3 Eos % (Auto) 0.1 Baso % (Auto) 0.1 Absolute Neuts (auto) 10.9 H Absolute Lymphs (auto) 2.14 Total Counted Not Reportable Sodium Potassium Chloride Carbon Dioxide Anion Gap BUN Creatinine Estim Creat Clear Calc Est GFR (MDRD) Af Amer Est GFR (MDRD) Non-Af BUN/Creatinine Ratio Glucose Calcium Magnesium Troponin I 0.018 Crossmatch 05/31/18 05/31/18 05/31/18 09:52 12:20 12:50 WBC 13.4 H RBC 3.15 L Hgb 9.4 L Hct 27.7 L MCV 87.9 MCH 29.8 MCHC 33.9 RDW 14.7 H RDW Differential 46.5 H Plt Count 113 L MPV 9.4 Immature Gran % (Auto) 0.200 Neut % (Auto) 82.4 H Lymph % (Auto) 8.9 L [place] % (Auto) 8.4 Eos % (Auto) 0.0 Baso % (Auto) 0.1 Absolute Neuts (auto) 11.0 H Absolute Lymphs (auto) 1.19 Total Counted Not Reportable Sodium 145 Potassium 3.7 Chloride 114 H Carbon Dioxide 24.0 Anion Gap 7 BUN 7 Creatinine 0.93 Estim Creat Clear Calc 77.41 Est GFR (MDRD) Af Amer 86 Est GFR (MDRD) Non-Af 71 BUN/Creatinine Ratio 7.5 L Glucose 149 H Calcium 6.7 L Magnesium 1.4 L Troponin I 0.018 Crossmatch 05/31/18 05/31/18 05/31/18 16:30 16:30 16:30 WBC RBC Hgb 9.9 L Hct 28.9 L MCV MCH MCHC RDW RDW Differential Plt Count MPV Immature Gran % (Auto) Neut % (Auto) Lymph % (Auto) [place] % (Auto) Eos % (Auto) Baso % (Auto) Absolute Neuts (auto) Absolute Lymphs (auto) Total Counted Sodium Potassium Chloride Carbon Dioxide Anion Gap BUN Creatinine Estim Creat Clear Calc Est GFR (MDRD) Af Amer Est GFR (MDRD) Non-Af BUN/Creatinine Ratio Glucose Calcium Magnesium 2.0 Troponin I 0.017 Crossmatch Medical Necessity - Tobacco Use Smoking Status: Never smoker Tobacco Use: Non-smoker Assessment/Plan All Active Problems (Last Updated 05/29/18 @ 20:14 by Yady Beltre MD) Menorrhagia (Acute) Metrorrhagia (Acute) Endometrial mass (Acute) Anemia (Acute) Menorrhagia (Acute) Metrorrhagia (Acute) Leiomyoma (Acute) Anemia (Acute) 1. Emergency KRISTOPHER, bilateral salpingectomy recent Hb/Hct stable no vaginal bleeding Ice chips and sips Pain tolerated no nausea no flatus good urine output 2. DVT recent heparin drip in am 3. Transfusion summary for this hospitalization PRBC x 8 units FFP x 1 4. EKG changes serial troponins monitoring
[2018-05-31] MEDS: proMETHazine 25 MG/ML Syringe 12.5 MG IV (20:19)
[2018-05-31 21:06] LABS: Hematocrit 27.3 % (37-47); Hemoglobin 9.3 g/dl (12.0-15.0)
[2018-05-31] MEDS: Famotidine 20 MG Tablet PO (21:33)
[2018-06-01] VITALS (12 sets, daily range): BP systolic 110–116; BP diastolic 60–78; PULSE 69–100; RESP 12–18; TEMP 36.7–37.3; O2SAT 93–99
[2018-06-01 00:28] LABS: Hematocrit 26.9 % (37-47); Hemoglobin 9.2 g/dl (12.0-15.0)
[2018-06-01] MEDS: Morphine 4 MG/ML Syringe IV ×5 (03:27→15:13)
[2018-06-01] MEDS: Ondansetron 4 MG/2 ML Vial IV (03:28)
[2018-06-01] MEDS: Lactated Ringers 1,000 ML 150 ML IV ×2 (03:30→08:50)
--- NOTE | 2018-06-01 05:55 | EKG12_ITS ---
Test Reason : AM EKG Blood Pressure : / mmHG Vent. Rate : 079 BPM Atrial Rate : 079 BPM P-R Int : 150 ms QRS Dur : 078 ms QT Int : 378 ms P-R-T Axes : 056 082 036 degrees QTc Int : 433 ms Normal sinus rhythm Normal ECG When compared with ECG of 31-MAY-2018 09:33, MANUAL COMPARISON REQUIRED, DATA IS UNCONFIRMED Confirmed by MELVIN ORTEGA, ROXI ([id number]), medical transcription editor ANNA BOX ([id number]) on 06/05/2018 4:04:28 PM Referred By: Yady Beltre Confirmed By:ROXI CHARLES MD
[2018-06-01] MEDS: 0.9% NaCl Peripheral Flush Adult/Peds IV ×2 (06:20→15:13)
[2018-06-01 06:48] LABS: Hematocrit 26.5 % (37-47); Hemoglobin 8.9 g/dl (12.0-15.0); Mean Corp Hgb Conc 33.6 g/gl (32-36); Mean Corpuscular Hgb 30.2 pg (27.0-32.0); Mean Corpuscular Volume 89.8 fL (81-99); Mean Platelet Vol. 9.7 fl (6.2-12.0); Platelet Count 152 K/mm3 (150-450); RBC Distribution Width CV 14.8 % (11.6-14.6); RBC Distribution Width SD 46.5 fl (35.1-43.9); Red Blood Count 2.95 M/mm3 (4.2-5.4); White Blood Count 10.8 K/mm3 (4.4-11.0)
[2018-06-01 06:49] LABS: Scan Indicated on CBC? Y/N NO
[2018-06-01 07:02] LABS: Anion Gap 5 (5-15); BUN 4 mg/dL (7-18); BUN/Creat Ratio 5.9 RATIO (10-20); Calcium,Total 7.2 mg/dL (8.5-10.1); Chloride 112 mmol/L (98-107); Creatinine, Serum 0.68 mg/dL (0.55-1.02); EST Glomerular Filtration Rate 101 mL/min (>60); Est Glom Filt Rate - Afr Amer 122 mL/min (>60); Estimated Creatinine Clearance 105.87 ml/min; Glucose 112 mg/dL (74-106); Potassium 4.1 mmol/L (3.5-5.1); Sodium Level 144 mmol/L (136-145)
[2018-06-01] MEDS: proMETHazine 25 MG/ML Syringe 12.5 MG IV (08:49)
--- NOTE | 2018-06-01 09:25 | PN.OBGYN_ITS ---
Patient Problems: Active and Suspected Problems (Last Updated 05/29/18 @ 20:14 by Yady Yoo MD) Menorrhagia (Acute) Metrorrhagia (Acute) Leiomyoma (Acute) Anemia (Acute) Subjective: Feels well. + flatus. Notes slight nausea with morphine administration. Dangle of feet only. No ambulation yet. No vaginal bleeding. - Physical Exam General: No apparent distress, Well developed, Well nourished HEENT: PERRLA, EOMI, Normocephalic Oral: Moist Mucosa Neck: Supple Lungs: Clear to auscultation, Normal air movement Cardiovascular: Regular rate, Regular Rhythm Abdomen: Bowel Sounds Present, Soft, Non-Distended, - - incision bandage is clear and dry. Extremities: No Calf Tenderness Skin: No rashes Musculoskeletal: No Tenderness to Palpation of Joints or Extremities Neurological: Cranial nerves II-XII grossly intact Psych/Mental Status: Normal Affect Vital Signs Temp Pulse Resp BP Pulse Ox 99.2 F H 74 18 110/78 93 06/01/18 03:30 06/01/18 07:42 06/01/18 03:30 06/01/18 03:30 06/01/18 07:20 Oxygen Flow Rate (L/min) 2 Oxygen Delivery Method Room Air Weight: 154 lb 8 oz Body Mass Index (BMI) 24.2 Intake and Output for Last 24 Hours 05/30/18 05/31/18 06/01/18 23:59 23:59 23:59 Intake Total 2368 / 2368 7125 / 7125 2296 / 2296 Output Total 250 / 250 798 / 798 2200 / 2200 Balance 2118 / 2118 6327 / 6327 96 / 96 Laboratory Tests Past 24 Hrs 05/29/18 05/31/18 05/31/18 11:45 09:52 09:52 WBC 14.1 H RBC 2.00 L Hgb 6.2 L Hct 18.4 L MCV 92.0 MCH 31.0 MCHC 33.7 RDW 13.9 RDW Differential 43.7 Plt Count 130 L MPV 9.5 Immature Gran % (Auto) 0.600 Neut % (Auto) 77.7 H Lymph % (Auto) 15.2 L [place] % (Auto) 6.3 Eos % (Auto) 0.1 Baso % (Auto) 0.1 Absolute Neuts (auto) 10.9 H Absolute Lymphs (auto) 2.14 Total Counted Not Reportable Sodium Potassium Chloride Carbon Dioxide Anion Gap BUN Creatinine Estim Creat Clear Calc Est GFR (MDRD) Af Amer Est GFR (MDRD) Non-Af BUN/Creatinine Ratio Glucose Calcium Magnesium Troponin I 0.018 Crossmatch See Detail 05/31/18 05/31/18 05/31/18 09:52 12:20 12:50 WBC 13.4 H RBC 3.15 L Hgb 9.4 L Hct 27.7 L MCV 87.9 MCH 29.8 MCHC 33.9 RDW 14.7 H RDW Differential 46.5 H Plt Count 113 L MPV 9.4 Immature Gran % (Auto) 0.200 Neut % (Auto) 82.4 H Lymph % (Auto) 8.9 L [place] % (Auto) 8.4 Eos % (Auto) 0.0 Baso % (Auto) 0.1 Absolute Neuts (auto) 11.0 H Absolute Lymphs (auto) 1.19 Total Counted Not Reportable Sodium 145 Potassium 3.7 Chloride 114 H Carbon Dioxide 24.0 Anion Gap 7 BUN 7 Creatinine 0.93 Estim Creat Clear Calc 77.41 Est GFR (MDRD) Af Amer 86 Est GFR (MDRD) Non-Af 71 BUN/Creatinine Ratio 7.5 L Glucose 149 H Calcium 6.7 L Magnesium 1.4 L Troponin I 0.018 Crossmatch 05/31/18 05/31/18 05/31/18 16:30 16:30 16:30 WBC RBC Hgb 9.9 L Hct 28.9 L MCV MCH MCHC RDW RDW Differential Plt Count MPV Immature Gran % (Auto) Neut % (Auto) Lymph % (Auto) [place] % (Auto) Eos % (Auto) Baso % (Auto) Absolute Neuts (auto) Absolute Lymphs (auto) Total Counted Sodium Potassium Chloride Carbon Dioxide Anion Gap BUN Creatinine Estim Creat Clear Calc Est GFR (MDRD) Af Amer Est GFR (MDRD) Non-Af BUN/Creatinine Ratio Glucose Calcium Magnesium 2.0 Troponin I 0.017 Crossmatch 05/31/18 06/01/18 06/01/18 20:32 00:16 05:15 WBC 10.8 RBC 2.95 L Hgb 9.3 L 9.2 L 8.9 L Hct 27.3 L 26.9 L 26.5 L MCV 89.8 MCH 30.2 MCHC 33.6 RDW 14.8 H RDW Differential 46.5 H Plt Count 152 MPV 9.7 Immature Gran % (Auto) Neut % (Auto) Lymph % (Auto) [place] % (Auto) Eos % (Auto) Baso % (Auto) Absolute Neuts (auto) Absolute Lymphs (auto) Total Counted Sodium Potassium Chloride Carbon Dioxide Anion Gap BUN Creatinine Estim Creat Clear Calc Est GFR (MDRD) Af Amer Est GFR (MDRD) Non-Af BUN/Creatinine Ratio Glucose Calcium Magnesium Troponin I Crossmatch 06/01/18 05:15 WBC RBC Hgb Hct MCV MCH MCHC RDW RDW Differential Plt Count MPV Immature Gran % (Auto) Neut % (Auto) Lymph % (Auto) [place] % (Auto) Eos % (Auto) Baso % (Auto) Absolute Neuts (auto) Absolute Lymphs (auto) Total Counted Sodium 144 Potassium 4.1 Chloride 112 H Carbon Dioxide 27.0 Anion Gap 5 BUN 4 L Creatinine 0.68 Estim Creat Clear Calc 105.87 Est GFR (MDRD) Af Amer 122 Est GFR (MDRD) Non-Af 101 BUN/Creatinine Ratio 5.9 L Glucose 112 H Calcium 7.2 L Magnesium Troponin I Crossmatch Medical Necessity - Tobacco Use Smoking Status: Never smoker Tobacco Use: Non-smoker Assessment/Plan All Active Problems (Last Updated 05/29/18 @ 20:14 by Yady Beltre MD) Menorrhagia (Acute) Metrorrhagia (Acute) Endometrial mass (Acute) Anemia (Acute) Menorrhagia (Acute) Metrorrhagia (Acute) Leiomyoma (Acute) Anemia (Acute) 1. Emergency KRISTOPHER, bilateral salpingectomy recent Hb/Hct stable no vaginal bleeding Ice chips and sips and now able to advance with flatus production Once able to ambulate and tolerate chair and room movement, discontinue jacobs catheter good urine output 2. DVT recent No bleeding and stable blood counts, return to [facility] with medicine service 3. Transfusion summary for this hospitalization PRBC x 8 units FFP x 1 4. EKG changes serial troponins monitoring s/p echo
[2018-06-01] MEDS: oxyCODONE 5 MG Tablet PO ×3 (10:19→14:19)
--- NOTE | 2018-06-01 11:08 | PCM.PROGNOTE ---
<Ashley Klein - Last Filed: 06/01/18 11:38> Patient Problems: Active and Suspected Problems (Last Updated 05/29/18 @ 20:14 by Yady Beltre MD) Menorrhagia (Acute) Metrorrhagia (Acute) Leiomyoma (Acute) Anemia (Acute) Subjective: Patient seen and examined. Notes minimal vaginal bleeding. Denies dizziness, lightheadedness. Denies chest pain. Has not yet been out of bed. Complains of sharp abdominal pain 03/31. - Physical Exam General: Alert, Oriented x3, Cooperative HEENT: Atraumatic, PERRLA, EOMI, Normocephalic Neck: Supple, No JVD, Negative Carotid Bruits Lungs: Clear to auscultation, Normal air movement Cardiovascular: Regular rate, Regular Rhythm, Normal S1, Normal S2, No murmurs Abdomen: Bowel Sounds Present, Soft, Non-Distended, Tender - Generalized Extremities: No clubbing, No cyanosis, Edema - non-pitting ankle Skin: No rashes, No breakdown, - - abdominal incision dressing C/D/I. Musculoskeletal: No Tenderness to Palpation of Joints or Extremities Neurological: Cranial nerves II-XII grossly intact, Neuro grossly intact Psych/Mental Status: Normal Affect, Appropriate Vital Signs Temp Pulse Resp BP Pulse Ox 98.1 F 77 16 116/69 99 06/01/18 09:30 06/01/18 09:30 06/01/18 09:30 06/01/18 09:30 06/01/18 09:30 Oxygen Flow Rate (L/min) 2 Oxygen Delivery Method Room Air Weight: 154 lb 8 oz Body Mass Index (BMI) 24.2 Intake and Output for Last 24 Hours 05/30/18 05/31/18 06/01/18 23:59 23:59 23:59 Intake Total 2368 / 2368 7125 / 7125 2296 / 2296 Output Total 250 / 250 798 / 798 2200 / 2200 Balance 2118 / 2118 6327 / 6327 96 / 96 Laboratory Tests Past 24 Hrs 05/29/18 05/31/18 05/31/18 11:45 12:20 12:50 WBC 13.4 H RBC 3.15 L Hgb 9.4 L Hct 27.7 L MCV 87.9 MCH 29.8 MCHC 33.9 RDW 14.7 H RDW Differential 46.5 H Plt Count 113 L MPV 9.4 Immature Gran % (Auto) 0.200 Neut % (Auto) 82.4 H Lymph % (Auto) 8.9 L [place] % (Auto) 8.4 Eos % (Auto) 0.0 Baso % (Auto) 0.1 Absolute Neuts (auto) 11.0 H Absolute Lymphs (auto) 1.19 Total Counted Not Reportable Sodium Potassium Chloride Carbon Dioxide Anion Gap BUN Creatinine Estim Creat Clear Calc Est GFR (MDRD) Af Amer Est GFR (MDRD) Non-Af BUN/Creatinine Ratio Glucose Calcium Magnesium Troponin I 0.018 Crossmatch See Detail 05/31/18 05/31/18 05/31/18 16:30 16:30 16:30 WBC RBC Hgb 9.9 L Hct 28.9 L MCV MCH MCHC RDW RDW Differential Plt Count MPV Immature Gran % (Auto) Neut % (Auto) Lymph % (Auto) [place] % (Auto) Eos % (Auto) Baso % (Auto) Absolute Neuts (auto) Absolute Lymphs (auto) Total Counted Sodium Potassium Chloride Carbon Dioxide Anion Gap BUN Creatinine Estim Creat Clear Calc Est GFR (MDRD) Af Amer Est GFR (MDRD) Non-Af BUN/Creatinine Ratio Glucose Calcium Magnesium 2.0 Troponin I 0.017 Crossmatch 05/31/18 06/01/18 06/01/18 20:32 00:16 05:15 WBC 10.8 RBC 2.95 L Hgb 9.3 L 9.2 L 8.9 L Hct 27.3 L 26.9 L 26.5 L MCV 89.8 MCH 30.2 MCHC 33.6 RDW 14.8 H RDW Differential 46.5 H Plt Count 152 MPV 9.7 Immature Gran % (Auto) Neut % (Auto) Lymph % (Auto) [place] % (Auto) Eos % (Auto) Baso % (Auto) Absolute Neuts (auto) Absolute Lymphs (auto) Total Counted Sodium Potassium Chloride Carbon Dioxide Anion Gap BUN Creatinine Estim Creat Clear Calc Est GFR (MDRD) Af Amer Est GFR (MDRD) Non-Af BUN/Creatinine Ratio Glucose Calcium Magnesium Troponin I Crossmatch 06/01/18 05:15 WBC RBC Hgb Hct MCV MCH MCHC RDW RDW Differential Plt Count MPV Immature Gran % (Auto) Neut % (Auto) Lymph % (Auto) [place] % (Auto) Eos % (Auto) Baso % (Auto) Absolute Neuts (auto) Absolute Lymphs (auto) Total Counted Sodium 144 Potassium 4.1 Chloride 112 H Carbon Dioxide 27.0 Anion Gap 5 BUN 4 L Creatinine 0.68 Estim Creat Clear Calc 105.87 Est GFR (MDRD) Af Amer 122 Est GFR (MDRD) Non-Af 101 BUN/Creatinine Ratio 5.9 L Glucose 112 H Calcium 7.2 L Magnesium Troponin I Crossmatch Medical Necessity - Tobacco Use Smoking Status: Never smoker Tobacco Use: Non-smoker Assessment/Plan All Active Problems (Last Updated 05/29/18 @ 20:14 by Yady Beltre MD) Menorrhagia (Acute) Metrorrhagia (Acute) Endometrial mass (Acute) Anemia (Acute) Menorrhagia (Acute) Metrorrhagia (Acute) Leiomyoma (Acute) Anemia (Acute) 1. Acute on chronic anemia secondary to acute on chronic menometrorrhagia secondary to uterine fibroids with underlying iron deficiency anemia-status post total hysterectomy, bilateral salpingectomy 05/31/[address] Mcdermott. Status post total of 8 units packed red blood cells and 1 unit FFP during admission. On cefotetan per PASTE PLANT SUPERVISOR. Continue PRN pain regimen. Advance diet as tolerated. DC arlene. 2. Recent diagnosis 03/29/2018 left lower extremity DVT-patient will require 1 additional month of anticoagulation to complete 3-month therapy. Ultrasound left lower extremity pending. Ok to reinitiate Xarelto per PA[employer] PL[employer] SUPERVISOR. Will begin first dose this morning and trend CBC. 3. Postoperative EKG changes-Troponin negative. Repeat EKG without ST-T changes. Echocardiogram with EF 65%, trivial tricuspid valve insufficiency, RVSP estimated to be 30 mmHg. DVT prophylaxis-Xarelto initiated. This patient was seen by SAUL Bradshaw under the supervision of Dr. Leo. <Leatha Leo - Last Filed: 06/01/18 17:05> - Physical Exam Vital Signs Temp Pulse Resp BP Pulse Ox 98.1 F 99 16 116/69 99 06/01/18 09:30 06/01/18 14:57 06/01/18 09:30 06/01/18 09:30 06/01/18 09:30 Oxygen Flow Rate (L/min) 2 Oxygen Delivery Method Room Air Weight: 70.08 kg Body Mass Index (BMI) 24.2 Intake and Output for Last 24 Hours 05/30/18 05/31/18 06/01/18 23:59 23:59 23:59 Intake Total 2368 / 2368 7125 / 7125 4671 / 4671 Output Total 250 / 250 798 / 798 3850 / 3850 Balance 2118 / 2118 6327 / 6327 821 / 821 Laboratory Tests Past 24 Hrs 05/31/18 05/31/18 05/31/18 16:30 16:30 16:30 WBC RBC Hgb 9.9 L Hct 28.9 L MCV MCH MCHC RDW RDW Differential Plt Count MPV Sodium Potassium Chloride Carbon Dioxide Anion Gap BUN Creatinine Estim Creat Clear Calc Est GFR (MDRD) Af Amer Est GFR (MDRD) Non-Af BUN/Creatinine Ratio Glucose Calcium Magnesium 2.0 Troponin I 0.017 05/31/18 06/01/18 06/01/18 20:32 00:16 05:15 WBC 10.8 RBC 2.95 L Hgb 9.3 L 9.2 L 8.9 L Hct 27.3 L 26.9 L 26.5 L MCV 89.8 MCH 30.2 MCHC 33.6 RDW 14.8 H RDW Differential 46.5 H Plt Count 152 MPV 9.7 Sodium Potassium Chloride Carbon Dioxide Anion Gap BUN Creatinine Estim Creat Clear Calc Est GFR (MDRD) Af Amer Est GFR (MDRD) Non-Af BUN/Creatinine Ratio Glucose Calcium Magnesium Troponin I 06/01/18 05:15 WBC RBC Hgb Hct MCV MCH MCHC RDW RDW Differential Plt Count MPV Sodium 144 Potassium 4.1 Chloride 112 H Carbon Dioxide 27.0 Anion Gap 5 BUN 4 L Creatinine 0.68 Estim Creat Clear Calc 105.87 Est GFR (MDRD) Af Amer 122 Est GFR (MDRD) Non-Af 101 BUN/Creatinine Ratio 5.9 L Glucose 112 H Calcium 7.2 L Magnesium Troponin I Assessment/Plan This patient was seen in conjunction with Ashley Klein NP. I have independently interviewed and examined the patient and reviewed pertinent historical, laboratory, and other data. Please refer to her note for patient's presentation, findings, and recommendations. 43-year-old female with past medical history of iron deficiency anemia secondary to menometrorrhagia secondary to uterine fibroids, history of left lower extremity DVT, on Xarelto. She was admitted with vaginal bleeding to the [employer] service. She is POD #1, status post emergent KRISTOPHER with bilateral salpingectomy. Patient denies any active complaints except for some pain in her lower abdomen. Has Alcaraz catheter in situ. Chills or shortness of breath. Vitals were reviewed -stable Labs reviewed -hemoglobin remained stable at 8.9, WBC count improved from 13.4 to10.8; rest of labs are unremarkable. Physical Exam: Gen: Pale, not jaundiced, alert oriented x3, well hydrated CVS:HS I +II, regular, no murmurs RESP: Clinically clear to auscultation GI: Bowel Sounds present and normal, slight tenderness at the lower abdomen, no palpable organs, EXT:No edema ASSESSMENT: 1. Acute on chronic anemia secondary to iron deficiency anemia with acute blood loss, status post 8 packed RBC transfusion, will continue to trend hemoglobin, resume home multivitamin, add folic acid, 2. History of left lower extremity DVT, was off Xarelto momentarily with bridging, resuming Xarelto today 3. Postop day #1 status post emergent KRISTOPHER with bilateral salpingectomy for menometrorrhagia secondary to uterine fibroids Meds reviewed Plan: We will follow-up per gynecology recommendations, Ok to resume Xarelto today DC Alcaraz Continue pain control Encourage ambulation Discussed above diet to the intake of iron-containing foods to help build her hemoglobin Code Visit Inpatient E&M: 31369 Subs Hosp L2
--- NOTE | 2018-06-01 11:15 | CASEMGMT ---
RN CM Assessment Intro role of CM to patient, her and parents in room. Discussed DC Planning. Pt was previously independent, working. Will have family available on dc to assist with care needs and transportation on dc. -Was on Xarelto prior to admission for recent DVT. Per pt, plan is to have her resume on Xarelto on dc. No difficulties with cost of this prescription. PCP: Dr. Velasco Specialists: Dr. Jen Mcdermott Pharmacy: [facility] Prescription coverage: yes Living Arrangements: with , children Transportation: drives, but family will assist on dc. DME: none Social Work Consult: NO DC PLAN: Home on discharge, no needs identified.
--- NOTE | 2018-06-01 11:37 | PN_ITS ---
<Ashley Klein - Last Filed: 06/01/18 11:38> Patient Problems: Active and Suspected Problems (Last Updated 05/29/18 @ 20:14 by Yady Beltre MD) Menorrhagia (Acute) Metrorrhagia (Acute) Leiomyoma (Acute) Anemia (Acute) Subjective: Patient seen and examined. Notes minimal vaginal bleeding. Denies dizziness, lightheadedness. Denies chest pain. Has not yet been out of bed. Complains of sharp abdominal pain 03/31. - Physical Exam General: Alert, Oriented x3, Cooperative HEENT: Atraumatic, PERRLA, EOMI, Normocephalic Neck: Supple, No JVD, Negative Carotid Bruits Lungs: Clear to auscultation, Normal air movement Cardiovascular: Regular rate, Regular Rhythm, Normal S1, Normal S2, No murmurs Abdomen: Bowel Sounds Present, Soft, Non-Distended, Tender - Generalized Extremities: No clubbing, No cyanosis, Edema - non-pitting ankle Skin: No rashes, No breakdown, - - abdominal incision dressing C/D/I. Musculoskeletal: No Tenderness to Palpation of Joints or Extremities Neurological: Cranial nerves II-XII grossly intact, Neuro grossly intact Psych/Mental Status: Normal Affect, Appropriate Vital Signs Temp Pulse Resp BP Pulse Ox 98.1 F 77 16 116/69 99 06/01/18 09:30 06/01/18 09:30 06/01/18 09:30 06/01/18 09:30 06/01/18 09:30 Oxygen Flow Rate (L/min) 2 Oxygen Delivery Method Room Air Weight: 154 lb 8 oz Body Mass Index (BMI) 24.2 Intake and Output for Last 24 Hours 05/30/18 05/31/18 06/01/18 23:59 23:59 23:59 Intake Total 2368 / 2368 7125 / 7125 2296 / 2296 Output Total 250 / 250 798 / 798 2200 / 2200 Balance 2118 / 2118 6327 / 6327 96 / 96 Laboratory Tests Past 24 Hrs 05/29/18 05/31/18 05/31/18 11:45 12:20 12:50 WBC 13.4 H RBC 3.15 L Hgb 9.4 L Hct 27.7 L MCV 87.9 MCH 29.8 MCHC 33.9 RDW 14.7 H RDW Differential 46.5 H Plt Count 113 L MPV 9.4 Immature Gran % (Auto) 0.200 Neut % (Auto) 82.4 H Lymph % (Auto) 8.9 L [place] % (Auto) 8.4 Eos % (Auto) 0.0 Baso % (Auto) 0.1 Absolute Neuts (auto) 11.0 H Absolute Lymphs (auto) 1.19 Total Counted Not Reportable Sodium Potassium Chloride Carbon Dioxide Anion Gap BUN Creatinine Estim Creat Clear Calc Est GFR (MDRD) Af Amer Est GFR (MDRD) Non-Af BUN/Creatinine Ratio Glucose Calcium Magnesium Troponin I 0.018 Crossmatch See Detail 05/31/18 05/31/18 05/31/18 16:30 16:30 16:30 WBC RBC Hgb 9.9 L Hct 28.9 L MCV MCH MCHC RDW RDW Differential Plt Count MPV Immature Gran % (Auto) Neut % (Auto) Lymph % (Auto) [place] % (Auto) Eos % (Auto) Baso % (Auto) Absolute Neuts (auto) Absolute Lymphs (auto) Total Counted Sodium Potassium Chloride Carbon Dioxide Anion Gap BUN Creatinine Estim Creat Clear Calc Est GFR (MDRD) Af Amer Est GFR (MDRD) Non-Af BUN/Creatinine Ratio Glucose Calcium Magnesium 2.0 Troponin I 0.017 Crossmatch 05/31/18 06/01/18 06/01/18 20:32 00:16 05:15 WBC 10.8 RBC 2.95 L Hgb 9.3 L 9.2 L 8.9 L Hct 27.3 L 26.9 L 26.5 L MCV 89.8 MCH 30.2 MCHC 33.6 RDW 14.8 H RDW Differential 46.5 H Plt Count 152 MPV 9.7 Immature Gran % (Auto) Neut % (Auto) Lymph % (Auto) [place] % (Auto) Eos % (Auto) Baso % (Auto) Absolute Neuts (auto) Absolute Lymphs (auto) Total Counted Sodium Potassium Chloride Carbon Dioxide Anion Gap BUN Creatinine Estim Creat Clear Calc Est GFR (MDRD) Af Amer Est GFR (MDRD) Non-Af BUN/Creatinine Ratio Glucose Calcium Magnesium Troponin I Crossmatch 06/01/18 05:15 WBC RBC Hgb Hct MCV MCH MCHC RDW RDW Differential Plt Count MPV Immature Gran % (Auto) Neut % (Auto) Lymph % (Auto) [place] % (Auto) Eos % (Auto) Baso % (Auto) Absolute Neuts (auto) Absolute Lymphs (auto) Total Counted Sodium 144 Potassium 4.1 Chloride 112 H Carbon Dioxide 27.0 Anion Gap 5 BUN 4 L Creatinine 0.68 Estim Creat Clear Calc 105.87 Est GFR (MDRD) Af Amer 122 Est GFR (MDRD) Non-Af 101 BUN/Creatinine Ratio 5.9 L Glucose 112 H Calcium 7.2 L Magnesium Troponin I Crossmatch Medical Necessity - Tobacco Use Smoking Status: Never smoker Tobacco Use: Non-smoker Assessment/Plan All Active Problems (Last Updated 05/29/18 @ 20:14 by Yady Beltre MD) Menorrhagia (Acute) Metrorrhagia (Acute) Endometrial mass (Acute) Anemia (Acute) Menorrhagia (Acute) Metrorrhagia (Acute) Leiomyoma (Acute) Anemia (Acute) 1. Acute on chronic anemia secondary to acute on chronic menometrorrhagia secondary to uterine fibroids with underlying iron deficiency anemia-status post total hysterectomy, bilateral salpingectomy 05/31/[address] Mcdermott. Status post total of 8 units packed red blood cells and 1 unit FFP during admission. On cefotetan per ANESTHESIOLOGIST AND CRITICAL CARE. Continue PRN pain regimen. Advance diet as tolerated. LATRELL jacobs. 2. Recent diagnosis 03/29/2018 left lower extremity DVT-patient will require 1 additional month of anticoagulation to complete 3-month therapy. Ultrasound left lower extremity pending. Ok to reinitiate Xarelto per ANESTHESIOLOGIST AND CRITICAL CARE. Will begin first dose this morning and trend CBC. 3. Postoperative EKG changes-Troponin negative. Repeat EKG without ST-T changes. Echocardiogram with EF 65%, trivial tricuspid valve insufficiency, RVSP est imated to be 30 mmHg. DVT prophylaxis-Xarelto initiated. This patient was seen by SAUL Bradshaw under the supervision of Dr. Leo. <Leatha Leo - Last Filed: 06/01/18 17:05> - Physical Exam Vital Signs Temp Pulse Resp BP Pulse Ox 98.1 F 99 16 116/69 99 06/01/18 09:30 06/01/18 14:57 06/01/18 09:30 06/01/18 09:30 06/01/18 09:30 Oxygen Flow Rate (L/min) 2 Oxygen Delivery Method Room Air Weight: 70.08 kg Body Mass Index (BMI) 24.2 Intake and Output for Last 24 Hours 05/30/18 05/31/18 06/01/18 23:59 23:59 23:59 Intake Total 2368 / 2368 7125 / 7125 4671 / 4671 Output Total 250 / 250 798 / 798 3850 / 3850 Balance 2118 / 2118 6327 / 6327 821 / 821 Laboratory Tests Past 24 Hrs 05/31/18 05/31/18 05/31/18 16:30 16:30 16:30 WBC RBC Hgb 9.9 L Hct 28.9 L MCV MCH MCHC RDW RDW Differential Plt Count MPV Sodium Potassium Chloride Carbon Dioxide Anion Gap BUN Creatinine Estim Creat Clear Calc Est GFR (MDRD) Af Amer Est GFR (MDRD) Non-Af BUN/Creatinine Ratio Glucose Calcium Magnesium 2.0 Troponin I 0.017 05/31/18 06/01/18 06/01/18 20:32 00:16 05:15 WBC 10.8 RBC 2.95 L Hgb 9.3 L 9.2 L 8.9 L Hct 27.3 L 26.9 L 26.5 L MCV 89.8 MCH 30.2 MCHC 33.6 RDW 14.8 H RDW Differential 46.5 H Plt Count 152 MPV 9.7 Sodium Potassium Chloride Carbon Dioxide Anion Gap BUN Creatinine Estim Creat Clear Calc Est GFR (MDRD) Af Amer Est GFR (MDRD) Non-Af BUN/Creatinine Ratio Glucose Calcium Magnesium Troponin I 06/01/18 05:15 WBC RBC Hgb Hct MCV MCH MCHC RDW RDW Differential Plt Count MPV Sodium 144 Potassium 4.1 Chloride 112 H Carbon Dioxide 27.0 Anion Gap 5 BUN 4 L Creatinine 0.68 Estim Creat Clear Calc 105.87 Est GFR (MDRD) Af Amer 122 Est GFR (MDRD) Non-Af 101 BUN/Creatinine Ratio 5.9 L Glucose 112 H Calcium 7.2 L Magnesium Troponin I Assessment/Plan This patient was seen in conjunction with Ashley Klein NP. I have independently interviewed and examined the patient and reviewed pertinent historical, laboratory, and other data. Please refer to her note for patient's presentation, findings, and recommendations. 43-year-old female with past medical history of iron deficiency anemia secondary to menometrorrhagia secondary to uterine fibroids, history of left lower extremity DVT, on Xarelto. She was admitted with vaginal bleeding to the [employer] service. She is POD #1, status post emergent KRISTOPHER with bilateral salpingectomy. Patient denies any active complaints except for some pain in her lower abdomen. Has Jacobs catheter in situ. Chills or shortness of breath. Vitals were reviewed -stable Labs reviewed -hemoglobin remained stable at 8.9, WBC count improved from 13.4 to10.8; rest of labs are unremarkable. Physical Exam: Gen: Pale, not jaundiced, alert oriented x3, well hydrated CVS:HS I +II, regular, no murmurs RESP: Clinically clear to auscultation GI: Bowel Sounds present and normal, slight tenderness at the lower abdomen, no palpable organs, EXT:No edema ASSESSMENT: 1. Acute on chronic anemia secondary to iron deficiency anemia with acute blood loss, status post 8 packed RBC transfusion, will continue to trend hemoglobin, resume home multivitamin, add folic acid, 2. History of left lower extremity DVT, was off Xarelto momentarily with bridging, resuming Xarelto today 3. Postop day #1 status post emergent KRISTOPHER with bilateral salpingectomy for menometrorrhagia secondary to uterine fibroids Meds reviewed Plan: We will follow-up per gynecology recommendations, Ok to resume Xarelto today DC Jacobs Continue pain control Encourage ambulation Discussed above diet to the intake of iron-containing foods to help build her hemoglobin Code Visit Inpatient E&M: 95250 Subs Hosp L2
[2018-06-01] MEDS: Phenazopyridine 95 MG Tablet 190 MG PO ×2 (13:29→21:27)
[2018-06-01] MEDS: Rivaroxaban 20 MG Tablet PO (13:29)
[2018-06-01] MEDS: Famotidine 20 MG Tablet PO ×2 (13:29→21:28)
[2018-06-01] MEDS: Docusate Sodium 100 MG Capsule 200 MG PO ×2 (13:30→16:38)
[2018-06-01] MEDS: Acetaminophen 500 MG Tablet 1000 MG PO (16:38)
[2018-06-01] MEDS: Glycerin 1 Suppository 1 SUPP RECTAL (21:27)
[2018-06-02] VITALS (13 sets, daily range): BP systolic 97–112; BP diastolic 49–68; PULSE 67–92; RESP 16–23; TEMP 36.8–37.4; O2SAT 94–100
[2018-06-02] MEDS: Acetaminophen 500 MG Tablet 1000 MG PO ×2 (00:52→14:20)
[2018-06-02] MEDS: 0.9% NaCl Peripheral Flush Adult/Peds IV ×2 (00:53→08:30)
[2018-06-02] MEDS: Morphine 4 MG/ML Syringe IV (02:10)
[2018-06-02] MEDS: Rivaroxaban 20 MG Tablet PO (05:44)
[2018-06-02] MEDS: Phenazopyridine 95 MG Tablet 190 MG PO (05:44)
[2018-06-02 07:26] LABS: Absolute Lymphocyte Count 1.77 X10^3/ul (0.83-4.51); Absolute Neutrophil Count 6.2 X10^3/uL (2.0-7.7); Basophil# 0.01 X10^3/uL; Basophil% 0.1 % (0-1); Eosinophil# 0.24 X10^3/uL; Eosinophils% 2.6 % (0-5); Hematocrit 26.4 % (37-47); Hemoglobin 8.7 g/dl (12.0-15.0); Lymphocyte # 1.77 X10^3/ul (4.0); Lymphocyte % 19.3 % (19-41); Mean Corpuscular Hgb 30.1 pg (27.0-32.0); Mean Corpuscular Volume 91.3 fL (81-99); Mean Platelet Vol. 9.8 fl (6.2-12.0); Monocyte% 9.8 % (0-10); Neutrophil # 6.23 X10^3/uL (2.7-7.7); Platelet Count 197 K/mm3 (150-450); RBC Distribution Width CV 15.2 % (11.6-14.6); RBC Distribution Width SD 47.7 fl (35.1-43.9); Red Blood Count 2.89 M/mm3 (4.2-5.4); White Blood Count 9.2 K/mm3 (4.4-11.0)
[2018-06-02 07:27] LABS: POSITIVE COUNT NO; POSITIVE DIFFERENTIAL NO; POSITIVE MORPHOLOGY NO
--- NOTE | 2018-06-02 09:55 | PCM.PN.OB ---
Patient Problems: Active and Suspected Problems (Last Updated 05/29/18 @ 20:14 by Yady Beltre MD) Menorrhagia (Acute) Metrorrhagia (Acute) Leiomyoma (Acute) Anemia (Acute) Subjective: + flatus and bowel movement. Less nausea. Last narcotic 0200. Ambulating. Planning shower. - Physical Exam General: No apparent distress, Well developed, Well nourished HEENT: PERRLA, EOMI, Normocephalic Oral: Moist Mucosa Neck: Supple Lungs: Clear to auscultation, Normal air movement, No wheeze, No rales Cardiovascular: Regular rate, Regular Rhythm Abdomen: Bowel Sounds Present, Soft, Non-Distended, - - incision bandage is dry and plan for removal in shower today Extremities: No edema, No Calf Tenderness Skin: No rashes Musculoskeletal: No Tenderness to Palpation of Joints or Extremities Neurological: Cranial nerves II-XII grossly intact Psych/Mental Status: Normal Affect Vital Signs Temp Pulse Resp BP Pulse Ox 98.2 F 76 16 97/68 99 06/02/18 08:05 06/02/18 08:05 06/02/18 08:05 06/02/18 08:05 06/02/18 08:05 Oxygen Flow Rate (L/min) 2 Oxygen Delivery Method Room Air Weight: 154 lb 8 oz Body Mass Index (BMI) 24.2 Intake and Output for Last 24 Hours 05/31/18 06/01/18 06/02/18 23:59 23:59 23:59 Intake Total 7125 / 7125 7588 / 7588 140 / 140 Output Total 798 / 798 6585 / 6585 380 / 380 Balance 6327 / 6327 1003 / 1003 -240 / -240 Laboratory Tests Past 24 Hrs 06/02/18 05:55 WBC 9.2 RBC 2.89 L Hgb 8.7 L Hct 26.4 L MCV 91.3 MCH 30.1 MCHC 33.0 RDW 15.2 H RDW Differential 47.7 H Plt Count 197 MPV 9.8 Immature Gran % (Auto) 0.200 Neut % (Auto) 68.0 Lymph % (Auto) 19.3 [place] % (Auto) 9.8 Eos % (Auto) 2.6 Baso % (Auto) 0.1 Absolute Neuts (auto) 6.2 Absolute Lymphs (auto) 1.77 Total Counted Not Reportable Medical Necessity - Tobacco Use Smoking Status: Never smoker Tobacco Use: Non-smoker Assessment/Plan All Active Problems (Last Updated 05/29/18 @ 20:14 by Yady Beltre MD) Menorrhagia (Acute) Metrorrhagia (Acute) Endometrial mass (Acute) Anemia (Acute) Menorrhagia (Acute) Metrorrhagia (Acute) Leiomyoma (Acute) Anemia (Acute) 1. Emergency KRISTOPHER, bilateral salpingectomy - POD #2 Hb/Hct stable with Xarelto restart minimal vaginal bleeding- consistent to post-hysterectomy Regular diet and opting for low residue - protein addition is recommended voiding well. +flatus pain is well controlled discontinue IV and IV therapies continue to monitor today with anticipated discharge to home tomorrow 2. DVT recent Xarelto restart 3. Transfusion summary for this hospitalization PRBC x 8 units FFP x 1 4. EKG changes serial troponins monitoring s/p echo appreciate input of Medicine service
[2018-06-02] MEDS: Famotidine 20 MG Tablet PO ×2 (10:05→22:13)
[2018-06-02] MEDS: Multivitamins,Therapeutic Tablet 1 TABLET PO (10:06)
[2018-06-02] MEDS: Docusate Sodium 100 MG Capsule 200 MG PO ×2 (10:06→17:31)
[2018-06-02] MEDS: Folic Acid 1 MG Tablet 2 MG PO (10:06)
[2018-06-02] MEDS: HYDROcodone Bitartrate/Apap 5/325 Tablet PO ×3 (10:06→20:33)
--- NOTE | 2018-06-02 12:10 | PCM.PROGNOTE ---
<Ashley Klein - Last Filed: 06/02/18 12:20> Patient Problems: Active and Suspected Problems (Last Updated 05/29/18 @ 20:14 by Yady Beltre MD) Menorrhagia (Acute) Metrorrhagia (Acute) Leiomyoma (Acute) Anemia (Acute) Subjective: No acute events overnight. Patient resting comfortably in chair. Notes abdominal pain is 3 out of 10 with rest and 7 out of 10 with ambulation/movement. Denies further vaginal bleeding. Denies dizziness, lightheadedness. Notes rash/itching following OxyIR administration last evening. No further events since that time. - Physical Exam General: Alert, Oriented x3, Cooperative, No apparent distress HEENT: Atraumatic, PERRLA, EOMI, Normocephalic Neck: Supple, No JVD, Negative Carotid Bruits Lungs: Clear to auscultation, Normal air movement Cardiovascular: Regular rate, Regular Rhythm, Normal S1, Normal S2, No murmurs Abdomen: Bowel Sounds Present, Soft, Non-Distended, Tender - Generalized, - - Abdominal incision without redness or drainage Extremities: No clubbing, No cyanosis, No edema, Capillary Refill Less than 3 Seconds Skin: No rashes, No breakdown Musculoskeletal: No Tenderness to Palpation of Joints or Extremities Neurological: Cranial nerves II-XII grossly intact, Neuro grossly intact Psych/Mental Status: Normal Affect, Appropriate Vital Signs Temp Pulse Resp BP Pulse Ox 98.2 F 84 16 97/68 99 06/02/18 08:05 06/02/18 11:02 06/02/18 08:05 06/02/18 08:05 06/02/18 08:05 Oxygen Flow Rate (L/min) 2 Oxygen Delivery Method Room Air Weight: 154 lb 8 oz Body Mass Index (BMI) 24.2 Intake and Output for Last 24 Hours 05/31/18 06/01/18 06/02/18 23:59 23:59 23:59 Intake Total 7125 / 7125 7588 / 7588 620 / 620 Output Total 798 / 798 6585 / 6585 1730 / 1730 Balance 6327 / 6327 1003 / 1003 -1110 / -1110 Laboratory Tests Past 24 Hrs 06/02/18 05:55 WBC 9.2 RBC 2.89 L Hgb 8.7 L Hct 26.4 L MCV 91.3 MCH 30.1 MCHC 33.0 RDW 15.2 H RDW Differential 47.7 H Plt Count 197 MPV 9.8 Immature Gran % (Auto) 0.200 Neut % (Auto) 68.0 Lymph % (Auto) 19.3 [place] % (Auto) 9.8 Eos % (Auto) 2.6 Baso % (Auto) 0.1 Absolute Neuts (auto) 6.2 Absolute Lymphs (auto) 1.77 Total Counted Not Reportable Medical Necessity - Tobacco Use Smoking Status: Never smoker Tobacco Use: Non-smoker Assessment/Plan All Active Problems (Last Updated 05/29/18 @ 20:14 by Yady Beltre MD) Menorrhagia (Acute) Metrorrhagia (Acute) Endometrial mass (Acute) Anemia (Acute) Menorrhagia (Acute) Metrorrhagia (Acute) Leiomyoma (Acute) Anemia (Acute) 1. Acute on chronic anemia secondary to acute on chronic menometrorrhagia secondary to uterine fibroids with underlying iron deficiency anemia-status post total hysterectomy, bilateral salpingectomy 05/31/[address] Mcdermott. Status post total of 8 units packed red blood cells and 1 unit FFP during admission. Cefotetan discontinued per FUR DRUMMER. Continue PRN pain regimen. Switched from OxyIR to [place]. Tolerating diet. Passing flatus. Anticipate discharge home tomorrow. 2. Recent diagnosis 03/29/2018 left lower extremity DVT-patient will require 1 additional month of anticoagulation to complete 3-month therapy. Ultrasound left lower extremity completed, report pending. Ok to reinitiate Xarelto per FUR DRUMMER. Xarelto started 06/01/2018. Outpatient follow-up with Dr. Landis/ Dr. High. Patient following with ONC/HEM previously for hypercoagulable workup. Patient to have repeat lab work done following completion of Xarelto regimen. 3. Postoperative EKG changes-Troponin negative. Repeat EKG without ST-T changes. Echocardiogram with EF 65%, trivial tricuspid valve insufficiency, RVSP estimated to be 30 mmHg. DVT prophylaxis-Xarelto. Discharge planning: Anticipate discharge 06/03/2018 per FUR DRUMMER. This patient was seen by SAUL Bradshaw under the supervision of Dr. Leo. <Leatha Leo - Last Filed: 06/02/18 15:10> - Physical Exam Vital Signs Temp Pulse Resp BP Pulse Ox 98.4 F 85 16 109/67 98 06/02/18 14:05 06/02/18 14:05 06/02/18 14:05 06/02/18 14:05 06/02/18 14:05 Oxygen Flow Rate (L/min) 2 Oxygen Delivery Method Room Air Weight: 70.08 kg Body Mass Index (BMI) 24.2 Intake and Output for Last 24 Hours 05/31/18 06/01/18 06/02/18 23:59 23:59 23:59 Intake Total 7125 / 7125 7588 / 7588 620 / 620 Output Total 798 / 798 6585 / 6585 1730 / 1730 Balance 6327 / 6327 1003 / 1003 -1110 / -1110 Laboratory Tests Past 24 Hrs 06/02/18 05:55 WBC 9.2 RBC 2.89 L Hgb 8.7 L Hct 26.4 L MCV 91.3 MCH 30.1 MCHC 33.0 RDW 15.2 H RDW Differential 47.7 H Plt Count 197 MPV 9.8 Immature Gran % (Auto) 0.200 Neut % (Auto) 68.0 Lymph % (Auto) 19.3 [place] % (Auto) 9.8 Eos % (Auto) 2.6 Baso % (Auto) 0.1 Absolute Neuts (auto) 6.2 Absolute Lymphs (auto) 1.77 Total Counted Not Reportable Assessment/Plan This patient was seen in conjunction with Ashley Klein NP. I have independently interviewed and examined the patient and reviewed pertinent historical, laboratory, and other data. Please refer to her note for patient's presentation, findings, and recommendations. 43-year-old female with past medical history of iron deficiency anemia secondary to menometrorrhagia secondary to uterine fibroids, history of left lower extremity DVT, on Xarelto. She was admitted with vaginal bleeding to the SENIOR CLINICAL DATA ANALYST service. She is POD #2, status post emergent KRISTOPHER with bilateral salpingectomy. Patient denies any active complaints except for some pain in her lower abdomen. Ambulating well. No worsening vaginal bleeding Review of systems is negative Vitals were reviewed -stable Labs reviewed -hemoglobin remained stable at 8.7, WBC count is 9.2 Physical Exam: Gen: Pale, not jaundiced, alert oriented x3, well hydrated CVS:HS I +II, regular, no murmurs RESP: Clinically clear to auscultation GI: Bowel Sounds present and normal, slight tenderness at the lower abdomen, no palpable organs, EXT:No edema ASSESSMENT: 1. Acute on chronic anemia secondary to iron deficiency anemia with acute blood loss, status post 8 packed RBC transfusion, stable hemoglobin, patient is intolerant to oral iron, on folic acid and multivitamins, will receive IV iron in the outpatient 2. History of left lower extremity DVT, on Xarelto 3. POD#2 status post emergent KRISTOPHER with bilateral salpingectomy for menometrorrhagia secondary to uterine fibroids Meds reviewed Plan: We will follow-up per gynecology recommendations, Encourage ambulation, continue with pain control Code Visit Inpatient E&M: 31207 Subs Hosp L2
--- NOTE | 2018-06-02 12:19 | PN_ITS ---
<Ashley Klein - Last Filed: 06/02/18 12:20> Patient Problems: Active and Suspected Problems (Last Updated 05/29/18 @ 20:14 by Yady Beltre MD) Menorrhagia (Acute) Metrorrhagia (Acute) Leiomyoma (Acute) Anemia (Acute) Subjective: No acute events overnight. Patient resting comfortably in chair. Notes abdo bhargavi pain is 3 out of 10 with rest and 7 out of 10 with ambulation/movement. Denies further vaginal bleeding. Denies dizziness, lightheadedness. Notes rash/itching following OxyIR administration last evening. No further events since that time. - Physical Exam General: Alert, Oriented x3, Cooperative, No apparent distress HEENT: Atraumatic, PERRLA, EOMI, Normocephalic Neck: Supple, No JVD, Negative Carotid Bruits Lungs: Clear to auscultation, Normal air movement Cardiovascular: Regular rate, Regular Rhythm, Normal S1, Normal S2, No murmurs Abdomen: Bowel Sounds Present, Soft, Non-Distended, Tender - Generalized, - - Abdominal incision without redness or drainage Extremities: No clubbing, No cyanosis, No edema, Capillary Refill Less than 3 Seconds Skin: No rashes, No breakdown Musculoskeletal: No Tenderness to Palpation of Joints or Extremities Neurological: Cranial nerves II-XII grossly intact, Neuro grossly intact Psych/Mental Status: Normal Affect, Appropriate Vital Signs Temp Pulse Resp BP Pulse Ox 98.2 F 84 16 97/68 99 06/02/18 08:05 06/02/18 11:02 06/02/18 08:05 06/02/18 08:05 06/02/18 08:05 Oxygen Flow Rate (L/min) 2 Oxygen Delivery Method Room Air Weight: 154 lb 8 oz Body Mass Index (BMI) 24.2 Intake and Output for Last 24 Hours 05/31/18 06/01/18 06/02/18 23:59 23:59 23:59 Intake Total 7125 / 7125 7588 / 7588 620 / 620 Output Total 798 / 798 6585 / 6585 1730 / 1730 Balance 6327 / 6327 1003 / 1003 -1110 / -1110 Laboratory Tests Past 24 Hrs 06/02/18 05:55 WBC 9.2 RBC 2.89 L Hgb 8.7 L Hct 26.4 L MCV 91.3 MCH 30.1 MCHC 33.0 RDW 15.2 H RDW Differential 47.7 H Plt Count 197 MPV 9.8 Immature Gran % (Auto) 0.200 Neut % (Auto) 68.0 Lymph % (Auto) 19.3 [place] % (Auto) 9.8 Eos % (Auto) 2.6 Baso % (Auto) 0.1 Absolute Neuts (auto) 6.2 Absolute Lymphs (auto) 1.77 Total Counted Not Reportable Medical Necessity - Tobacco Use Smoking Status: Never smoker Tobacco Use: Non-smoker Assessment/Plan All Active Problems (Last Updated 05/29/18 @ 20:14 by Yady Beltre MD) Menorrhagia (Acute) Metrorrhagia (Acute) Endometrial mass (Acute) Anemia (Acute) Menorrhagia (Acute) Metrorrhagia (Acute) Leiomyoma (Acute) Anemia (Acute) 1. Acute on chronic anemia secondary to acute on chronic menometrorrhagia secondary to uterine fibroids with underlying iron deficiency anemia-status post total hysterectomy, bilateral salpingectomy 05/31/[address] Mcdermott. Status post total of 8 units packed red blood cells and 1 unit FFP during admission. Cefotetan discontinued per INTERLOCKER MAINTAINER. Continue PRN pain regimen. Switched from OxyIR to [place]. Tolerating diet. Passing flatus. Anticipate discharge home tomorrow. 2. Recent diagnosis 03/29/2018 left lower extremity DVT-patient will require 1 additional month of anticoagulation to complete 3-month therapy. Ultrasound left lower extremity completed, report pending. Ok to reinitiate Xarelto per INTERLOCKER MAINTAINER. Xarelto started 06/01/2018. Outpatient follow-up with Dr. Landis/ Dr. High. Patient following with ONC/HEM previously for hypercoagulable workup. Patient to have repeat lab work done following completion of Xarelto regimen. 3. Postoperative EKG changes-Troponin negative. Repeat EKG without ST-T changes. Echocardiogram with EF 65%, trivial tricuspid valve insufficiency, RVSP estimated to be 30 mmHg. DVT prophylaxis-Xarelto. Discharge planning: Anticipate discharge 06/03/2018 per INTERLOCKER MAINTAINER. This patient was seen by SAUL Bradshaw under the supervision of Dr. Leo. <Leatha Leo - Last Filed: 06/02/18 15:10> - Physical Exam Vital Signs Temp Pulse Resp BP Pulse Ox 98.4 F 85 16 109/67 98 06/02/18 14:05 06/02/18 14:05 06/02/18 14:05 06/02/18 14:05 06/02/18 14:05 Oxygen Flow Rate (L/min) 2 Oxygen Delivery Method Room Air Weight: 70.08 kg Body Mass Index (BMI) 24.2 Intake and Output for Last 24 Hours 05/31/18 06/01/18 06/02/18 23:59 23:59 23:59 Intake Total 7125 / 7125 7588 / 7588 620 / 620 Output Total 798 / 798 6585 / 6585 1730 / 1730 Balance 6327 / 6327 1003 / 1003 -1110 / -1110 Laboratory Tests Past 24 Hrs 06/02/18 05:55 WBC 9.2 RBC 2.89 L Hgb 8.7 L Hct 26.4 L MCV 91.3 MCH 30.1 MCHC 33.0 RDW 15.2 H RDW Differential 47.7 H Plt Count 197 MPV 9.8 Immature Gran % (Auto) 0.200 Neut % (Auto) 68.0 Lymph % (Auto) 19.3 [place] % (Auto) 9.8 Eos % (Auto) 2.6 Baso % (Auto) 0.1 Absolute Neuts (auto) 6.2 Absolute Lymphs (auto) 1.77 Total Counted Not Reportable Assessment/Plan This patient was seen in conjunction with Ashley Klein NP. I have independently interviewed and examined the patient and reviewed pertinent historical, laboratory, and other data. Please refer to her note for patient's presentation, findings, and recommendations. 43-year-old female with past medical history of iron deficiency anemia secondary to menometrorrhagia secondary to uterine fibroids, history of left lower extremity DVT, on Xarelto. She was admitted with vaginal bleeding to the [facility] service. She is POD #2, status post emergent KRISTOPHER with bilateral salpingectomy. Patient denies any active complaints except for some pain in her lower abdomen. Ambulating well. No worsening vaginal bleeding Review of systems is negative Vitals were reviewed -stable Labs reviewed -hemoglobin remained stable at 8.7, WBC count is 9.2 Physical Exam: Gen: Pale, not jaundiced, alert oriented x3, well hydrated CVS:HS I +II, regular, no murmurs RESP: Clinically clear to auscultation GI: Bowel Sounds present and normal, slight tenderness at the lower abdomen, no palpable organs, EXT:No edema ASSESSMENT: 1. Acute on chronic anemia secondary to iron deficiency anemia with acute blood loss, status post 8 packed RBC transfusion, stable hemoglobin, patient is intolerant to oral iron, on folic acid and multivitamins, will receive IV iron in the outpatient 2. History of left lower extremity DVT, on Xarelto 3. POD#2 status post emergent KRISTOPHER with bilateral salpingectomy for menometrorrhagia secondary to uterine fibroids Meds reviewed Plan: We will follow-up per gynecology recommendations, Encourage ambulation, continue with pain control Code Visit Inpatient E&M: 10822 Subs Hosp L2
[2018-06-03] MEDS: HYDROcodone Bitartrate/Apap 5/325 Tablet PO ×3 (00:38→09:38)
[2018-06-03 04:00] VITALS: PULSE 62
[2018-06-03 04:18] VITALS: BP 115/64; PULSE 81; RESP 16; TEMP 36.7; O2SAT 98
[2018-06-03 04:28] VITALS: PULSE 81
[2018-06-03] MEDS: Acetaminophen 500 MG Tablet 1000 MG PO (06:35)
[2018-06-03 06:59] VITALS: PULSE 65
[2018-06-03 07:05] LABS: Absolute Lymphocyte Count 1.15 X10^3/ul (0.83-4.51); Absolute Neutrophil Count 3.4 X10^3/uL (2.0-7.7); Basophil# 0.01 X10^3/uL; Basophil% 0.2 % (0-1); Eosinophil# 0.21 X10^3/uL; Hematocrit 25.7 % (37-47); Hemoglobin 8.3 g/dl (12.0-15.0); Lymphocyte # 1.15 X10^3/ul (4.0); Lymphocyte % 21.9 % (19-41); Mean Corp Hgb Conc 32.3 g/gl (32-36); Mean Corpuscular Volume 92.8 fL (81-99); Mean Platelet Vol. 9.5 fl (6.2-12.0); Monocyte# 0.49 X10^3/uL; Monocyte% 9.4 % (0-10); Neutrophil # 3.36 X10^3/uL (2.7-7.7); Neutrophil % 64.1 % (47-70); Platelet Count 231 K/mm3 (150-450); RBC Distribution Width CV 14.9 % (11.6-14.6); RBC Distribution Width SD 47.3 fl (35.1-43.9); Red Blood Count 2.77 M/mm3 (4.2-5.4); White Blood Count 5.2 K/mm3 (4.4-11.0)
[2018-06-03 07:07] LABS: POSITIVE COUNT NO; POSITIVE DIFFERENTIAL NO; POSITIVE MORPHOLOGY NO
--- NOTE | 2018-06-03 08:50 | DCINST_ITS ---
Discharge Diet: - - No beef, pork or fresh vegetables 2 weeks postop. Increase water intake to a minimum of 120 ounces daily. Protein supplementation and concentration is encouraged. Discharge Activity: Return to Normal Activity - Ambulate frequently with periods of rest in between., May Not Drive - while taking narcotic pain medications., May Shower May shower in (days): 0 - NOW May resume sexual activity in: 8 weeks Weight Bearing Status: Full weight bearing Lifting Restrictions: 5 pounds Call your doctor if your incision/area has: Continuous Slow Oozing, Sudden Increased Bleeding, Increased Pain/ Swelling, Increased Redness, Foul Smelling Discharge Call your doctor if you observe: Fever of 101 or Higher, Inability to urinate, Inability to have a bowel movement, Using more than one pad per hour, Shortness of breath Remove Dressing in (days):: 0 - Now Cleanse incision/area with: Soap & Water Allergies/Adverse Reactions: Allergies No Known Allergies Allergy (Verified 05/29/18 11:21) Medications to take at Discharge Multivitamin [Multiple Vitamins] 1 each PO DAILY 04/26/18 Docusate Sodium [Colace] 100 mg PO BID #30 capsule 06/02/18 Hydrocodone/Acetaminophen [Vicodin 5-300 mg Tablet] 1 tablet PO Q4H PRN PRN 7 Days #30 tablet 06/02/18 The following prescriptions were given: Hydrocodone/Acetaminophen [Vicodin 5-300 mg Tablet] 1 tablet PO Q4H PRN PRN 7 Days #30 tablet PRN Reason: Pain Docusate Sodium [Colace] 100 mg PO BID #30 capsule Primary Care Physician: Latisha Rhodes MD [Primary Care Provider] - Test Results: Test results from this visit will be discussed in further detail at your follow- up appointment, if applicable. Please Follow Up With: Jen Mcdermott MD When: one week When: iron transfusion week of June 05 - dates to follow
[2018-06-03] MEDS: Rivaroxaban 20 MG Tablet PO (09:09)
[2018-06-03] MEDS: Docusate Sodium 100 MG Capsule 200 MG PO (09:09)
[2018-06-03] MEDS: Multivitamins,Therapeutic Tablet 1 TABLET PO (09:09)
[2018-06-03] MEDS: Famotidine 20 MG Tablet PO (09:09)
[2018-06-03] MEDS: Folic Acid 1 MG Tablet 2 MG PO (09:09)
[2018-06-03 09:14] VITALS: BP 111/73; PULSE 77; RESP 16; TEMP 36.7; O2SAT 99
--- NOTE | 2018-06-03 09:30 | PCM.PN.OB ---
Patient Problems: Active and Suspected Problems (Last Updated 05/29/18 @ 20:14 by Yady Beltre MD) Menorrhagia (Acute) Metrorrhagia (Acute) Leiomyoma (Acute) Anemia (Acute) Subjective: Eating well. Ambulating well. + flatus. Tolerating oral pain meds. - Physical Exam General: No apparent distress, Well developed, Well nourished HEENT: PERRLA, EOMI, Normocephalic Oral: Moist Mucosa Neck: Supple Lungs: Clear to auscultation, Normal air movement Cardiovascular: Regular rate, Regular Rhythm Abdomen: Bowel Sounds Present, Soft, Non Tender, Non-Distended Extremities: No edema, No Calf Tenderness Skin: No rashes Musculoskeletal: No Tenderness to Palpation of Joints or Extremities Neurological: Cranial nerves II-XII grossly intact Psych/Mental Status: Normal Affect Vital Signs Temp Pulse Resp BP Pulse Ox 98.1 F 77 16 111/73 99 06/03/18 09:14 06/03/18 09:14 06/03/18 09:14 06/03/18 09:14 06/03/18 09:14 Oxygen Flow Rate (L/min) 2 Oxygen Delivery Method Room Air Weight: 154 lb 8 oz Body Mass Index (BMI) 24.2 Intake and Output for Last 24 Hours 06/01/18 06/02/18 06/03/18 23:59 23:59 23:59 Intake Total 7588 / 7588 1420 / 1420 1100 / 1100 Output Total 6585 / 6585 4830 / 4830 2400 / 2400 Balance 1003 / 1003 -3410 / -3410 -1300 / -1300 Laboratory Tests Past 24 Hrs 06/03/18 06:42 WBC 5.2 RBC 2.77 L Hgb 8.3 L Hct 25.7 L MCV 92.8 MCH 30.0 MCHC 32.3 RDW 14.9 H RDW Differential 47.3 H Plt Count 231 MPV 9.5 Immature Gran % (Auto) 0.400 Neut % (Auto) 64.1 Lymph % (Auto) 21.9 [place] % (Auto) 9.4 Eos % (Auto) 4.0 Baso % (Auto) 0.2 Absolute Neuts (auto) 3.4 Absolute Lymphs (auto) 1.15 Total Counted Not Reportable Medical Necessity - Tobacco Use Smoking Status: Never smoker Tobacco Use: Non-smoker Assessment/Plan All Active Problems (Last Updated 05/29/18 @ 20:14 by Yady Beltre MD) Menorrhagia (Acute) Metrorrhagia (Acute) Endometrial mass (Acute) Anemia (Acute) Menorrhagia (Acute) Metrorrhagia (Acute) Leiomyoma (Acute) Anemia (Acute) 1. Emergency KRISTOPHER, bilateral salpingectomy - POD #3 Hb/Hct stable with Xarelto restart minimal vaginal bleeding- consistent to post-hysterectomy Regular diet and opting for low residue - protein addition is recommended voiding well. +flatus pain is well controlled discharge to home 2. DVT recent Xarelto restart 3. Transfusion summary for this hospitalization PRBC x 8 units FFP x 1 appreciate input of Medicine service
--- NOTE | 2018-06-03 10:02 | PCM.PROGNOTE ---
<Ashley Klein - Last Filed: 06/03/18 10:06> Subjective: Patient seen and examined. Complains of burning at incision site. Pain overall fairly controlled. Denies dizziness, lightheadedness. No other current complaints. - Physical Exam General: Alert, Oriented x3, Cooperative, No apparent distress HEENT: Atraumatic, PERRLA, EOMI, Normocephalic Neck: Supple, No JVD, Negative Carotid Bruits Lungs: Clear to auscultation, Normal air movement Cardiovascular: Regular rate, Regular Rhythm, Normal S1, Normal S2, No murmurs Abdomen: Bowel Sounds Present, Soft, Non-Distended, Tender - At area of incision, - - Abdominal incision without redness or drainage. Extremities: No clubbing, No cyanosis, No edema, Capillary Refill Less than 3 Seconds Skin: No rashes, No breakdown Musculoskeletal: No Tenderness to Palpation of Joints or Extremities Neurological: Cranial nerves II-XII grossly intact, Neuro grossly intact Psych/Mental Status: Normal Affect, Appropriate Vital Signs Temp Pulse Resp BP Pulse Ox 98.1 F 77 16 111/73 99 06/03/18 09:14 06/03/18 09:14 06/03/18 09:14 06/03/18 09:14 06/03/18 09:14 Oxygen Flow Rate (L/min) 2 Oxygen Delivery Method Room Air Weight: 154 lb 8 oz Body Mass Index (BMI) 24.2 Intake and Output for Last 24 Hours 06/01/18 06/02/18 06/03/18 23:59 23:59 23:59 Intake Total 7588 / 7588 1420 / 1420 1100 / 1100 Output Total 6585 / 6585 4830 / 4830 2400 / 2400 Balance 1003 / 1003 -3410 / -3410 -1300 / -1300 Laboratory Tests Past 24 Hrs 06/03/18 06:42 WBC 5.2 RBC 2.77 L Hgb 8.3 L Hct 25.7 L MCV 92.8 MCH 30.0 MCHC 32.3 RDW 14.9 H RDW Differential 47.3 H Plt Count 231 MPV 9.5 Immature Gran % (Auto) 0.400 Neut % (Auto) 64.1 Lymph % (Auto) 21.9 [place] % (Auto) 9.4 Eos % (Auto) 4.0 Baso % (Auto) 0.2 Absolute Neuts (auto) 3.4 Absolute Lymphs (auto) 1.15 Total Counted Not Reportable Medical Necessity - Tobacco Use Smoking Status: Never smoker Tobacco Use: Non-smoker Assessment/Plan All Active Problems (Last Updated 05/29/18 @ 20:14 by Yady Beltre MD) Menorrhagia (Acute) Metrorrhagia (Acute) Endometrial mass (Acute) Anemia (Acute) Menorrhagia (Acute) Metrorrhagia (Acute) Leiomyoma (Acute) Anemia (Acute) 1. Acute on chronic anemia secondary to acute on chronic menometrorrhagia secondary to uterine fibroids with underlying iron deficiency anemia-status post total hysterectomy, bilateral salpingectomy 05/31/[address] Mcdermott. Status post total of 8 units packed red blood cells and 1 unit FFP during admission. Cefotetan discontinued per ANALYSIS ENGINEER. Continue PRN pain regimen. Switched from OxyIR to [place]. DC home today per ANALYSIS ENGINEER. Patient stable at time of discharge. Outpatient follow up with ANALYSIS ENGINEER, PCP and hem/onc. 2. Recent diagnosis 03/29/2018 left lower extremity DVT-patient will require 1 additional month of anticoagulation to complete 3-month therapy. Ultrasound left lower extremity completed, negative for dvt. Ok to reinitiate Xarelto per ANALYSIS ENGINEER. Xarelto started 06/01/2018. Outpatient follow-up with Dr. Landis/ Dr. High. Patient following with ONC/HEM previously for hypercoagulable workup. Patient to have repeat lab work done following completion of Xarelto regimen. 3. Postoperative EKG changes-Troponin negative. Repeat EKG without ST-T changes. Echocardiogram with EF 65%, trivial tricuspid valve insufficiency, RVSP estimated to be 30 mmHg. DVT prophylaxis-Xarelto. This patient was seen by SAUL Bradshaw under the supervision of Dr. Leo. <Leatha Leo - Last Filed: 06/03/18 15:42> - Physical Exam Vital Signs Temp Pulse Resp BP Pulse Ox 98.1 F 77 16 111/73 99 06/03/18 09:14 06/03/18 09:14 06/03/18 09:14 06/03/18 09:14 06/03/18 09:14 Oxygen Flow Rate (L/min) 2 Oxygen Delivery Method Room Air Weight: 70.08 kg Body Mass Index (BMI) 24.2 Intake and Output for Last 24 Hours 06/01/18 06/02/18 06/03/18 23:59 23:59 23:59 Intake Total 7588 / 7588 1420 / 1420 1100 / 1100 Output Total 6585 / 6585 4830 / 4830 2400 / 2400 Balance 1003 / 1003 -3410 / -3410 -1300 / -1300 Laboratory Tests Past 24 Hrs 06/03/18 06:42 WBC 5.2 RBC 2.77 L Hgb 8.3 L Hct 25.7 L MCV 92.8 MCH 30.0 MCHC 32.3 RDW 14.9 H RDW Differential 47.3 H Plt Count 231 MPV 9.5 Immature Gran % (Auto) 0.400 Neut % (Auto) 64.1 Lymph % (Auto) 21.9 [place] % (Auto) 9.4 Eos % (Auto) 4.0 Baso % (Auto) 0.2 Absolute Neuts (auto) 3.4 Absolute Lymphs (auto) 1.15 Total Counted Not Reportable Assessment/Plan This patient was seen in conjunction with Ashley Klein NP. I have independently interviewed and examined the patient and reviewed pertinent historical, laboratory, and other data. Please refer to her note for patient's presentation, findings, and recommendations. 43-year-old female with past medical history of iron deficiency anemia secondary to menometrorrhagia secondary to uterine fibroids, history of left lower extremity DVT, on Xarelto. She was admitted with vaginal bleeding to the MACHINE SIGN WRITER service. She is POD #3, status post emergent KRISTOPHER with bilateral salpingectomy. Patient denies any active complaints except for some pain in her lower abdomen. Ambulating well. No worsening vaginal bleeding Review of systems is negative Vitals were reviewed -stable Labs reviewed -hemoglobin remained stable at 8.3, WBC count is 5.2 Physical Exam: Gen: Pale, not jaundiced, alert oriented x3, well hydrated CVS:HS I +II, regular, no murmurs RESP: Clinically clear to auscultation GI: Bowel Sounds present and normal, slight tenderness at the lower abdomen, no palpable organs, EXT:No edema ASSESSMENT: 1. Acute on chronic anemia secondary to iron deficiency anemia with acute blood loss, status post 8 packed RBC transfusion, stable hemoglobin, patient is intolerant to oral iron, on folic acid and multivitamins, will receive IV iron in the outpatient 2. History of left lower extremity DVT, on Xarelto 3. POD#3 status post emergent KRISTOPHER with bilateral salpingectomy for menometrorrhagia secondary to uterine fibroids Meds reviewed Plan: Agree with discharge. Continue with folic acid, multivitamin and plan for IV iron Monitor Hb in outpatient Code Visit Inpatient E&M: 84240 Subs Hosp L2
--- NOTE | 2018-06-03 10:06 | PN_ITS ---
<Ashley Klein - Last Filed: 06/03/18 10:06> Subjective: Patient seen and examined. Complains of burning at incision site. Pain overall fairly controlled. Denies dizziness, lightheadedness. No other current complaints. - Physical Exam General: Alert, Oriented x3, Cooperative, No apparent distress HEENT: Atraumatic, PERRLA, EOMI, Normocephalic Neck: Supple, No JVD, Negative Carotid Bruits Lungs: Clear to auscultation, Normal air movement Cardiovascular: Regular rate, Regular Rhythm, Normal S1, Normal S2, No murmurs Abdomen: Bowel Sounds Present, Soft, Non-Distended, Tender - At area of incision, - - Abdominal incision without redness or drainage. Extremities: No clubbing, No cyanosis, No edema, Capillary Refill Less than 3 Seconds Skin: No rashes, No breakdown Musculoskeletal: No Tenderness to Palpation of Joints or Extremities Neurological: Cranial nerves II-XII grossly intact, Neuro grossly intact Psych/Mental Status: Normal Affect, Appropriate Vital Signs Temp Pulse Resp BP Pulse Ox 98.1 F 77 16 111/73 99 06/03/18 09:14 06/03/18 09:14 06/03/18 09:14 06/03/18 09:14 06/03/18 09:14 Oxygen Flow Rate (L/min) 2 Oxygen Delivery Method Room Air Weight: 154 lb 8 oz Body Mass Index (BMI) 24.2 Intake and Output for Last 24 Hours 06/01/18 06/02/18 06/03/18 23:59 23:59 23:59 Intake Total 7588 / 7588 1420 / 1420 1100 / 1100 Output Total 6585 / 6585 4830 / 4830 2400 / 2400 Balance 1003 / 1003 -3410 / -3410 -1300 / -1300 Laboratory Tests Past 24 Hrs 06/03/18 06:42 WBC 5.2 RBC 2.77 L Hgb 8.3 L Hct 25.7 L MCV 92.8 MCH 30.0 MCHC 32.3 RDW 14.9 H RDW Differential 47.3 H Plt Count 231 MPV 9.5 Immature Gran % (Auto) 0.400 Neut % (Auto) 64.1 Lymph % (Auto) 21.9 [place] % (Auto) 9.4 Eos % (Auto) 4.0 Baso % (Auto) 0.2 Absolute Neuts (auto) 3.4 Absolute Lymphs (auto) 1.15 Total Counted Not Reportable Medical Necessity - Tobacco Use Smoking Status: Never smoker Tobacco Use: Non-smoker Assessment/Plan All Active Problems (Last Updated 05/29/18 @ 20:14 by Yady Beltre MD) Menorrhagia (Acute) Metrorrhagia (Acute) Endometrial mass (Acute) Anemia (Acute) Menorrhagia (Acute) Metrorrhagia (Acute) Leiomyoma (Acute) Anemia (Acute) 1. Acute on chronic anemia secondary to acute on chronic menometrorrhagia secondary to uterine fibroids with underlying iron deficiency anemia-status post total hysterectomy, bilateral salpingectomy 05/31/[address] Mcdermott. Status post total of 8 units packed red blood cells and 1 unit FFP during admission. Cefotetan discontinued per [employer]. Continue PRN pain regimen. Switched from OxyIR to [place]. DC home today per [employer]. Patient stable at time of discharge. Outpatient follow up with [employer], PCP and hem/onc. 2. Recent diagnosis 03/29/2018 left lower extremity DVT-patient will require 1 add itional month of anticoagulation to complete 3-month therapy. Ultrasound left lower extremity completed, negative for dvt. Ok to reinitiate Xarelto per [employer]. Xarelto started 06/01/2018. Outpatient follow-up with Dr. Landis/ Dr. High. Patient following with [facility] previously for hypercoagulable workup. Patient to have repeat lab work done following completion of Xarelto regimen. 3. Postoperative EKG changes-Troponin negative. Repeat EKG without ST-T changes. Echocardiogram with EF 65%, trivial tricuspid valve insufficiency, RVSP estimated to be 30 mmHg. DVT prophylaxis-Xarelto. This patient was seen by SAUL Bradshaw under the supervision of Dr. Leo. <Leatha Leo - Last Filed: 06/03/18 15:42> - Physical Exam Vital Signs Temp Pulse Resp BP Pulse Ox 98.1 F 77 16 111/73 99 06/03/18 09:14 06/03/18 09:14 06/03/18 09:14 06/03/18 09:14 06/03/18 09:14 Oxygen Flow Rate (L/min) 2 Oxygen Delivery Method Room Air Weight: 70.08 kg Body Mass Index (BMI) 24.2 Intake and Output for Last 24 Hours 06/01/18 06/02/18 06/03/18 23:59 23:59 23:59 Intake Total 7588 / 7588 1420 / 1420 1100 / 1100 Output Total 6585 / 6585 4830 / 4830 2400 / 2400 Balance 1003 / 1003 -3410 / -3410 -1300 / -1300 Laboratory Tests Past 24 Hrs 06/03/18 06:42 WBC 5.2 RBC 2.77 L Hgb 8.3 L Hct 25.7 L MCV 92.8 MCH 30.0 MCHC 32.3 RDW 14.9 H RDW Differential 47.3 H Plt Count 231 MPV 9.5 Immature Gran % (Auto) 0.400 Neut % (Auto) 64.1 Lymph % (Auto) 21.9 [place] % (Auto) 9.4 Eos % (Auto) 4.0 Baso % (Auto) 0.2 Absolute Neuts (auto) 3.4 Absolute Lymphs (auto) 1.15 Total Counted Not Reportable Assessment/Plan This patient was seen in conjunction with Ashley Klein NP. I have independently interviewed and examined the patient and reviewed pertinent historical, laboratory, and other data. Please refer to her note for patient's presentation, findings, and recommendations. 43-year-old female with past medical history of iron deficiency anemia secondary to menometrorrhagia secondary to uterine fibroids, history of left lower extremity DVT, on Xarelto. She was admitted with vaginal bleeding to the [facility] service. She is POD #3, status post emergent KRISTOPHER with bilateral salpingectomy. Patient denies any active complaints except for some pain in her lower abdomen. Ambulating well. No worsening vaginal bleeding Review of systems is negative Vitals were reviewed -stable Labs reviewed -hemoglobin remained stable at 8.3, WBC count is 5.2 Physical Exam: Gen: Pale, not jaundiced, alert oriented x3, well hydrated CVS:HS I +II, regular, no murmurs RESP: Clinically clear to auscultation GI: Bowel Sounds present and normal, slight tenderness at the lower abdomen, no palpable organs, EXT:No edema ASSESSMENT: 1. Acute on chronic anemia secondary to iron deficiency anemia with acute blood loss, status post 8 packed RBC transfusion, stable hemoglobin, patient is intolerant to oral iron, on folic acid and multivitamins, will receive IV iron in the outpatient 2. History of left lower extremity DVT, on Xarelto 3. POD#3 status post emergent KRISTOPHER with bilateral salpingectomy for menometrorrhagia secondary to uterine fibroids Meds reviewed Plan: Agree with discharge. Continue with folic acid, multivitamin and plan for IV iron Monitor Hb in outpatient Code Visit Inpatient E&M: [id number] Subs Hosp L2
--- NOTE | 2018-06-06 11:34 | DS.PCM_ITS ---
Discharge Date and Diagnosis Date of Admission: 05/29/18 Date of Discharge: 06/03/18 - Primary Discharge Diagnosis Patient presented to the hospital with menorrhagia and metrorrhagia related to a large leiomyoma of the uterus. Patient was consecutively using Xarelto for a deep venous thrombosis diagnosed at the end of February. Patient also diagnosed with severe anemia and required transfusion upon admission - Secondary Discharge Diagnosis Chronic Problems (Last Updated 05/29/18 @ 20:14 by Yady Beltre MD) DVT, lower extremity, distal, acute (Chronic) Iron deficiency anemia (Chronic) Menometrorrhagia (Chronic) Hospital Course and Treatment Patient had consultative request from the hospitalist service for conversion of the Xarelto to Coumadin to plan for the potential of an emergency hysterectomy. A scheduled hysterectomy had been planned for the middle of June following 3months of anticoagulative use Operations: - - Emergency total abdominal hysterectomy and bilateral salpinge ctomy Summary of Care Provided: The patient is a 43 year old F G2, P2 presented with severe anemia secondary to acute on chronic blood loss from a large leiomyoma along with anticoagulation therapy for a deep venous thrombosis diagnosed February,. Patient admitted on May 29 for transfusion of blood. Consultation from the hospitalist service was also requested at that time so that conversion from the Xarelto to Coumadin could occur to plan for the potential of an emergency abdominal hysterectomy. The planned or scheduled hysterectomy was for June 2018. The June scheduled surgery correlated to 3months of Xarelto use after the diagnosis of the DVT. Patient had packed red blood cell transfusion. The speech therapist early intervention hours of May 31, 2018 new onset of menorrhagia occurred. Due to the extensive blood loss and ongoing threat the decision for an immediate or emergency total abdominal hysterectomy was concluded. The ability for a less in vasive hysterectomy did not exist due to the large piece of mesh in the ventral for a ventral hernia repair in the past. Patient underwent KRISTOPHER, bilateral salpingectomy with 250cc blood loss. Postop blood replacement and FFP occurred to address the preop blood loss. EKG changes immediately postop were further monitored with PCU admission. Troponin evaluation was negative. Stabilization of blood counts, progression of ambulation, oral intake and pain control allowed discharge to the home setting postop day 3, that being June 03, 2018. Home medications included colace, vicodin. Continued iron infusions arranged through Dr. Iskarus office to occur as outpatient.[] Subjective: + flatus. No nausea or vomiting. Tolerating Vicodin. Voiding well. - Physical Exam General: No apparent distress, Well developed, Well nourished HEENT: Atraumatic, EOMI Oral: Moist Mucosa Neck: Supple Lungs: Clear to auscultation Cardiovascular: Regular rate, Regular Rhythm Abdomen: Bowel Sounds Present, Soft, Non Tender Extremities: No edema Skin: No rashes Musculoskeletal: No Tenderness to Palpation of Joints or Extremities Neurological: Cranial nerves II-XII grossly intact Psych/Mental Status: Normal Affect Vital Signs Temp Pulse Resp BP Pulse Ox 98.1 F 77 16 111/73 99 06/03/18 09:14 06/03/18 09:14 06/03/18 09:14 06/03/18 09:14 06/03/18 09:14 Oxygen Flow Rate (L/min) 2 Oxygen Delivery Method Room Air Weight: 154 lb 8 oz Body Mass Index (BMI) 24.2 Discharge Diet: - - No beef, pork or fresh vegetables 2 weeks postop. Increase water intake to a minimum of 120 ounces daily. Protein supplementation and concentration is encouraged. Discharge Activity: Return to Normal Activity - Ambulate frequently with periods of rest in between., May Not Drive - while taking narcotic pain medications., May Shower May shower in (days): 0 - NOW May resume sexual activity in: 8 weeks Weight Bearing Status: Full weight bearing Call your doctor if your incision/area has: Continuous Slow Oozing, Sudden Increased Bleeding, Increased Pain/ Swelling, Increased Redness, Foul Smelling Discharge Call your doctor if you observe: Fever of 101 or Higher, Inability to urinate, Inability to have a bowel movement, Using more than one pad per hour, Shortness of breath Remove Dressing in (days):: 0 - Now Cleanse incision/area with: Soap & Water Home Medications: Medications to take at Discharge Multivitamin [Multiple Vitamins] 1 each PO DAILY 04/26/18 Docusate Sodium [Colace] 100 mg PO BID #30 capsule 06/02/18 Hydrocodone/Acetaminophen [Vicodin 5-300 mg Tablet] 1 tablet PO Q4H PRN PRN 7 Days #30 tablet 06/02/18 Following Prescrptions Were Given to Patient: Hydrocodone/Acetaminophen [Vicodin 5-300 mg Tablet] 1 tablet PO Q4H PRN PRN 7 Days #30 tablet PRN Reason: Pain Docusate Sodium [Colace] 100 mg PO BID #30 capsule Primary Care Physician: Latisha Rhodes MD [Primary Care Provider] - Please Follow Up With: Jen Mcdermott MD When: one week When: iron transfusion week of June 05 - dates to follow Disposition: Home Medical Necessity - Tobacco Use Smoking Status: Never smoker Tobacco Use: Non-smoker Meaningful Use Info Meaningful Use Diagnoses (Choose all that apply): None applicable - VTE Anticoag overlap given w/in hospital stay or rx'd at dc?: Yes Pt receive overlap for 5 days?: No Reason overlap not ordered, prescribed, or given for 5 days: Medical Contraindication
== END 2018-06-03 11:19 | disposition home or self-care (01) | DRG 742 ==
LOC: ED 13:12 → MS3 14:14 → PCU 05-31 10:23
PROVIDERS: Anesthesiology; Family Medicine; Obstetrics & Gynecology; Admitting Provider Obstetrics & Gynecology; Emergency Provider Emergency Medicine; Family Provider Family Medicine; PCP Family Medicine; Visit Provider Internal Medicine
PROC: 0UT90ZZ Resection of Uterus, Open Approach (ICD-10-PCS; CPT 58150; principal; 2018-05-31 07:10)
DX: D25.9 Leiomyoma of uterus, unspecified (principal); D62 Acute posthemorrhagic anemia; Z86.718 Personal history of other venous thrombosis and embolism; N92.1 Excessive and frequent menstruation with irregular cycle; Z79.01 Long term (current) use of anticoagulants
CPT/HCPCS: 36415; 80048; 83735; 84484; 85014; 85018; 85025; 85027; 85610; 85730; 86850; 86900; 86920; 86922; 88307; 93005; 93306; 93971; 94762; 99283; J1756; J7030; J7040; J7120; P9016; P9017; A4216; J0610; J2405

== ENCOUNTER → 2018-06-22 11:30 | Outpatient (CLI) | payer OTHER, SELFPAY ==
--- NOTE | 2018-06-22 11:35 | VDLE_ITS ---
Reason For Study: LEG PAIN Procedure LEFT Exam performed in department. GSV is normal. A preliminary report was called and/or faxed CFV is compressible, spontaneous, phasic, to Dr. Mcdermott. competent, and demonstrates normal augmentation. FV is compressible, spontaneous, phasic, competent and demonstrates normal augmentation. POP V is compressible, spontaneous, phasic, competent and demonstrates normal augmentation. T/P Trunk is compressible. PTV is compressible. LT PerV is compressible. <> Interpretation Summary Deep veins of the left lower extremity are patent and compressible segmentally. There is no evidence of left lower extremity deep vein thrombosis. Valvular competence appears intact within the proximal deep venous system on the left . The left greater saphenous vein appears patent and compressible segmentally. Ordering Physician: Jen Mcdermott Referring Physician: Jen Mcdermott Performed By: Tammy Cotto RVT
== END ==
PROVIDERS: Family Provider Family Medicine; PCP Family Medicine; Referring Provider Obstetrics & Gynecology; Visit Provider Obstetrics & Gynecology
DX: M79.606 Pain in leg, unspecified (principal); Z86.718 Personal history of other venous thrombosis and embolism; Z98.890 Other specified postprocedural states
CPT/HCPCS: 93971

== ENCOUNTER → 2018-09-18 14:37 | Outpatient (CLI) | payer OTHER, SELFPAY ==
[2018-07-20 11:03] VITALS: BMI 23.6
--- NOTE | 2018-09-18 14:39 | BI_ITS ---
MAMMOGRAPHY - BILATERAL SCREENING REASON FOR EXAM: Female, 43 years old. Routine annual screening examination. PERTINENT HISTORY: Non-contributory. TECHNIQUE: Digital bilateral breast sarah (3D mammographic acquisition) in the CC and MLO projections. 2-D mediolateral oblique (MLO) and craniocaudad (CC) views of both breasts were obtained. CAD: Full Field Digital Mammography with Computer Added Detection was performed. COMPARISON: Comparison is made with prior study dated August 08, 2017 and May 01, 2012. FINDINGS: Breast Composition: The breasts are extremely dense, which lowers the sensitivity of mammography. There are no dominant masses or suspicious calcifications. No other significant abnormalities are identified. There has been no significant change since the prior study. BI/SCREENING MAMM (CAD), BILAT IMPRESSION: Stable bilateral screening mammogram. Yearly follow-up mammogram recommended. (A) ASSESSMENT CATEGORY: BIRADS Category 1: Negative. A letter regarding these results will be sent to the patient by the facility within 30 days. Approximately 10% of breast cancers are not detected by mammography. A normal mammogram should not delay biopsy of a clinically suspicious abnormality. [id number] Electronically Signed: Tony Sharif MD at 10:32 EST , Service support ,
== END ==
PROVIDERS: Family Provider Family Medicine; PCP Family Medicine; Referring Provider Obstetrics & Gynecology; Visit Provider Obstetrics & Gynecology
DX: Z12.31 Encounter for screening mammogram for malignant neoplasm of breast (principal)
CPT/HCPCS: 77063; 77067

== ENCOUNTER 2020-05-19 19:19 | Outpatient (RCR) | payer SELFPAY ==
[2020-01-31 15:26] VITALS: BMI 22.0
== END 2020-05-21 23:59 ==
LOC: EMPH 19:19
PROVIDERS: Visit Provider Family Medicine Geriatric Medicine
DX: Z11.59 Encounter for screening for other viral diseases (principal)
CPT/HCPCS: 87635; U0003

== ENCOUNTER → 2020-05-26 | Outpatient (CLI) | payer OTHER, SELFPAY ==
[2020-01-31 15:26] VITALS: BMI 22.0
--- NOTE | 2020-05-26 14:37 | BI_ITS ---
MAMMOGRAPHY - BILATERAL SCREENING REASON FOR EXAM: Female, 45 years old. Routine annual screening examination. PERTINENT HISTORY: NO FAM HX OF BREAST CA, PT QUIT BC IN 2018, NO SX, BILAT MOLES MARKED TECHNIQUE: Digital bilateral breast matheus (3D mammographic acquisition) in the CC and MLO projections. 2-D mediolateral oblique (MLO) and craniocaudad (CC) views of both breasts were obtained. CAD: Full Field Digital Mammography with Computer Added Detection was performed. COMPARISON: 09/18/2018 and 08/08/1970 FINDINGS: Breast Composition: The breasts are extremely dense, which lowers the sensitivity of mammography. There are no dominant masses or suspicious calcifications. No other significant abnormalities are identified. BI/SCREEN MAMM (CAD) W/MATHEUS BILAT IMPRESSION: Stable bilateral screening mammogram. Yearly follow-up mammogram recommended. (A) ASSESSMENT CATEGORY: BIRADS Category 2: Benign. A letter regarding these results will be sent to the patient by the facility within 30 days. Approximately 10% of breast cancers are not detected by mammography. A normal mammogram should not delay biopsy of a clinically suspicious abnormality. [id number] Electronically Signed: Jaylen Kaufman, at 14:15 EDT Tel , Service support ,
== END | disposition home or self-care (01) ==
LOC: OPBI 14:35
PROVIDERS: PCP Family Medicine; Referring Provider Student in an Organized Health Care Education/Training Program; Visit Provider Student in an Organized Health Care Education/Training Program
DX: Z12.31 Encounter for screening mammogram for malignant neoplasm of breast (principal)
CPT/HCPCS: 77063; 77067

== ENCOUNTER 2020-06-19 10:48 | Outpatient (RCR) | payer OTHER, SELFPAY ==
[2020-01-31 15:26] VITALS: BMI 22.0
== END 2020-06-21 23:59 ==
LOC: EMPH 10:48
PROVIDERS: Visit Provider Family Medicine Geriatric Medicine
DX: Z03.818 Encounter for observation for suspected exposure to other biological agents ruled out (principal)
CPT/HCPCS: 87426

== ENCOUNTER 2020-07-16 09:30 | Outpatient (RCR) | payer OTHER, SELFPAY ==
[2020-01-31 15:26] VITALS: BMI 22.0
== END 2020-07-21 23:59 ==
LOC: EMPH 09:30
PROVIDERS: Visit Provider Family Medicine Geriatric Medicine
DX: Z03.818 Encounter for observation for suspected exposure to other biological agents ruled out (principal)
CPT/HCPCS: 87426

== ENCOUNTER 2020-08-18 12:40 | Outpatient (RCR) | payer OTHER, SELFPAY | END 2020-08-21 23:59 | LOC: EMPH 12:40 | PROVIDERS: Visit Provider Family Medicine Geriatric Medicine | DX: Z03.818 Encounter for observation for suspected exposure to other biological agents ruled out (principal) | CPT/HCPCS: 87426 ==

== ENCOUNTER 2020-09-19 16:59 | Outpatient (RCR) | payer OTHER, SELFPAY | END 2020-09-21 23:59 | LOC: EMPH 16:59 | PROVIDERS: Visit Provider Family Medicine Geriatric Medicine | DX: Z03.818 Encounter for observation for suspected exposure to other biological agents ruled out (principal) | CPT/HCPCS: 87426 ==

== ENCOUNTER 2020-10-17 14:51 | Outpatient (RCR) | payer OTHER, SELFPAY | END 2020-10-19 23:59 | LOC: EMPH 14:51 | PROVIDERS: Visit Provider Family Medicine Geriatric Medicine | DX: Z03.818 Encounter for observation for suspected exposure to other biological agents ruled out (principal) | CPT/HCPCS: 87426 ==

== ENCOUNTER 2020-11-12 12:06 | Outpatient (RCR) | payer OTHER, SELFPAY | END 2020-11-19 23:59 | LOC: EMPH 12:06 | PROVIDERS: Visit Provider Family Medicine Geriatric Medicine | DX: Z03.818 Encounter for observation for suspected exposure to other biological agents ruled out (principal) | CPT/HCPCS: 87426 ==

== ENCOUNTER 2020-12-12 10:50 | Outpatient (RCR) | payer OTHER, SELFPAY | END 2020-12-19 23:59 | LOC: EMPH 10:50 | PROVIDERS: Visit Provider Family Medicine Geriatric Medicine | DX: Z03.818 Encounter for observation for suspected exposure to other biological agents ruled out (principal) | CPT/HCPCS: 87426 ==

== ENCOUNTER 2021-04-21 12:25 | Outpatient (RCR) | payer OTHER, SELFPAY | END 2021-04-21 23:59 | LOC: EMPH 12:25 | PROVIDERS: Visit Provider Family Medicine Geriatric Medicine | DX: Z03.818 Encounter for observation for suspected exposure to other biological agents ruled out (principal) | CPT/HCPCS: 87426 ==

== ENCOUNTER 2021-05-04 13:26 | Outpatient (RCR) | payer OTHER, SELFPAY | END 2021-05-21 23:59 | LOC: EMPH 13:26 | PROVIDERS: Referring Provider Family Medicine Geriatric Medicine; Visit Provider Family Medicine Geriatric Medicine | DX: Z03.818 Encounter for observation for suspected exposure to other biological agents ruled out (principal) | CPT/HCPCS: 87426 ==

== ENCOUNTER 2021-06-18 12:06 | Outpatient (RCR) | payer OTHER, SELFPAY | END 2021-06-21 23:59 | LOC: EMPH 12:06 | PROVIDERS: Referring Provider Family Medicine Geriatric Medicine; Visit Provider Family Medicine Geriatric Medicine | DX: Z03.818 Encounter for observation for suspected exposure to other biological agents ruled out (principal) | CPT/HCPCS: 87426 ==

== ENCOUNTER 2021-06-29 09:30 | Outpatient (RCR) | payer OTHER, SELFPAY | END 2021-07-21 23:59 | LOC: EMPH 09:30 | PROVIDERS: Referring Provider Family Medicine Geriatric Medicine; Visit Provider Family Medicine Geriatric Medicine | DX: Z03.818 Encounter for observation for suspected exposure to other biological agents ruled out (principal) | CPT/HCPCS: 87426 ==

== ENCOUNTER → 2021-07-30 14:25 | Outpatient (CLI) | payer OTHER, SELFPAY ==
--- NOTE | 2021-07-30 14:30 | US_ITS ---
STUDY: ULTRASOUND BREAST - LEFT REASON FOR EXAM: Female, 46 years old. Palpable lump in the deep medial aspect of the left breast. TECHNIQUE: Axial and longitudinal images of the LEFT breast were performed with a high resolution ultrasound transducer. # OF IMAGES: 18 COMPARISON: Comparison is made with prior mammogram done earlier in the day. FINDINGS: LEFT Breast: The upper medial aspect of the left breast was examined by ultrasound. No sonographic abnormality is seen. US/Breast Limited Unilateral IMPRESSION: No sonographic abnormality is seen. ASSESSMENT CATEGORY: BIRADS Category 1: Negative. A letter regarding these results will be sent to the patient by the facility within 30 days. Electronically Signed: Tony Sharif MD at 8:10 EST , Service support ,
--- NOTE | 2021-07-30 14:30 | BI_ITS ---
MAMMOGRAPHY - BILATERAL DIAGNOSTIC REASON FOR EXAM: Female, 46 years old. Left breast lump at the 9 to 10 o''clock position close to the chest wall. Painful to touch. PERTINENT HISTORY: Non-contributory. TECHNIQUE: Digital bilateral breast sarah (3D mammographic acquisition) in the CC and MLO projections. 2-D mediolateral oblique (MLO) and craniocaudad (CC) views of both breasts were obtained. CAD: Full Field Digital Mammography with Computer Added Detection was performed. COMPARISON: Comparison is made with prior study dated 05/26/2020 and 09/10/2018. FINDINGS: Breast Composition: The breasts are extremely dense, which lowers the sensitivity of mammography. There are no dominant masses or suspicious calcifications. No other significant abnormalities are identified. There has been no significant change since the prior study. BI/DIAG MAMM W/CAD, BILAT IMPRESSION: Stable bilateral diagnostic mammogram. With the patient''s history of a palpable lump in the left breast, correlation with ultrasound is recommended. ASSESSMENT CATEGORY: BIRADS Category 0: Incomplete. Need additional imaging evaluation. A letter regarding these results will be sent to the patient by the facility within 30 days. Approximately 10% of breast cancers are not detected by mammography. A normal mammogram should not delay biopsy of a clinically suspicious abnormality. Electronically Signed: Tony Sharif MD at 15:43 EST , Service support ,
== END ==
PROVIDERS: PCP Student in an Organized Health Care Education/Training Program; Referring Provider Student in an Organized Health Care Education/Training Program; Visit Provider Student in an Organized Health Care Education/Training Program
DX: N64.4 Mastodynia (principal)
CPT/HCPCS: 76642; 77062; 77066; G0279

== ENCOUNTER → 2021-08-20 13:14 | Outpatient (CLI) | payer OTHER, SELFPAY ==
--- NOTE | 2021-08-20 13:20 | CT_ITS ---
STUDY: CT ABDOMEN AND PELVIS WITH CONTRAST REASON FOR EXAM: Female, 46 years old. Flank pain, possible hernia RADIATION DOSAGE (If Supplied By Facility): CTDIvol = ( 10.07 ) mGy, DLP = ( 377.40 ) mGycm TECHNIQUE: Transaxial images were obtained from the dome of the diaphragm to the symphysis pubis with oral contrast. Oral and amp; IV Readi-CAT and amp; 100mL Isovue-370 was administered. Sagittal and coronal images were reconstructed. Individualized dose optimization techniques were used for this CT. COMPARISON: None. FINDINGS: The visualized lung bases are unremarkable. The visualized portions of the heart are within normal limits. Liver is unremarkable aside from hypodensities within the left lobe likely representing hemangiomas. Normal gallbladder and extrahepatic biliary system. Normal spleen. Normal pancreas. Normal bilateral adrenal glands. Normal right kidney. Normal left kidney. Normal visualized stomach. Normal small intestine. Retained stool throughout the colon There is non-visualization of the appendix. Normal abdominal aorta. Normal inferior vena cava. Normal retroperitoneum. Normal urinary bladder. Normal abdominal wall. Normal osseous structures. CT/Abdomen/Pelvis WITH Contrast IMPRESSION: No suspicious solid organ abnormality, hypoattenuated lesions within the left lobe of the liver are likely hemangiomas Retained stool throughout the colon No free intraperitoneal fluid, air, or suspicious adenopathy Electronically Signed: Sivakumar James MD at 15:01 EST , Service support ,
== END ==
PROVIDERS: PCP Family Medicine; Referring Provider Surgery; Visit Provider Surgery
DX: R10.31 Right lower quadrant pain (principal)
CPT/HCPCS: 74177; Q9967; A4216

== ENCOUNTER 2021-09-07 15:35 | Outpatient (CLI) | payer OTHER, SELFPAY ==
--- NOTE | 2021-09-07 | LIP_PTH ---
PATIENT: RICHARD LAM [facility] U#:[id number] AGE/SX: 46/F ROOM: RE09/07/[address]: Dr. Toney Anaya MD : 1975 BED: DIS: 09/07/2021 SPEC #: [id number] RECD: 09/07/21 15:31 STATUS: VONNIE KENNEDY #: [id number] JULIA: 09/07/21 00:[address]: Toney Anaya DEPT: SURGICAL PATHOLOGY RECD BY: Nicolas Chen ENTERED: 09/08/21 08:24 SP TYPE: LIPOMA OTHR DR: Dr. Latisha Rhodes MD Tissues: Soft tissues, NOS Procedures: Surgery Specimen Level III HEADER OPERATION: Excision of right thigh lipoma PRE-OP DIAGNOSIS: Right thigh lipoma TISSUE SUBMITTED: Right thigh lipoma MICROSCOPIC DIAGNOSIS Right thigh lipoma, excision: Mature adipose tissue, consistent with lipoma. SJ:sam 09/09/2021 MICROSCOPIC DESCRIPTION Slides are reviewed. GROSS DESCRIPTION Received in fixative is one container labeled with the patient's name and designated right thigh lipoma. The specimen consists of an irregular piece of yellow adipose tissue measuring 3 x 2 x 1 cm. Sections reveal yellow adipose cut surfaces without area of hemorrhage, necrosis or cystic degeneration. Publications Manager sections are submitted in one cassette. / LA:sam 09/08/2021 TC:1 CPT: 53375
== END 2021-09-07 23:59 | disposition short-term general hospital (02) ==
LOC: LABSPEC 15:37
PROVIDERS: PCP Family Medicine; Visit Provider Surgery
DX: D17.23 Benign lipomatous neoplasm of skin and subcutaneous tissue of right leg (principal)
CPT/HCPCS: 88304

== ENCOUNTER → 2023-02-01 | Outpatient (CLI) | payer OTHER, SELFPAY ==
[2023-02-01 09:05] LABS: Cholesterol 199 mg/dL (200); High Density Lipoprotein 85 mg/dL; Triglycerides 49 mg/dL; Very Low Density Lipoprotein 10 mg/dL (5-40)
[2023-02-01 14:41] LABS: Glucose 97 mg/dL (74-106)
== END | disposition home or self-care (01) ==
LOC: LAB.FUTURE 08:08 → LAB 08:11
PROVIDERS: PCP Family Medicine; Referring Provider Student in an Organized Health Care Education/Training Program; Visit Provider Student in an Organized Health Care Education/Training Program
DX: Z01.419 Encounter for gynecological examination (general) (routine) without abnormal findings (principal); Z13.1 Encounter for screening for diabetes mellitus
CPT/HCPCS: 36415; 80061; 82947

== ENCOUNTER → 2023-02-16 | Outpatient (CLI) | payer OTHER, SELFPAY ==
[2023-02-16 16:23] LABS: Absolute Lymphocyte Count 3.13 X10^3/uL (0.83-4.51); Basophil# 0.06 X10^3/uL; Basophil% 0.7 % (0-1); Eosinophil# 0.11 X10^3/uL; Eosinophils% 1.2 % (0-5); Hematocrit 35.8 % (37-47); Hemoglobin 12.1 g/dL (12.0-15.0); Lymphocyte # 3.13 X10^3/ul (0.83-4.51); Lymphocyte % 35.4 % (19-41); Mean Corp Hgb Conc 33.8 g/dL (32-36); Mean Corpuscular Hgb 31.3 pg (27.0-32.0); Mean Corpuscular Volume 92.5 fL (81-99); Mean Platelet Vol. 9.8 fl (6.2-12.0); Monocyte# 0.52 X10^3/uL; Monocyte% 5.9 % (0-10); NRBC Flagged by Analyzer 0 % (0-5); Neutrophil # 4.98 X10^3/uL (2.7-7.7); Neutrophil % 56.5 % (47-70); Platelet Count 284 K/mm3 (150-450); RBC Distribution Width CV 13.3 % (11.6-14.6); RBC Distribution Width SD 45.2 fl (35.1-43.9); Red Blood Count 3.87 M/mm3 (4.2-5.4); White Blood Count 8.8 K/mm3 (4.4-11.0)
[2023-02-16 16:26] LABS: Erythrocyte Sedimentation Rate 3 mm/hr (0-30)
[2023-02-16 17:08] LABS: Vitamin B12 348 pg/mL (211-911); Vitamin D,25 Hydroxy 33.3 ng/mL
[2023-02-16 17:27] LABS: ALB/GLOB Ratio 1.2 RATIO (0.9-2.4); AST(SGOT) 15 U/L (15-37); Alanine Aminotransfer ALT/SGPT 19 U/L (13-56); Albumin, Serum 3.5 g/dL (3.2-5.0); Alkaline Phosphatase 31 U/L (45-117); Anion Gap 1 (5-15); BUN 12 mg/dL (7-18); BUN/Creat Ratio 15.4 RATIO (10-20); CRP < 2.90 mg/L (0.0-3.0); Calcium,Total 8.3 mg/dL (8.5-10.1); Chloride 108 mmol/L (98-107); Creatinine, Serum 0.78 mg/dL (0.55-1.02); EST Glomerular Filtration Rate 84 mL/min (>60); Est Glom Filt Rate - Afr Amer 102 mL/min (>60); Glucose 88 mg/dL (74-106); Potassium 3.9 mmol/L (3.5-5.1); Protein, Total 6.5 g/dL (6.4-8.2); Sodium Level 138 mmol/L (136-145); Thyroid Stim Hormone (TSH) 1.04 uIU/mL (0.358-3.74)
[2023-02-18 13:08] LABS: ANTINUCLEAR ANTIBODIES DIRECT Negative (Negative)
== END | disposition home or self-care (01) ==
LOC: LAB 15:37
PROVIDERS: PCP Internal Medicine; Referring Provider Internal Medicine; Visit Provider Internal Medicine
DX: R53.83 Other fatigue (principal)
CPT/HCPCS: 36415; 80053; 82306; 82607; 84443; 85025; 85652; 86038; 86140

== ENCOUNTER → 2023-05-04 | Outpatient (CLI) | payer OTHER, SELFPAY ==
--- NOTE | 2023-05-04 11:43 | RAD_ITS ---
STUDY: X-RAY - LEFT ELBOW REASON FOR EXAM: Female, 48 years old. Elbow pain. TECHNIQUE: 3 view(s) of the elbow. COMPARISON: None. FINDINGS: Normal visualized humerus, radius and ulna. Normal radiocapitellar and ulnotrochlear articulations. Normal soft tissues. RAD/Elbow min 3 Views IMPRESSION: Normal x-ray examination of the elbow. Electronically Signed: Ki Schwab MD at 13:36 EDT ,
== END | disposition home or self-care (01) ==
PROVIDERS: PCP Internal Medicine; Referring Provider Physician Assistant; Visit Provider Physician Assistant
DX: M25.522 Pain in left elbow (principal)
CPT/HCPCS: 73080

== ENCOUNTER → 2024-02-08 | Outpatient (CLI) | payer OTHER, SELFPAY ==
[2024-02-08 09:19] LABS: ALB/GLOB Ratio 1.1 RATIO (0.9-2.4); AST(SGOT) 17 U/L (15-37); Alanine Aminotransfer ALT/SGPT 18 U/L (13-56); Albumin, Serum 3.3 g/dL (3.2-5.0); Alkaline Phosphatase 27 U/L (45-117); Anion Gap 2 (5-15); BUN 10 mg/dL (7-18); BUN/Creat Ratio 12.2 RATIO (10-20); Calcium,Total 8.3 mg/dL (8.5-10.1); Chloride 111 mmol/L (98-107); Cholesterol 193 mg/dL (200); Creatinine, Serum 0.82 mg/dL (0.55-1.02); EST Glomerular Filtration Rate 79 mL/min (>60); Est Glom Filt Rate - Afr Amer 96 mL/min (>60); Glucose 96 mg/dL (74-106); High Density Lipoprotein 84 mg/dL; Potassium 3.9 mmol/L (3.5-5.1); Protein, Total 6.3 g/dL (6.4-8.2); Sodium Level 140 mmol/L (136-145); Triglycerides 35 mg/dL; Very Low Density Lipoprotein 7 mg/dL (5-40)
== END | disposition home or self-care (01) ==
PROVIDERS: PCP Internal Medicine; Visit Provider Internal Medicine
DX: Z00.01 Encounter for general adult medical examination with abnormal findings (principal)
CPT/HCPCS: 36415; 80053; 80061

== ENCOUNTER 2024-03-12 12:24 | Day surgery (SDC) | payer OTHER, SELFPAY ==
[2024-03-12] VITALS (9 sets, daily range): BP systolic 114–123; BP diastolic 73–93; PULSE 55–95; RESP 14–16; TEMP 36.6–37.3; O2SAT 99–100; BMI 21.3
[2024-03-12] MEDS: Lactated Ringers 1,000 ML 15 ML IV (12:44)
--- NOTE | 2024-03-12 12:50 | PCM.HP.STD ---
[facility] - General General Date of Service: 03/12/24 Chief Complaint: Screening for intestinal cancer [facility] Narrative RICHARD LAM, is a 48 F who presents for screening colonoscopy today. She has never had a previous one. She presents via open access. The patient notes an extensive history of bright red rectal bleeding. She attributes this to hemorrhoids. She additionally carries a history of iron deficiency anemia. Family history is notable for colon polyps in her mother but no evidence of colon cancer [facility] Medical History (Updated 03/08/24 @ 11:27 by Lindsay Duran) Non-smoker Leg cramps History of echocardiogram Lipoma RLQ abdominal pain Iron deficiency anemia due to chronic blood loss D AND C WITH DIAGNOSTIC HYSTERSCOPY DVT (deep venous thrombosis) Home Medications ?Medication ?Instructions ?Recorded ?Last Taken ?Type acetaminophen 650 mg 650 mg PO Q6H PRN PRN Pain 06/07/18 Unknown History tablet,extended release (Tylenol 8 Hour) [id number]-epa-fish 1 cap PO DAILY 02/17/24 Unknown History oil 200 mcg-500 unit-200 mg cap Allergy/AdvReac Type Severity Reaction Status Date / Time No Known Allergies Allergy Verified 03/12/24 12:40 Family History (Updated 02/17/24 @ 15:47 by Xin Lauren) Father Hypertension High cholesterol Colon polyps Sister High cholesterol Thyroid disorder Mother Cancer skin Colon polyps Other No pertinent family history Surgical History History of excision of mass S/P total abdominal hysterectomy History of hernia repair Social History (Updated 02/17/24 @ 15:48 by Xin Lauren) household members: spouse current occupational status: employed current occupation: [employer] Smoking Status: Never smoker alcohol intake: never substance use type: does not use ROS Constitutional Constitutional: Reports systems reviewed and no addt'l complaints, except as documented Cardiovascular Cardiovascular: Denies chest pain Respiratory/Chest Respiratory/Chest: Denies shortness of breath at rest Gastrointestinal Gastrointestinal: Denies abdominal pain, change in bowel habits, hematochezia or melena Vital Signs Vital Signs Vital Signs: 03/12/24 12:42 03/12/24 12:42 Temperature 99 F Temperature Source Temporal Pulse Rate 95 Respiratory Rate 16 Respiratory Pattern Normal Blood Pressure 123/89 H Blood Pressure Mean 100 Blood Pressure Source Monitor Blood Pressure Position Semi-Fowlers Blood Pressure Location Left Arm Pulse Ox 99 Oxygen Delivery Method Room Air Weight Weight: 140 lb 3.424 oz Body Mass Index (BMI) 21.3 Physical Exam Const alert, oriented x3 and no apparent distress General Appearance: cooperative and comfortable Eyes General Eye: normal appearance of both eyes Neck General: normal visual inspection Chest inspection of chest normal Resp Effort and Inspection: able to speak in complete sentences and symmetric chest movement Auscultation: clear to auscultation bilaterally Cardio regular rate and regular rhythm GI soft to palpation, non-tender and non-distended Extremity no calf tenderness Neuro oriented x3 Psych thought process normal Assessment & Plan Assessment/Plan (1) Encounter for screening for malignant neoplasm of colon: PLAN: The patient presents via open access today for screening colonoscopy. She is aware of the technique, benefit, risk, alternatives. She had an opportunity to ask and have questions answered. We will proceed as noted. She is aware that we will inspect the hemorrhoidal disease today but not plan on definitive treatment. Toney Anaya M.D., F.A.C.S.
--- NOTE | 2024-03-12 12:58 | PCM.PRE.AN2 ---
ASA Classification* ASA Classification ASA Classification: 2 Assessment & Plan Anesthesia* Anesthesia Assessment Anesthesia Assessment: Discussed sedation and/or anesthesia options, risks, benefits, and alternatives with patient/parents/legal guardian/POA. Questions invited. The patient/parents/legal guardian/POA seems to understand and agrees to proceed with anesthesia plan. Reviewed the physical assessment, medical history, allergy history and patient home medications list prior to surgery/procedure/anesthetic and documented any changes. Performed airway and anesthesia risk assessments. Anesthesia Type Anesthesia Type: MAC Anesthesia Focused Assessment* Temperature: 99 F Pulse Rate: 95 Blood Pressure: 123/89 Respiratory Rate: 16 Pulse Ox: 99 Airway Assessment Mouth opens: >3 cm Mallampati Score: II Focused Labs Anesthesia Preop lab: CBC WBC 8.8 K/mm3 (4.4-11.0) 02/16/23 15:39 RBC 3.87 M/mm3 (4.2-5.4) L 02/16/23 15:39 Hgb 12.1 g/dL (12.0-15.0) 02/16/23 15:39 Hct 35.8 % (37-47) L 02/16/23 15:39 Plt Count 284 K/mm3 (150-450) 02/16/23 15:39 CHEMISTRY Potassium 3.9 mmol/L (3.5-5.1) 02/08/24 08:40 Sodium 140 mmol/L (136-145) 02/08/24 08:40 Magnesium 2.0 mg/dL (1.6-2.6) 05/31/18 16:30 Phosphorus 3.9 mg/dL (2.5-4.9) 02/17/22 08:40 BUN 10 mg/dL (7-18) 02/08/24 08:40 Creatinine 0.82 mg/dL (0.55-1.02) 02/08/24 08:40 Glucose 96 mg/dL (74-106) 02/08/24 08:40 TSH 1.04 uIU/mL (0.358-3.74) 02/16/23 15:39 COAG PT 15.2 SECONDS (11.7-14.9) H 05/29/18 11:45 HCG, Quant < 1 mIU/mL (<9 non-preg) 03/15/18 14:15 Pre-Assessment Diagnosis/Proposed Procedure Planned Operative Procedure(s): COLONOSCOPY Anesthesia History 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 When Was Last Pacemaker Check QUESTION #4 FULL TEXT: You/Your Family Experience fever (hyperthermia) with Anesthesia Last Oral Intake Last Oral intake: Last Oral Intake NPO since Meds taken in AM with sips of water? Meds patient instructed to take am of surgery PONV PONV - chief substation operator: PONV - chief substation operator Female Yes 03/08/24 11:27 HX of Motion Sickness Yes 03/08/24 11:27 HX of N/V After Surgery Yes 03/08/24 11:27 Non-Smoker No 03/08/24 11:27 Duration of Surgery greater No 03/08/24 11:27 than 60 minutes Number of Risk Factors 3 03/08/24 11:27 PONV Score Moderate Risk 03/08/24 11:27 Height & Weight Height & Weight: Anesthesia: Height & Weight Height 5 ft 8 in 03/12/24 12:42 Weight: 63.6 kg 03/12/24 12:42 Body Mass Index (BMI) 21.3 03/12/24 12:42 Respiratory Assessment Respiratory Assessment - chief substation operator: Respiratory Tract Infection Hx - chief substation operator Hx Respiratory Tract Infection No 03/08/24 11:27 STOP Sleep Apnea STOP Sleep Apnea - chief substation operator: STOP Sleep Apnea - chief substation operator Hx Hypertension No 03/08/24 11:27 Hx Sleep Apnea No 03/08/24 11:27 CPAP No 09/07/21 14:21 BIPAP No 09/07/21 14:21 Do you snore loudly (louder No 03/08/24 11:27 than talking or can be heard Do you often feel tired/ No 03/08/24 11:27 fatigued/ sleepy during daytime? Has anyone observed you stop No 03/08/24 11:27 breathing during sleep? STOP Results Negative 03/08/24 11:27 QUESTION #5 FULL TEXT : Do you snore loudly (louder than talking or can be heard through closed doors)? 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 Specify any problems Hx of Preganancy in last 3 No 03/08/24 11:27 Months Nurse Filling Out Transfusion GONZÁLEZ 03/08/24 11:27 & Questions: Date: 03/08/24 03/08/24 11:27 Time: 11:29 03/08/24 11:27 Patient unable to answer at this time (ie. confused, unrespo /Reproduction History /Reproductive History - chief substation operator: /Reproductive Hx- chief substation operator Hx Now No 03/08/24 11:27 Gestational Age (in weeks): EDC: Hx Hx Para Hx Section SAB No 03/08/24 11:27 Active Medications Active Medications: Current Medications Generic Name Dose Route Start Last Admin Trade Name Freq PRN Reason Stop Dose Admin Lactated Ringer's 1,000 mls @ 15 mls/hr 03/12/24 12:45 03/12/24 12:44 IV 15 mls/hr .Q48H CALIXTO Administration PFSH Medical History (Updated 03/08/24 @ 11:27 by Lindsay Duran) Non-smoker Leg cramps History of echocardiogram Lipoma RLQ abdominal pain Iron deficiency anemia due to chronic blood loss D AND C WITH DIAGNOSTIC HYSTERSCOPY DVT (deep venous thrombosis) Home Medications ?Medication ?Instructions ?Recorded ?Last Taken ?Type acetaminophen 650 mg 650 mg PO Q6H PRN PRN Pain 06/07/18 Unknown History tablet,extended release (Tylenol 8 Hour) [id number]-epa-fish 1 cap PO DAILY 02/17/24 Unknown History oil 200 mcg-500 unit-200 mg cap Allergy/AdvReac Type Severity Reaction Status Date / Time No Known Allergies Allergy Verified 03/12/24 12:40 Family History (Updated 02/17/24 @ 15:47 by Xni Lauren) Father Hypertension High cholesterol Colon polyps Sister High cholesterol Thyroid disorder Mother Cancer skin Colon polyps Other No pertinent family history Surgical History History of excision of mass S/P total abdominal hysterectomy History of hernia repair Social History (Updated 02/17/24 @ 15:48 by Xin Lauren) household members: spouse current occupational status: employed current occupation: [employer] Smoking Status: Never smoker alcohol intake: never substance use type: does not use Review of Systems (Anesthesia) ROS Narrative System reviewed and no additional complaints, except as documented.
--- NOTE | 2024-03-12 13:30 | COLBX_PTH ---
PATIENT: RICHARD LAM LOC: EN U#:[id number] AGE/SX: 48/F ROOM: RE03/12/[address]: Dr. Toney Anaya MD : 1975 BED: DIS: 03/12/2024 SPEC #: [id number] RECD: 03/13/24 07:24 STATUS: VONNIE REZeb #: [id number] JULIA: 03/12/24 13:[address]: Toney Anaya DEPT: SURGICAL PATHOLOGY RECD BY: Lisa Cruz ENTERED: 03/13/24 09:50 SP TYPE: COLON BX OTHR DR: Dr. Anitra Cross DO Tissues: A - Cecum, NOS B - Cecum, NOS C - Cecum, NOS Procedures: Surgery Specimen Level IV HEADER OPERATION: Colonoscopy, polypectomy and biopsy PRE-OP DIAGNOSIS: Encounter for screening for malignant neoplasm of colon TISSUE SUBMITTED: A- 4.0 mm sessile polyp cecum, B- 7.0mm sessile polyp cecum, C- Ileo-cecal valve biopsy MICROSCOPIC DIAGNOSIS A. 4.0mm sessile polyp cecum, polypectomy: A fragment of colonic mucosa, no pathologic diagnosis. B. 7.0mm sessile polyp cecum, polypectomy: Fragments of colonic mucosa, no pathologic diagnosis. C. Ielo-cecal valve, biopsy: Fragments of small intestinal mucosa with acute inflammation. See comment. LA/ 03/14/2024 COMMENT C. Focal cryptitis is noted. Significant glandular distortion or granulomas are not seen. Correlation with clinical, endoscopic findings and appropriate follow up are necessary. MICROSCOPIC DESCRIPTION Slides are reviewed. GROSS DESCRIPTION A. Received in fixative is one container labeled with the patient's name and designated 4.0mm sessile polyp cecum. The specimen consists of one irregular fragment of light plasencia soft tissue that measures 0.3 x 0.2 x 0.1 cm. The specimen is totally submitted in one cassette. B. Received in fixative is one container labeled with the patient's name and designated 7mm sessile polyp cecum. The specimen consists of multiple irregular fragments of light plasencia soft tissue that in aggregate measure 0.6 x 0.3 x 0.1 cm. The specimen is totally submitted in one cassette. C. Received in fixative is one container labeled with the patient's name and designated Ielo-cecal valve biopsy. The specimen consists of two irregular fragments of light plasencia soft tissue that in aggregate measure 0.4 x 0.2 x 0.1 cm. The specimen is totally submitted in one cassette. Zoila 03/13/2024 TC:2 CPT:98866o6
--- NOTE | 2024-03-12 14:13 | OP.COLON_ITS ---
Patient Name: Nathalie Talley Procedure Date: 03/12/2024 1:31 PM Date of : 1975 Age: 48 Procedure: Colonoscopy Indications: Screening for colorectal malignant neoplasm Providers: Toney Anaya MD Referring MD: Anitra Cross Medicines: See the Anesthesia note for documentation of the administered medications Patient Profile: Last Colonoscopy: none. The patient's first colonoscopy is today. Complications: No immediate complications. Procedure: Pre-Anesthesia Assessment: - Prior to the procedure, a History and Physical was performed, and patient medications and allergies were reviewed. The patient's tolerance of previous anesthesia was also reviewed. The risks and benefits of the procedure and the sedation options and risks were discussed with the patient. All questions were answered, and informed consent was obtained. Prior Anticoagulants: The patient has taken no anticoagulant or antiplatelet agents. ASA Grade Assessment: I - A normal, healthy patient. After reviewing the risks and benefits, the patient was deemed in satisfactory condition to undergo the procedure. After I obtained informed consent, the scope was passed under direct vision. Throughout the procedure, the patient's blood pressure, pulse, and oxygen saturations were monitored continuously. The adult colonoscope was introduced through the anus and advanced to the cecum, identified by appendiceal orifice and ileocecal valve. The colonoscopy was performed without difficulty. The ileocecal valve and the appendiceal orifice were photographed. Scope In: 1:40:55 PM Scope Withdrawal Time 0 hours 16 minutes 1 second Scope Out: 2:05:29 PM Total Procedure Duration Time 0 hours 24 minutes 34 seconds Findings: The digital rectal exam findings include non-thrombosed external hemorrhoids, non-thrombosed internal hemorrhoids and internal hemorrhoids that prolapse with straining, but spontaneously regress to the resting position (Grade II). Pertinent negatives include normal sphincter tone. A 4 mm polyp was found in the cecum. The polyp was sessile. The polyp was removed with a cold biopsy forceps. Resection and retrieval were complete. A 7 mm polyp was found in the cecum. The polyp was sessile. The polyp was removed with a hot snare. Resection and retrieval were complete. A localized area of mildly erythematous mucosa was found at the ileocecal valve. Biopsies were taken with a cold forceps for histology. The exam was otherwise without abnormality. Impression: - Non-thrombosed external hemorrhoids, non-thrombosed internal hemorrhoids and internal hemorrhoids that prolapse with straining, but spontaneously regress to the resting position (Grade II) found on digital rectal exam. - One 4 mm polyp in the cecum, removed with a cold biopsy forceps. Resected and retrieved. - One 7 mm polyp in the cecum, removed with a hot snare. Resected and retrieved. - Erythematous mucosa at the ileocecal valve. Biopsied. - The examination was otherwise normal. Recommendation: - Discharge patient to home. - Resume previous diet. - Continue present medications. - Repeat colonoscopy in 5 years for surveillance. - Telephone my office for pathology results in 1 week. Combination of internal and external hemorrhoids. Most definitive treatment would be surgical hemorrhoidectomy. No active bleeding at this time. Procedure Code(s): --- Professional --- 69218, Colonoscopy, flexible; with removal of tumor(s), polyp(s), or other lesion(s) by snare technique 27636, 59, Colonoscopy, flexible; with biopsy, single or multiple Diagnosis Code(s): --- Professional --- Z12.11, Encounter for screening for malignant neoplasm of colon K64.1, Second degree hemorrhoids K64.4, Residual hemorrhoidal skin tags D12.0, Benign neoplasm of cecum K63.89, Other specified diseases of intestine CPT copyright 2021 [employer]. All rights reserved. The codes documented in this report are preliminary and upon chief drafter review may be revised to meet current compliance requirements. Toney Anaya MD 03/12/2024 2:13:10 PM This report has been signed electronically. Number of Addenda: 0 Note Initiated On: 03/12/2024 1:31 PM
--- NOTE | 2024-03-12 14:14 | OP.CCLET_ITS ---
03/12/2024 Anitra Cross [address] [place] [address] Re : Colonoscopy procedure for Nathalie Talley Dear Dr. Cross This procedure was performed on Tuesday, March 12, 2024. My impressions and recommendations are as follows: Impressions : - Non-thrombosed external hemorrhoids, non-thrombosed internal hemorrhoids and internal hemorrhoids that prolapse with straining, but spontaneously regress to the resting position (Grade II) found on digital rectal exam. - One 4 mm polyp in the cecum, removed with a cold biopsy forceps. Resected and retrieved. - One 7 mm polyp in the cecum, removed with a hot snare. Resected and retrieved. - Erythematous mucosa at the ileocecal valve. Biopsied. - The examination was otherwise normal. Recommendations : - Discharge patient to home. - Resume previous diet. - Continue present medications. - Repeat colonoscopy in 5 years for surveillance. - Telephone my office for pathology results in 1 week. Combination of internal and external hemorrhoids. Most definitive treatment would be surgical hemorrhoidectomy. No active bleeding at this time. My findings are described in the full procedure note, which is enclosed. If I can be of further assistance, please feel free to contact me at Doctor phone number(s): Work: . Sincerely, Toney Anaya MD 03/12/2024 2:13:10 PM This report has been signed electronically.
--- NOTE | 2024-03-12 14:15 | PCM.POST.ANE ---
Anesthesia: Postop Eval I Current Vital Signs Temperature: 98 F Pulse Rate: 84 Blood Pressure: 117/77 Respiratory Rate: 16 Pulse Ox: 100 Oxygen Delivery Method: Room Air Assessment Airway patent: Yes Spontaneous unlabored respirations: Yes Mental status: Awake and Calm nausea: No Vomiting: No Anesthesia Complication: No Fluid Hydration Crystalloid volume administer (ml): 800 Total IV fluid infused: 800 Progress Note Anesthesia document: Postop Eval 1 completed: Yes
--- NOTE | 2024-03-12 15:10 | PCM.POSTANE2 ---
Anesthesia Postop Eval I Sum Postop Eval Completion status Anesthesia document: Postop Eval 1 completed: Yes Anesthesia Postop Eval I Summary Anesthesia Postop Eval I Summary: Anesthesia Postop Eval I: Assessment Summary Airway patent Yes 03/12/24 14:16 [email or web address] Spontaneous unlabored Yes 03/12/24 14:16 [email or web address] respirations Mental status Awake,Calm 03/12/24 14:16 [email or web address] nausea No 03/12/24 14:16 [email or web address] Vomiting No 03/12/24 14:16 [email or web address] Anesthesia Postop Eval I: Fluid Summary Crystalloid volume administer 800 03/12/24 14:16 [email or web address] (ml) Colloids volume administered ( ml) Blood Product volume administered (ml) Total IV fluid infused 800 03/12/24 14:16 [email or web address] Anesthesia Postop Eval I: Summary Notes Anesthesia Complication No 03/12/24 14:16 [email or web address] Anesthesia Complication Comment: Post-operative progress note Anesthesia: Postop Eval II Evaluation Mental status: Awake and Calm Pain Level: 0 nausea: No Vomiting: No Complications Anesthesia Complication: No
== END 2024-03-12 15:17 | disposition home or self-care (01) ==
LOC: EN 12:25 → AC 12:27
PROVIDERS: PCP Internal Medicine; Referring Provider Internal Medicine; Visit Provider Surgery
PROC: 0DJD8ZZ Inspection of Lower Intestinal Tract, Via Natural or Artificial Opening Endoscopic (ICD-10-PCS; CPT 45378; principal; 2024-03-12 13:25)
DX: Z12.11 Encounter for screening for malignant neoplasm of colon (principal); K64.4 Residual hemorrhoidal skin tags; K63.5 Polyp of colon; Z83.719 Family history of colon polyps, unspecified; K64.1 Second degree hemorrhoids; K62.89 Other specified diseases of anus and rectum
CPT/HCPCS: 45380; 45385; 88305; J7120; J2405

== ENCOUNTER → 2024-03-26 | Outpatient (CLI) | payer OTHER, SELFPAY ==
--- NOTE | 2024-03-26 14:16 | BI_ITS ---
MAMMOGRAPHY - BILATERAL SCREENING REASON FOR EXAM: Female, 49 years old. Routine annual screening examination. PERTINENT HISTORY: Non-contributory. TECHNIQUE: Digital bilateral breast matheus (3D mammographic acquisition) in the CC and MLO projections. 2-D mediolateral oblique (MLO) and craniocaudad (CC) views of both breasts were obtained. CAD: Full Field Digital Mammography with Computer Added Detection was performed. COMPARISON: Comparison is made with prior study dated May 26, 2020 and July 30, 2021. FINDINGS: Breast Composition: The breasts are extremely dense, which lowers the sensitivity of mammography. There are no dominant masses or suspicious calcifications. No other significant abnormalities are identified. There has been no significant change since the prior study. BI/SCRN MAMM (CAD)W/MATHEUS BILAT IMPRESSION: Stable bilateral screening mammogram. Yearly follow-up mammogram recommended. (A) ASSESSMENT CATEGORY: BIRADS Category 1: Negative. A letter regarding these results will be sent to the patient by the facility within 30 days. Approximately 10% of breast cancers are not detected by mammography. A normal mammogram should not delay biopsy of a clinically suspicious abnormality. [id number] Electronically Signed: Tony Sharif MD at 15:10 EDT ,
== END | disposition home or self-care (01) ==
PROVIDERS: PCP Internal Medicine; Referring Provider Internal Medicine; Visit Provider Internal Medicine
DX: Z12.31 Encounter for screening mammogram for malignant neoplasm of breast (principal)
CPT/HCPCS: 77063; 77067

== ENCOUNTER → 2025-06-11 | Outpatient (CLI) | payer OTHER, SELFPAY ==
--- NOTE | 2025-06-11 16:00 | BI_ITS ---
EXAM: SCRN MAMM (CAD)W/MATHEUS BILAT DATE: 06/11/2025 CLINICAL HISTORY: F, Age 50 y/o , SCRN MAMM (CAD)W/MATHEUS BILAT No family history. TECHNIQUE: Procedure Code: [id number] Modality: MG Procedure: SCRN MAMM (CAD)W/MATHEUS BILAT COMPARISON: Prior exam(s) dated March 26, 2024.. FINDINGS: TISSUE DENSITY: The breasts are extremely dense, which lowers the sensitivity of mammography. Bilateral Breast Mammographic Findings: No significant masses, calcifications or other abnormalities are identified. No suspicious masses, areas of developing architectural distortion, or suspicious calcifications. There has been no significant interval change. BI/SCRN MAMM (CAD)W/MATHEUS BILAT IMPRESSION: Stable bilateral screening mammogram. OVERALL FINAL ASSESSMENT BI-RADS 1: NEGATIVE. RECOMMENDATION: Routine annual follow-up in 1 Year Additional Recommendation none A letter with findings and recommendations will be mailed to the patient. Reading Location: [place] [address]
--- OUTSIDE RECORDS SUMMARY | 2025-06-11 16:19 | XMS RPT_ITS | CCD ---
Author Organization [facility] Care Team Providers Care Vocational Nurse Name Role Phone Dr. Toney Anaya Attending Provider [phone] Dr. Yady Donato Referring Provider Dr. Latisha Rhodes Primary Care Provider Dr. Latisha Rhodes Referring Provider Nurse, Surgery Attending Provider Unavailable DAVID Metcalf Attending Provider [phone] Dr. Latisha Rhodes Primary Care Provider Dr. Toney Anaya Attending Provider Anitra Cross DO Unavailable Toney Anaya MD Unavailable Jackie Ortega MA Unavailable Unavailable Anitra Cross Referring Unavailable Anitra Cross Attending Unavailable Anitra Cross Primary Care Unavailable Medications Current Medications Medication Drug Class(es) Dates Sig (Normalized) Sig (Original) 8 hr acetaminophen 650 mg extended release oral tablet (6 sources) Start: 06-07-2018 take 1 tablet by mouth every six hours as needed Acetaminophen (Tylenol 8 Hour) 650 MG tablet extended release Active 650 MG PO EVERY 6 HOURS NEEDED June 07, 2018 12:00am Multivitamin (Multiple Vitamins) 1 EACH tablet (6 sources) Start: 04-26-2018 take 1 tablet by mouth once daily Multivitamin (Multiple Vitamins) 1 EACH tablet Active 1 EACH PO DAILY April 26, 2018 1:14pm Start: 04-26-2018 take 1 tablet by caty once daily Multivitamin (Multiple Vitamins) 1 EACH tablet Active 1 EACH PO DAILY April 26, 2018 12:00am Completed/Discontinued Medications Medication Drug Class(es) Dates Sig (Normalized) Sig (Original) acetaminophen 300 mg / HYDROcodone bitartrate 5 mg oral tablet (12 sources) Opioid Agonist Start: 06-02-2018 End: 06-09-2018 take 1 tablet by mouth every four hours as needed Hydrocodone-Acetami nophen (Vicodin 5-300 Mg Tablet) 1 EACH tablet Discontinued 1 TABLET PO EVERY 4 HOURS NEEDED 30 June 02, 2018 12:00am June 09, 2018 12:11am Start: 07-25-2014 End: 07-26-2014 take 1 tablet by mouth every four hours as needed Hydrocodone-Acetaminophen Discontinued 1 TABLET PO EVERY 4 HOURS NEEDED July 25, 2014 1:00am July 26, 2014 4:51pm 1 ml medroxyPROGESTERone acetate 150 mg/ml prefilled syringe (6 sources) Progestin Start: 05-29-2018 End: 06-02-2018 inject 150 mg by intramuscular injection every three months Medroxyprogesterone Discontinued 150 MG IM .[id number] May 29, 2018 12:00am June 02, 2018 9:53am received 03/17/18 rivaroxaban 15 mg oral tablet (6 sources) Factor Xa Inhibitor Start: 03-29-2018 End: 05-30-2018 Rivaroxaban (Xarelto) 15 MG tablet Discontinued 20 MG PO DAILY March 29, 2018 12:00am May 30, 2018 1:05pm valACYclovir 1000 mg oral tablet (6 sources) Herpesvirus Nucleoside Analog DNA Polymerase Inhibitor, Herpes Simplex Virus Nucleoside Analog DNA Polymerase Inhibitor, Herpes Zoster Virus Nucleoside Analog DNA Polymerase Inhibitor Start: 03-25-2020 End: 08-10-2021 take 2 tablets by mouth twice daily as needed Valacyclovir Discontinued 1000 MG PO TWICE A DAY 60 March 25, 2020 12:00am August 10, 2021 2:33pm Take 2 tabs twice daily as needed for cold sore outbreak. May take 1000mg daily for prophylactic. 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] Episodic Abdominal pain (6 sources) Right lower quadrant pain; Translations: [Right lower quadrant pain] 08-10-2021 Episodic Deficiency and other anemia (12 sources) Anemia; Translations: [Anemia, unspecified] 01-18-2019 Episodic Deficiency and other anemia (6 sources) Iron deficiency anemia; Translations: [Iron deficiency anemia, unspecified] 01-18-2019 Episodic Inflammation; infection of eye (except that caused by tuberculosis or sexually transmitteddisease) (12 sources) Hordeolum externum of upper eyelid; Translations: [Hordeolum externum right upper eyelid] 07-16-2020 Episodic Malaise and fatigue (10 sources) Fatigue; Translations: [Fatigue] 02-14-2023 Episodic Menstrual disorders (20 sources) Menometrorrhagia; Translations: [Excessive and frequent menstruation with irregular cycle] 01-18-2019 Chronic Nonmalignant breast conditions (7 sources) Fibrocystic disease of breast; Translations: [Diffuse cystic mastopathy of unspecified breast] Chronic Other and unspecified benign neoplasm (6 sources) Lipoma (clinical); Translations: [Benign lipomatous neoplasm, unspecified] 09-14-2021 Episodic Other and unspecified benign neoplasm (6 sources) Leiomyoma; Translations: [Benign neoplasm of connective and other soft tissue, unspecified] 01-31-2020 Episodic Other and unspecified benign neoplasm (5 sources) Benign lipomatous neoplasm, unspecified; Translations: [Lipoma, unspecified site] Episodic Other female genital disorders (6 sources) Lesion of endometrium; Translations: [Other specified conditions associated with female genital organs and menstrual cycle] 01-18-2019 Episodic Other screening for suspected conditions (not mental disorders or infectious disease) (15 sources) Patient encounter status; Translations: [Colon cancer screening (Renamed from Encounter for screening for malignant neoplasm of colon)] Onset: 06-03-2025 02-14-2023 Episodic Phlebitis; thrombophlebitis and thromboembolism (6 sources) Acute deep venous thrombosis of calf; Translations: [Acute embolism and thrombosis of unspecified deep veins of unspecified distal lower extremity] 01-18-2019 Episodic Past or Other Problems Problem Classification Problem Date Documented Da te Episodic/Chronic Unclassified (3 sources) D AND C WITH DIAGNOSTIC HYSTERSCOPY 03-20-2022 Unclassified (5 sources) Results Test Name Value Interpretation Reference Range Facility Absolute lymphocyte countOrd ered By: Anitra Cross on 02-16-2023 Lymphocytes Auto (Unsp spec) [#/Vol] 3.13 10*3/uL 0.83-4.51 [facility] Basophil percentageOrdered B y: Anitra Cross on 02-16-2023 Basophils/100 WBC (Bld) 0.7 % 0-1 [facility] Bilirubin [Mass/Vol] 0.40 mg/dL 0.20-1.00 [facility] Comment on above: For patients on eltr ombopag therapy, use of Dimension [place] TBIL is not recommended. Chloride [Moles/Vol] 108 mmol/L 98-107 [facility] Eosinophils/100 WBC (Bld) 1.2 % 0-5 [facility] Glucose [Mass/Vol] 88 mg/dL 74-106 [facility] Neutrophils (Bld) [#/Vol] 5.0 10*3/uL 2.0-7.7 [facility] Neutrophils/100 WBC (Bld) 56.5 % 47-70 [facility] Potassium [Moles/Vol] 3.9 mmol/L 3.5-5.1 [facility] Protein [Mass/Vol] 6.5 g/dL 6.4-8.2 [facility] Sodium [Moles/Vol] 138 mmol/L 136-145 [facility] WBC (Bld) [#/Vol] 8.8 10*3/uL 4.4-11.0 [facility] Blood erythrocytes count (nu mber/volume)Ordered By: Anitra Cross on 02-16-2023 RBC (Bld) [#/Vol] 3.87 10*6/uL 4.2-5.4 [facility] Blood hemoglobin measurement (mass/volume)Ordered By: Anitra Cross on 02-16-2023 Hemoglobin (Bld) [Mass/Vol] 12.1 g/dL 12.0-15.0 [facility] Blood lymphocytes/100 leukoc ytesOrdered By: Anitra Cross on 02-16-2023 Lymphocytes/100 WBC (Bld) 35.4 % 19-41 [facility] Blood monocytes/100 leukocyt esOrdered By: Anitra Cross on 02-16-2023 Monocytes/100 WBC (Bld) 5.9 % 0-10 [facility] Blood platelet mean volumeOr dered By: Anitra Cross on 02-16-2023 Platelet mean volume (Bld) [Entitic vol] 9.8 fL 6.2-12.0 [facility] Determination of erythrocyte mean corpuscular volume (MCV)Ordered By: Anitra Cross on 02-16-2023 MCV (RBC) [Entitic vol] 92.5 fL 81-99 [facility] Erythrocyte sedimentation ra teOrdered By: Anitra Cross on 02-16-2023 ESR (Bld) [Velocity] 3 mm/h 0-30 [facility] Hematocrit Auto (Bld) [Volum e fraction]Ordered By: Anitra Cross on 02-16-2023 Hematocrit (Bld) [Volume fraction] 35.8 % 37-47 [facility] Laboratory - Chemistry and C hemistry - challengeOrdered By: Anitra Cross on 02-16-2023 ALP [Catalytic activity/Vol] 31 U/L 45-117 [facility] ALT [Catalytic activity/Vol] 19 U/L 13-56 [facility] CO2 [Moles/Vol] 29.0 mmol/L 21.0-32.0 [facility] Cobalamin (Vitamin B12) [Mass/Vol] 348 pg/mL 211-911 [facility] Globulin (S) [Mass/Vol] 3.0 g/dL 2.2-4.2 [facility] Urea nitrogen/Creatinine [Mass ratio] 15.4 mg/mg 10-20 [facility] Laboratory - Hematology and Cell countsOrdered By: Anitra Cross on 02-16-2023 Erythrocyte distribution width (RBC) [Entitic vol] 45.2 fL 35.1-43.9 [facility] Erythrocyte distribution width (RBC) [Ratio] 13.3 % 11.6-14.6 [facility] Immature granulocytes/100 WBC (Bld) 0.300 % 0.0-0.9 [facility] Comment on above: IG% - Immature Granu locytes (promyelocytes, myelocytes and metamyelocytes) > 1% indicates that a LEFT SHIFT is Present. MCH (RBC) [Entitic mass] 31.3 pg 27.0-32.0 [facility] Nucleated RBC/100 WBC (Bld) [Ratio] 0 % 0-5 [facility] Auto (RBC) [Mass/Vol]Or dered By: Anitra Cross on 02-16-2023 MCHC (RBC) [Mass/Vol] 33.8 g/dL 32-36 [facility] No Panel InformationOrdered By: Anitra Cross on 02-16-2023 Anti-Nuclear Antibody Screen Negative Negative [facility] Comment on above: Performed at: [address] [id number] Director: Fidel Buenrostro PhD, Phone: [phone] Estimated GFR (MDRD) Amer 102 mL/min >60 [facility] Comment on above: GFR Calc Estimated GFR (MDRD) Non-Af Amer 84 mL/min >60 [facility] Comment on above: Non- GFR Calc Thyroid Stimulating Hormone (TSH) 1.04 uIU/mL 0.358-3.74 [facility] Vitamin D 25-Hydroxy 33.3 ng/mL [facility] Comment on above: Vitamin D 25(OH) Sta tus Range Deficiency <20 ng/mL (50nmol/L) Insufficiency 20 - 30 ng/mL (50 - 75 nmol/L) Sufficiency 30 - 100 ng/mL (75 - 250 nmol/L) Toxicity >100 ng/mL (>250 nmol/L) Platelets bldOrdered By: Marium Cross on 02-16-2023 Platelets (Bld) [#/Vol] 284 10*3/uL 150-450 [facility] Serum or plasma C reactive p rotein measurement (mass/volume)Ordered By: Anitra Cross on 02-16-2023 CRP [Mass/Vol] mg/L 0.0-3.0 [facility] Comment on above: C-Reactive Protein ( CRP) provides useful information for thediagnosis, therapy and monitoring of inflammatory processesand associated diseases. For the evaluation of Relative Riskfor Cardiovascular Disease, a High Sensitivity CRP (HSCRP)should be ordered. Serum or plasma albumin yasmany urement (mass/volume)Ordered By: Anitra Cross on 02-16-2023 Albumin [Mass/Vol] 3.5 g/dL 3.2-5.0 [facility] Serum or plasma albumin/glob ulin mass ratioOrdered By: Anitra Cross on 02-16-2023 Albumin/Globulin [Mass ratio] 1.2 {ratio} 0.9-2.4 [facility] Serum or plasma calcium yasmany urement (mass/volume)Ordered By: Anitra Cross on 02-16-2023 Calcium [Mass/Vol] 8.3 mg/dL 8.5-10.1 [facility] Serum or plasma creatinine m easurement (mass/volume)Ordered By: Anitra Cross on 02-16-2023 Creatinine [Mass/Vol] 0.78 mg/dL 0.55-1.02 [facility] Comment on above: The validity of the calculated GFR & GFRAA in patients over 70 years has not been determined. Clinical correlation is essential. Serum or plasma urea nitroge n measurement (mass/volume)Ordered By: Anitra Cross on 02-16-2023 Urea nitrogen [Mass/Vol] 12 mg/dL 7-18 [facility] Thin prep Papanicolaou smear with manual screeningOrdered By: Anitra Cross on 02-16-2023 Thin prep Papanicolaou smear with manual screening 15 U/L 15-37 [facility] Thin prep Papanicolaou smear with manual screening 1 5-15 [facility] Basophil percentageOrdered B y: Dr. Kumari on 02-01-2023 Cholesterol [Mass/Vol] 199 mg/dL <200 [facility] Comment on above: <200 mg/dL Desirable 200-240 mg/dL Borderline >240 mg/dL High Risk Glucose [Mass/Vol] 97 mg/dL 74-106 [facility] Triglyceride [Mass/Vol] 49 mg/dL <199 [facility] Comment on above: The drugs N-Acetylcy steine and Metamizole may falsely depress this assay.Serum Triglycerides Reference Interval Normal <150 mg/dL Borderline high 150 - 199 mg/dL High 200 - 499 mg/dL Very High > or = 500 mg/dL Serum or plasma cholesterol in HDL measurement (mass/volume)Ordered By: Dr. Kumari on 02-01-2023 Cholesterol in HDL [Mass/Vol] 85 mg/dL >40 [facility] Comment on above: The drugs N-Acetylcy steine and Metamizole may falsely depress this assay. Reference Range HDL <40 mg/dL Low HDL Cholesterol HDL >or= 60 mg/dL High HDL Cholesterol Serum or plasma cholesterol in VLDL measurement (mass/volume)Ordered By: Dr. Kumari on 02-01-2023 Cholesterol in VLDL [Mass/Vol] 10 mg/dL 5-40 [facility] Serum or plasma low density lipoprotein (LDL) cholesterol measurement (mass/volume)Ordered By: Dr. Kumari on 02-01-2023 Cholesterol in LDL [Mass/Vol] 104 mg/dL 0-130 [facility] Absolute lymphocyte counton 02-17-2022 Lymphocytes Auto (Unsp spec) [#/Vol] 2.99 10*3/uL 0.83-4.51 [facility] Work Phone: Absolute reticulocyte counto n 02-17-2022 Reticulocytes (Bld) [#/Vol] 0.00 10*3/uL 0-5 [facility] Work Phone: Basophil percentageon 2021 Basophil percentage 3.9 mg/dL 2.5-4.9 [facility] Work Phone: Bilirubin [Mass/Vol] 0.60 mg/dL 0.20-1.00 [facility] Work Phone: Comment on above: For patients on eltr ombopag therapy, use of Dimension [place] TBIL is not recommended. Chloride [Moles/Vol] 110 mmol/L 98-107 [facility] Work Phone: Cholesterol [Mass/Vol] 214 mg/dL <200 [facility] Work Phone: Comment on above: <200 mg/dL Desirable 200-240 mg/dL Borderline >240 mg/dL High Risk Glucose [Mass/Vol] 102 mg/dL 74-106 [facility] Work Phone: Comment on above: Fasting Glucose resu lt from 100 to 125 mg/dL suggests IMPAIRED HOMEOSTASIS per A.D.A. criteria. Neutrophils (Bld) [#/Vol] 2.9 10*3/uL 2.0-7.7 [facility] Work Phone: Potassium [Moles/Vol] 3.9 mmol/L 3.5-5.1 [facility] Work Phone: Protein [Mass/Vol] 6.6 g/dL 6.4-8.2 [facility] Work Phone: Sodium [Moles/Vol] 140 mmol/L 136-145 [facility] Work Phone: Triglyceride [Mass/Vol] 46 mg/dL <199 [facility] Work Phone: Comment on above: The drugs N-Acetylcy steine and Metamizole may falsely depress this assay.Serum Triglycerides Reference Interval Normal <150 mg/dL Borderline high 150 - 199 mg/dL High 200 - 499 mg/dL Very High > or = 500 mg/dL WBC (Bld) [#/Vol] 6.7 10*3/uL 4.4-11.0 [facility] Work Phone: Bilirubin Test strip Ql (U)o n 02-17-2022 Bilirubin Ql (U) Negative Negative [facility] Work Phone: Blood erythrocytes count (nu mber/volume)on 02-17-2022 RBC (Bld) [#/Vol] 4.02 10*6/uL 4.2-5.4 [facility] Work Phone: Blood hemoglobin measurement (mass/volume)on 02-17-2022 Hemoglobin (Bld) [Mass/Vol] 12.3 g/dL 12.0-15.0 [facility] Work Phone: Blood platelet mean volumeon 02-17-2022 Platelet mean volume (Bld) [Entitic vol] 9.6 fL 6.2-12.0 [facility] Work Phone: Determination of erythrocyte mean corpuscular volume (MCV)on 02-17-2022 MCV (RBC) [Entitic vol] 91.3 fL 81-99 [facility] Work Phone: Direct bilirubinon Bilirubin.direct [Mass/Vol] 0.18 mg/dL 0.00-0.30 [facility] Work Phone: Hematocrit Auto (Bld) [Volum e fraction]on 02-17-2022 Hematocrit (Bld) [Volume fraction] 36.7 % 37-47 [facility] Work Phone: Ketones Test strip Ql (U)on 02-17-2022 Ketones Ql (U) Negative Negative [facility] Work Phone: Laboratory - Chemistry and C hemistry - challengeon 02-17-2022 ALP [Catalytic activity/Vol] 28 U/L 45-117 [facility] Work Phone: ALT [Catalytic activity/Vol] 19 U/L 13-56 [facility] Work Phone: Cholesterol.total/Lyndsay sterol in HDL [Mass ratio] 2.40 {ratio} [facility] Work Phone: CO2 [Moles/Vol] 26.0 mmol/L 21.0-32.0 [facility] Work Phone: Globulin (S) [Mass/Vol] 3.1 g/dL 2.2-4.2 [facility] Work Phone: Urea nitrogen/Creatinine [Mass ratio] 16.6 mg/mg 10-20 [facility] Work Phone: Laboratory - Hematology and Cell countson 02-17-2022 Erythrocyte distribution width (RBC) [Entitic vol] 43.0 fL 35.1-43.9 [facility] Work Phone: Erythrocyte distribution width (RBC) [Ratio] 13.0 % 11.6-14.6 [facility] Work Phone: MCH (RBC) [Entitic mass] 30.6 pg 27.0-32.0 [facility] Work Phone: Nucleated RBC/100 WBC (Bld) [Ratio] 0 % 0-5 [facility] Work Phone: MCHC Auto (RBC) [Mass/Vol]on 02-17-2022 MCHC (RBC) [Mass/Vol] 33.5 g/dL 32-36 [facility] Work Phone: Nitrite Test strip Ql (U)on 02-17-2022 Nitrite Ql (U) Negative Negative [facility] Work Phone: No Panel Informationon 02-17 Estimated GFR (MDRD) Amer 102 mL/min >60 [facility] Work Phone: Comment on above: GFR Calc Estimated GFR (MDRD) Non-Af Amer 84 mL/min >60 [facility] Work Phone: Comment on above: Non- GFR Calc Platelets bldon 02-17-2022 Platelets (Bld) [#/Vol] 279 10*3/uL 150-450 [facility] Work Phone: Protein Test strip Ql (U)on 02-17-2022 Protein Ql (U) 15 mg/dl Negative [facility] Work Phone: Segmented neutrophils/100 WB C Auto (Bld)on 02-17-2022 Segmented neutrophils/100 WBC (Bld) 43.8 % 47-70 [facility] Work Phone: Serum or plasma albumin yasmany urement (mass/volume)on 02-17-2022 Albumin [Mass/Vol] 3.5 g/dL 3.2-5.0 [facility] Work Phone: Serum or plasma albumin/glob ulin mass ratioon 02-17-2022 Albumin/Globulin [Mass ratio] 1.1 {ratio} 0.9-2.4 [facility] Work Phone: Serum or plasma calcium yasmany urement (mass/volume)on 02-17-2022 Calcium [Mass/Vol] 8.7 mg/dL 8.5-10.1 [facility] Work Phone: Serum or plasma cholesterol in HDL measurement (mass/volume)on 02-17-2022 Cholesterol in HDL [Mass/Vol] 90 mg/dL >40 [facility] Work Phone: Comment on above: The drugs N-Acetylcy steine and Metamizole may falsely depress this assay. Reference Range HDL <40 mg/dL Low HDL Cholesterol HDL >or= 60 mg/dL High HDL Cholesterol Serum or plasma cholesterol in VLDL measurement (mass/volume)on 02-17-2022 Cholesterol in VLDL [Mass/Vol] 9 mg/dL 5-40 [facility] Work Phone: Serum or plasma creatinine m easurement (mass/volume)on 02-17-2022 Creatinine [Mass/Vol] 0.78 mg/dL 0.55-1.02 [facility] Work Phone: Comment on above: The validity of the calculated GFR & GFRAA in patients over 70 years has not been determined. Clinical correlation is essential. Serum or plasma low density lipoprotein (LDL) cholesterol measurement (mass/volume)on 02-17-2022 Cholesterol in LDL [Mass/Vol] 115 mg/dL 0-130 [facility] Work Phone: Serum or plasma urea nitroge n measurement (mass/volume)on 02-17-2022 Urea nitrogen [Mass/Vol] 13 mg/dL 7-18 [facility] Work Phone: Serum or plasma uric acid me asurement (mass/volume)on 02-17-2022 Urate [Mass/Vol] 1.9 mg/dL 2.6-6.0 [facility] Work Phone: Comment on above: The drugs N-Acetylcy steine and Metamizole may falsely depress this assay. Thin prep Papanicolaou smear with manual screeningon 02-17-2022 Thin prep Papanicolaou smear with manual screening 12 U/L 15-37 [facility] Work Phone: Thin prep Papanicolaou smear with manual screening 4 5-15 [facility] Work Phone: Thin prep Papanicolaou smear with manual screening 134 U/L 84-246 [facility] Work Phone: Urine blood detectionon 01-21 RBC Ql (U) Negative Negative [facility] Work Phone: Urine clarityon 02-17-2022 Clarity (U) Sl. Cloudy Clear [facility] Work Phone: Urine color determinationon 02-17-2022 Color (U) Yellow Yellow [facility] Work Phone: Urine glucose detectionon Glucose Ql (U) Normal mg/dl Normal [facility] Work Phone: Urine leukocyte esterase det ection by dipstickon 02-17-2022 Leukocyte esterase Test strip Ql (U) Negative Negative [facility] Work Phone: Urine pHon 02-17-2022 pH (U) 5.0 [pH] 5.0 - 8.0 [facility] Work Phone: Urine specific gravity measu rementon 02-17-2022 Specific gravity (U) [Rel density] 1.025 1.002-1.030 [facility] Work Phone: Urobilinogen Auto test strip Ql (U)on 02-17-2022 Urobilinogen Ql (U) Normal mg/dl Normal [facility] Work Phone: NOVEL CORONAVIRUS NASOPHARYN GEAL - [facility] SPECIMEN ONLYon 11-03-2020 SARS-COV-2 NOT DETECTED Normal NOT DETECTED [facility] Comment on above: Order Comment: Submi tter Name: [facility] Agent Suspected: SARS-COV-2 This test was performed using real time PCR and has been approved for the qualitative detection of SARS-CoV-2 nucleic acid. The test has been authorized by the FDA under an emergency use authorization for use by authorized laboratories. Result Comment: [facility] Negative results do not preclude SARS-CoV-2 infection and should not be used as the sole basis for treatment or other patient management decisions. Optimum specimen types and timing for peak viral levels during infections caused by SARS-CoV-2 has not been determined. The possibility of a false negative result should especially be considered if the patient's recent exposures or clinical presentation suggest that SARS-CoV-2 infection is probable, and diagnostic tests for other causes of illness (e.g., other respiratory illness) are negative. Collection of a new specimen and re-testing may be necessary if the patient is critically ill or clinically deteriorating. Performed By: #### L [id number] #### [facility] (DEFAULT) [address] [id number] NOVEL CORONAVIRUS NASOPHARYN GEAL - [facility] SPECIMEN ONLYon 10-20-2020 SARS-COV-2 NOT DETECTED Normal NOT DETECTED [facility] Comment on above: Order Comment: Submi tter Name: [facility] Agent Suspected: SARS-COV-2 This test was performed using real time PCR and has been approved for the qualitative detection of SARS-CoV-2 nucleic acid. The test has been authorized by the FDA under an emergency use authorization for use by authorized laboratories. Result Comment: Nega tive results do not preclude SARS-CoV-2 infection and should not be used as the sole basis for treatment or other patient management decisions. Optimum specimen types and timing for peak viral levels during infections caused by SARS-CoV-2 has not been determined. The possibility of a false negative result should especially be considered if the patient's recent exposures or clinical presentation suggest that SARS-CoV-2 infection is probable, and diagnostic tests for other causes of illness (e.g., other respiratory illness) are negative. Collection of a new specimen and re-testing may be necessary if the patient is critically ill or clinically deteriorating. Performed By: #### L [id number] #### [facility] (DEFAULT) [address] [id number] NOVEL CORONAVIRUS NASOPHARYN GEAL - [facility] SPECIMEN ONLYon 09-23-2020 SARS-COV-2 NOT DETECTED Normal NOT DETECTED [facility] Comment on above: Order Comment: [facility] Agent Suspected: SARS-COV-2 This test was performed using real time PCR and has been approved for the qualitative detection of SARS-CoV-2 nucleic acid. The test has been authorized by the FDA under an emergency use authorization for use by authorized laboratories. Result Comment: Nega tive results do not preclude SARS-CoV-2 infection and should not be used as the sole basis for treatment or other patient management decisions. Optimum specimen types and timing for peak viral levels during infections caused by SARS-CoV-2 has not been determined. The possibility of a false negative result should especially be considered if the patient's recent exposures or clinical presentation suggest that SARS-CoV-2 infection is probable, and diagnostic tests for other causes of illness (e.g., other respiratory illness) are negative. Collection of a new specimen and re-testing may be necessary if the patient is critically ill or clinically deteriorating. Performed By: #### L [id number] #### [facility] (DEFAULT) [address] [address] NOVEL CORONAVIRUS NASOPHARYN GEAL - [facility] SPECIMEN ONLYon 09-22-2020 SARS-COV-2 NOT DETECTED Normal NOT DETECTED [facility] Comment on above: Order Comment: Submi tter Name: [facility] Agent Suspected: SARS-COV-2 This test was performed using real time PCR and has been approved for the qualitative detection of SARS-CoV-2 nucleic acid. The test has been authorized by the FDA under an emergency use authorization for use by authorized laboratories. Result Comment: Nega tive results do not preclude SARS-CoV-2 infection and should not be used as the sole basis for treatment or other patient management decisions. Optimum specimen types and timing for peak viral levels during infections caused by SARS-CoV-2 has not been determined. The possibility of a false negative result should especially be considered if the patient's recent exposures or clinical presentation suggest that SARS-CoV-2 infection is probable, and diagnostic tests for other causes of illness (e.g., other respiratory illness) are negative. Collection of a new specimen and re-testing may be necessary if the patient is critically ill or clinically deteriorating. Performed By: #### L [id number] #### [facility] (DEFAULT) [address] [address] NOVEL CORONAVIRUS NASOPHARYN GEAL - [facility] SPECIMEN ONLYon 09-08-2020 SARS-COV-2 NOT DETECTED Normal NOT DETECTED [facility] Comment on above: Order Comment: [facility] Agent Suspected: SARS-COV-2 This test was performed using real time PCR and has been approved for the qualitative detection of SARS-CoV-2 nucleic acid. The test has been authorized by the FDA under an emergency use authorization for use by authorized laboratories. Result Comment: Nega tive results do not preclude SARS-CoV-2 infection and should not be used as the sole basis for treatment or other patient management decisions. Optimum specimen types and timing for peak viral levels during infections caused by SARS-CoV-2 has not been determined. The possibility of a false negative result should especially be considered if the patient's recent exposures or clinical presentation suggest that SARS-CoV-2 infection is probable, and diagnostic tests for other causes of illness (e.g., other respiratory illness) are negative. Collection of a new specimen and re-testing may be necessary if the patient is critically ill or clinically deteriorating. Performed By: #### L [id number] #### [facility] (DEFAULT) [address] [place] [address] NOVEL CORONAVIRUS NASOPHARYN GEAL - [facility] SPECIMEN ONLYon 08-25-2020 SARS-COV-2 NOT DETECTED Normal NOT DETECTED [facility] Comment on above: Order Comment: Submi tter Name: [facility] Agent Suspected: SARS-COV-2 This test was performed using real time PCR and has been approved for the qualitative detection of SARS-CoV-2 nucleic acid. The test has been authorized by the FDA under an emergency use authorization for use by authorized laboratories. Result Comment: Nega tive results do not preclude SARS-CoV-2 infection and should not be used as the sole basis for treatment or other patient management decisions. Optimum specimen types and timing for peak viral levels during infections caused by SARS-CoV-2 has not been determined. The possibility of a false negative result should especially be considered if the patient's recent exposures or clinical presentation suggest that SARS-CoV-2 infection is probable, and diagnostic tests for other causes of illness (e.g., other respiratory illness) are negative. Collection of a new specimen and re-testing may be necessary if the patient is critically ill or clinically deteriorating. Performed By: #### L [id number] #### [facility] (DEFAULT) [address] [place] [address] NOVEL CORONAVIRUS NASOPHARYN GEAL - [facility] SPECIMEN ONLYon 08-11-2020 SARS-COV-2 NOT DETECTED Normal NOT DETECTED [facility] Comment on above: Order Comment: Submi tter Name: [facility] Agent Suspected: SARS-COV-2 This test was performed using real time PCR for the qualitative detection of SARS-CoV-2 nucleic acid. This test was developed and its performance characteristics determined by [facility]. It has not been cleared or approved by the FDA. The laboratory is regulated under CLIA as qualified to perform high-complexity testing. This test is used for clinical purposes. It should not be regarded as investigational or for research. Result Comment: Nega tive results do not preclude SARS-CoV-2 infection and should not be used as the sole basis for treatment or other patient management decisions. Optimum specimen types and timing for peak viral levels during infections caused by SARS-CoV-2 has not been determined. The possibility of a false negative result should especially be considered if the patient's recent exposures or clinical presentation suggest that SARS-CoV-2 infection is probable, and diagnostic tests for other causes of illness (e.g., other respiratory illness) are negative. Collection of a new specimen and re-testing may be necessary if the patient is critically ill or clinically deteriorating. Performed By: #### L [id number] #### [facility] (DEFAULT) [address] [place] [address] NOVEL CORONAVIRUS NASOPHARYN AL - [facility] SPECIMEN ONLYon 08-04-2020 SARS-COV-2 NOT DETECTED Normal NOT DETECTED [facility] Comment on above: Order Comment: Submi tter Name: [facility] Agent Suspected: SARS-COV-2 This test was performed using real time PCR and has been approved for the qualitative detection of SARS-CoV-2 nucleic acid. The test has been authorized by the FDA under an emergency use authorization for use by authorized laboratories. Result Comment: Nega tive results do not preclude SARS-CoV-2 infection and should not be used as the sole basis for treatment or other patient management decisions. Optimum specimen types and timing for peak viral levels during infections caused by SARS-CoV-2 has not been determined. The possibility of a false negative result should especially be considered if the patient's recent exposures or clinical presentation suggest that SARS-CoV-2 infection is probable, and diagnostic tests for other causes of illness (e.g., other respiratory illness) are negative. Collection of a new specimen and re-testing may be necessary if the patient is critically ill or clinically deteriorating. Performed By: #### L [id number] #### [facility] (DEFAULT) [address] [address] NOVEL CORONAVIRUS NASOPHARYN GEAL - [facility] SPECIMEN ONLYon 07-22-2020 SARS-COV-2 NOT DETECTED Normal NOT DETECTED [facility] Comment on above: Order Comment: Submi tter Name: [facility] Agent Suspected: SARS-COV-2 This test was performed using real time PCR and has been approved for the qualitative detection of SARS-CoV-2 nucleic acid. The test has been authorized by the FDA under an emergency use authorization for use by authorized laboratories. Result Comment: Nega tive results do not preclude SARS-CoV-2 infection and should not be used as the sole basis for treatment or other patient management decisions. Optimum specimen types and timing for peak viral levels during infections caused by SARS-CoV-2 has not been determined. The possibility of a false negative result should especially be considered if the patient's recent exposures or clinical presentation suggest that SARS-CoV-2 infection is probable, and diagnostic tests for other causes of illness (e.g., other respiratory illness) are negative. Collection of a new specimen and re-testing may be necessary if the patient is critically ill or clinically deteriorating. Performed By: #### L [id number] #### [facility] (DEFAULT) [address] [place] [address] NOVEL CORONAVIRUS NASOPHARYN GEAL - [facility] SPECIMEN ONLYon 07-07-2020 SARS-COV-2 NOT DETECTED Normal NOT DETECTED [facility] Comment on above: Order Comment: Submi tter Name: [facility] Agent Suspected: SARS-COV-2 This test was performed using real time PCR and has been approved for the qualitative detection of SARS-CoV-2 nucleic acid. The test has been authorized by the FDA under an emergency use authorization for use by authorized laboratories. Result Comment: Nega tive results do not preclude SARS-CoV-2 infection and should not be used as the sole basis for treatment or other patient management decisions. Optimum specimen types and timing for peak viral levels during infections caused by SARS-CoV-2 has not been determined. The possibility of a false negative result should especially be considered if the patient's recent exposures or clinical presentation suggest that SARS-CoV-2 infection is probable, and diagnostic tests for other causes of illness (e.g., other respiratory illness) are negative. Collection of a new specimen and re-testing may be necessary if the patient is critically ill or clinically deteriorating. Performed By: #### L [id number] #### [facility] (DEFAULT) [address] [address] NOVEL CORONAVIRUS NASOPHARYN GEAL - [facility] SPECIMEN ONLYon 06-23-2020 SARS-COV-2 NOT DETECTED Normal NOT DETECTED [facility] Comment on above: Order Comment: Submi tter Name: [facility] Agent Suspected: SARS-COV-2 This test was performed using real time PCR and has been approved for the qualitative detection of SARS-CoV-2 nucleic acid. The test has been authorized by the FDA under an emergency use authorization for use by authorized laboratories. Result Comment: Nega tive results do not preclude SARS-CoV-2 infection and should not be used as the sole basis for treatment or other patient management decisions. Optimum specimen types and timing for peak viral levels during infections caused by SARS-CoV-2 has not been determined. The possibility of a false negative result should especially be considered if the patient's recent exposures or clinical presentation suggest that SARS-CoV-2 infection is probable, and diagnostic tests for other causes of illness (e.g., other respiratory illness) are negative. Collection of a new specimen and re-testing may be necessary if the patient is critically ill or clinically deteriorating. Performed By: #### L [id number] #### [facility] (DEFAULT) [address] [address] Vital Signs Date Time Vital Sign Value Performing Clinician Facility 02-14-2023 15:16-0400 Body height 172.72 cm Anitra Cross Work Phone: [facility] Work Phone: 02-14-2023 15:16-0400 Body mass index (BMI) [Ratio] 22.08 kg/m2 Anitra Tay DO Work Phone: [facility]; [facility] Work Phone: 02-14-2023 15:16-0400 Body surface area Derived from formula 1.78 m2 Anitra Tay DO Work Phone: [facility] Work Phone: 02-14-2023 15:16-0400 Body temperature 98.2 [degF] Anitra Tay DO Work Phone: [facility] Work Phone: 02-14-2023 15:16-0400 Body weight 65.89 kg Anitra Tay DO Work Phone: [facility] Work Phone: 02-14-2023 15:16-0400 Diastolic blood pressure 72 mm[Hg] Anitra Tay DO Work Phone: [facility]; [facility] Work Phone: Comment on above: Patient Position: Sitting; Cuff Location : Left Arm; Cuff Size: Standard 02-14-2023 15:16-0400 Heart rate 72 /min Anitra Cross DO Work Phone: [facility]; [facility] Work Phone: Comment on above: Pattern: Regular 02-14-2023 15:16-0400 Respiratory rate 18 /min Anitra Cross DO Work Phone: [facility]; [facility] Work Phone: Comment on above: Pattern: Unlabored 02-14-2023 15:16-0400 SaO2% (BldA) [Mass fraction] 99 % Anitra Leslieon DO Work Phone: [facility] Work Phone: Comment on above: Room air 02-14-2023 15:16-0400 Systolic blood pressure 134 mm[Hg] Anitra Tay DO Work Phone: [facility]; [facility] Work Phone: Comment on above: Patient Position: Sitting; Cuff Location : Left Arm; Cuff Size: Standard 09-07-2021 13:21-0500 Body height 172.[address] Toney Anaya Work Phone: [facility] Work Phone: 08-10-2021 12:32-0500 Body mass index (BMI) [Ratio] 21.7 kg/m2 Dr. Toney Anaya Work Phone: [facility] Work Phone: 08-10-2021 12:32-0500 Body temperature 97.8 [degF] Dr. Toney Anaya Work Phone: [facility] Work Phone: 08-10-2021 12:32-0500 Body weight 64.[address] Toney Anaya Work Phone: [facility] Work Phone: 08-10-2021 12:32-0500 Diastolic blood pressure 96 mm[Hg] Dr. Toney Anaya Work Phone: [facility] Work Phone: 08-10-2021 12:32-0500 Heart rate 97 /min Dr. Toney Anaya Work Phone: [facility] Work Phone: 08-10-2021 12:32-0500 Respiratory rate 16 /min Dr. Toney Anaya Work Phone: [facility] Work Phone: 08-10-2021 12:32-0500 SaO2% (BldA) [Mass fraction] 99 % Dr. Toney Anaya Work Phone: [facility] Work Phone: 08-10-2021 12:32-0500 Systolic blood pressure 138 mm[Hg] Dr. Toney Anaya Work Phone: [facility] Work Phone: Encounters Encounter Date Encounter Type Care Provider Facility Start: 06-11-2025 ambulatory Anitra Cross Facilit y:[facility] Start: 05-04-2023 End: 05-04-2023 ambulatory [facility] Work Phone: Start: 05-04-2023 End: 05-04-2023 Patient encounter procedure [facility], [facility] Work Phone: Start: 02-17-2023 End: 02-17-2023 Annotation/Addendum Anitra Cross DO Work Phone: [facility] Start: 02-16-2023 End: 02-16-2023 ambulatory [facility] Work Phone: Start: 02-16-2023 End: 02-16-2023 Patient encounter procedure [facility] Work Phone: Start: 02-14-2023 End: 02-14-2023 Initial preventive medicine new patient 40-64yrs Anitra Cross DO Work Phone: [facility] Start: 02-14-2023 End: 02-14-2023 Patient encounter status Anitra Cross DO Work Phone: [facility] Start: 02-14-2023 Review Anitra Smith n DO Work Phone: [facility] Start: 02-01-2023 End: 02-01-2023 ambulatory [facility] Work Phone: Start: 02-01-2023 End: 02-01-2023 Patient encounter procedure [facility] Start: 02-17-2022 [facility] Start: 02-16-2022 End: 02-18-2022 Discharged Recurring [facility] Start: 11-02-2021 End: 11-19-[address] [facility] Start: 09-14-2021 End: 09-14-[address] Toney Anaya Work Phone: [facility] Start: 09-11-2021 End: 09-11-[address] Toney Anaya Work Phone: [facility] Start: 09-07-2021 End: 09-07-[address] Toney Anaya Work Phone: [facility]Labor[facility], Specimen Start: 09-07-2021 End: 09-07-[address] Toney Anaya Work Phone: [facility] Start: 08-20-[address] Toney Anaya Work Phone: [facility] Start: 08-10-2021 End: 08-10-[address] Toney Anaya Work Phone: [facility] Start: 07-30-[address] Toney Anaya Work Phone: [facility]Outpatient [facility] Start: 03-25-2018 Patient encounter [facility] Patient encounter status Anitra Cross DO Work Phone: [facility] Work Phone: Procedures Date Procedure Procedure Detail Performing Clinician Start: 05-04-2023 Plain x-ray of elbow Start: 11-02-2021 End: 11-02-[address] Toney Anaya Work Phone: Start: 08-20-2021 Computed tomography of abdomen and pelvis with contrast Dr. Toney Anaya Work Phone: Start: 07-30-2021 Bilateral mammography Cuauhtemoc Anaya Work Phone: Start: 07-30-[address] Toney Anaya Work Phone: Viral antigen assay Plan of Treatment Date Care Activity Detail Author Start: 02-17-2023 1 25 dihydroxy inclu katy fractions if performed VITAMIN D, 1, 25-DIHYDROXY (83830) [facility] Work Phone: Comment on above: due in 3m Start: 02-17-2023 Calcium total CALCIUM SERUM (59187) [facility]; [facility] Work Phone: Comment on above: due in 3m Start: 02-17-2023 Cyanocobalamin vitam in b-12 VITAMIN B-12 (CYANOCOBALAMIN) (74063) [facility]; [facility] Work Phone: Comment on above: due in 3 m Start: 02-14-2023 25 hydroxy includes fractions if performed CALCIFIDIOL (04854) VIT D 25 [facility]; [facility] Work Phone: Start: 02-14-2023 Cyanocobalamin vitam in b-12 VITAMIN B-12 (CYANOCOBALAMIN) (82951) [facility]; [facility] Work Phone: Start: 02-14-2023 Assay of thyroid stimulating hormone tsh TSH (98048) [facility]; [facility] Work Phone: Start: 02-14-2023 Sedimentation rate r bc non-automated SED RATE ERYTHROCYTE (56753) [facility]; [facility] Work Phone: Start: 02-14-2023 Comprehensive metabo lic panel METABOLIC PANEL, COMPREHENSIVE (51979) [facility]; [facility] Work Phone: Start: 02-14-2023 C-reactive protein C-REACTIVE PROTEIN (74421) [facility]; [facility] Work Phone: Start: 02-14-2023 Blood count complete automated CBC (AUTO) (66071) [facility]; [facility] Work Phone: Start: 02-14-2023 Antinuclear antibodi es mateo MATEO (ANTINUCLEAR ANTIBODY) (17232) [facility]; [facility] Work Phone: Start: 02-14-2023 Procedure Education Eprescribe d prescriptions (G8553) [facility]; [facility] Work Phone: Start: 02-14-2023 Provider Instruction s for Treatment [facility]; [facility] Work Phone: Immunizations Immunization Date Immunization Notes Care Provider Howie turcios 07-07-2022 influenza, injectabl e, quadrivalent, preservative free [facility] 07-07-2022 influenza, seasonal, injectable [facility] 07-07-2021 influenza, injectabl e, quadrivalent, preservative free [facility] 07-07-2021 influenza, seasonal, injectable Dr. Toney Anaya Work Phone: [facility] 09-30-2020 Covid (Moderna) Dr. Toney forrester Work Phone: [facility] 09-02-2020 Covid (Moderna) Dr. Toney forrester Work Phone: [facility] 07-14-2020 influenza, injectabl e, quadrivalent, preservative free [facility] 07-14-2020 influenza, seasonal, injectable Dr. Toney Anaya Work Phone: [facility] 06-12-2019 influenza, injectabl e, quadrivalent, preservative free [facility] 06-12-2019 influenza, seasonal, injectable Dr. Toney Anaya Work Phone: [facility] 06-22-2018 influenza, injectabl e, quadrivalent, preservative free [facility] 06-22-2018 influenza, seasonal, injectable Dr. Toney Anaya Work Phone: [facility] 05-27-2017 influenza, injectabl e, quadrivalent, preservative free [facility] 05-27-2017 influenza, seasonal, injectable Dr. Toney Anaya Work Phone: [facility] 06-30-2016 influenza, injectabl e, quadrivalent, preservative free [facility] 06-30-2016 influenza, seasonal, injectable Dr. Toney Anaya Work Phone: [facility] 06-17-2015 influenza, injectabl e, quadrivalent, preservative free [facility] 06-17-2015 influenza, seasonal, injectable Dr. Toney Anaya Work Phone: [facility] 05-15-2014 influenza, injectabl e, quadrivalent, preservative free [facility] 05-15-2014 influenza, seasonal, injectable Dr. Toney Anaya Work Phone: [facility] 08-29-[address] Toney Anaya Work Phone: [facility] Payers Date Payer Category Payer Self-pay [id number] Unknown [id number] 2014 Unknown [id number] Private Health Insurance [id number] Unknown [employer] Unknown [id number] Social History Date Type Detail Facility Start: 09-11-2021 Tobacco smoking status NHIS Unknown if ever smoked [facility] Start: 05-30-2018 None [facility] Start: 05-30-2018 Spouse/ Signif icant Other [facility] Start: 06-06-2018 Non-smoker [facility] Start: 1975 Sex Assigned At Female W [facility] Medical Equipment Procedure Code Equipment Code Equipment Origin al Text Equipment Identifier Dates Abdominal hysterectomy NAEEM 3GRM HEMOSTAT ABS FDA Start: 05-31-2018 Abdominal hysterectomy NAEEM 3GRM HEMOSTAT ABS FDA Start: 05-31-2018 Abdominal hysterectomy NAEEM 3GRM HEMOSTAT ABS FDA Start: 05-31-2018 Abdominal hysterectomy NAEEM 3GRM HEMOSTAT ABS FDA Start: 05-31-2018 Abdominal hysterectomy NAEEM 3GRM HEMOSTAT ABS FDA Start: 05-31-2018 Abdominal hysterectomy NAEEM 3GRM HEMOSTAT ABS FDA Start: 05-31-2018 Evaluation note Note Date & Type Note Facility Evaluation note Diagnosis Onset Date Fibrocystic breast acute Lipoma acute Spigelian hernia acute Lipoma acute Lipoma acute [facility] Work Phone: Evaluation note Note Date & Type Note Facility Evaluation note Diagnosis Onset Date Lipoma acute Lipoma acute [facility] Work Phone: Evaluation note Note Date & Type Note Facility Evaluation note No assessment information availa ble [facility] Work Phone: Instructions Note Date & Type Note Facility Instructions Name Patient Instructions Indication:Fatigue Start: 3 Instruction Type:Provider Instructions for Treatment How to Access Health Information Online using Patient Portal and [employer] Apps Indication:Fatigue Start: 3 Instruction Type:Patient Education [facility] Work Phone: Instructions Note Date & Type Note Facility Instructions Name Patient Instructions Indication:Fatigue Start: 3 Instruction Type:Provider Instructions for Treatment How to Access Health Information Online using Patient Portal and [employer] Apps Indication:Fatigue Start: 3 Instruction Type:Patient Education [facility]; [facility] Work Phone: Instructions Note Date & Type Note Facility Instructions Name Patient Instructions Indication:Fatigue Start: 3 Instruction Type:Provider Instructions for Treatment How to Access Health Information Online using Patient Portal and [employer] Apps Indication:Fatigue Start: 3 Instruction Type:Patient Education [facility]; [facility] Work Phone: Summary Purpose Family History No Family History Records Found Relationship Condition Age at Onset Recorded Date/T bridget Not Specified No pertinent family history Unknown father Hypertension Unknown High blood cholesterol Unknown sister High blood cholesterol Unknown Disorder of thyroid Unknown mother Malignant neoplasm Unknown Advance Directives No Advanced Directives Records Found Advance Directive Response Recorded Date/ Time Advance Directives No September 07, 2021 3:21pm Living Will No September 07 3:21pm Power of Transportation Clerk No September 07, 2021 3:21pm Chief Complaint and Reason for Visit Chief Complaint LUMP LEFT Hernia Right lower quadrant pain excision right thigh mass R. THIGH LIPOMA ALT SUTURE REMOVAL remaining suture removal [id number] REQUIRED TESTING Reason for Visit Fibrocystic breast Lipoma Spigelian hernia Lipoma Lipoma Chief Complaint Right lower quadrant pain excision right thigh mass R. THIGH LIPOMA ALT SUTURE REMOVAL remaining suture removal [id number] REQUIRED TESTING Reason for Visit Lipoma Lipoma Chief Complaint [id number] REQ UIRED TESTING [id number] 19 REQUIRED TESTING HRA Chief Complaint Other fatigue Chief Complaint Other fatigue LEFT ELBOW PAIN Additional Source Comments INFORMATION SOURCE (unrecogn ized section and content) DATE CREATED AUTHOR 04/04/2018 [facility] DATE CREATED AUTHOR AUTHOR'S ORGANIZ ATION 11/04/2020 [facility] DATE CREATED AUTHOR AUTHOR'S ORGANIZ ATION 06/03/2025 [facility] Goals (unrecognized section and content) Goals may be documented in a n alternate sectionGoals may be documented in an alternate sectionGoals may be documented in an alternate sectionGoals may be documented in an alternate sectionGoals may be documented in an alternate sectionGoals may be documented in an alternate section Care Teams (unrecognized sec tion and content) Team Status: Active Member Role Status Dates Dr. Latisha Rhodes MD Family Provider Active Dr. Latisha Rhodes MD Primary Care Provider Active Team Status: Inactive Member Role Status Dates Dr. Latisha Rhodes MD Primary Care Provider Active Dr. Kanchan Kumari DO Attending Provider, Referrin g Provider Active Team Status: Active Member Role Status Dates Dr. Latisha Rhodes MD Family Provider Active Dr. Anitra Cross DO Primary Care Provider Active Team Status: Inactive Member Role Status Dates Dr. Anitra Cross DO Primary Care Pr ovider, Attending Provider, Referring Provider Active Team Status: Inactive Member Role Status Dates Dr. Anitra Cross DO Primary Care Provider Active Ki MEEK PA-C Attending Provider, Referring Pr ovider Active FOR RECORDS PERTAINING TO PATIENTS WHO ARE OR HAVE BEEN ENROLLED IN A CHEMICAL DEPENDENCY/SUBSTANCEABUSE PROGRAM, SOME INFORMATION MAY BE OMITTED. This clinical summary was aggregated from multiple sources. Caution should be exercised in using it in the provision of clinical care. This summary normalizes information from multiple sources, and as a consequence, information in this document may materially change the coding, format and clinical context of patient data. In addition, data may be omitted in some cases. CLINICAL DECISIONS SHOULD BE BASED ON THE PRIMARY CLINICAL RECORDS. [facility] [employer] provides no warranty or guarantee of the accuracy or completeness of information in this document.
== END | disposition home or self-care (01) ==
LOC: OPBI 15:58
PROVIDERS: PCP Internal Medicine; Referring Provider Internal Medicine; Visit Provider Internal Medicine
DX: Z12.31 Encounter for screening mammogram for malignant neoplasm of breast (principal)
CPT/HCPCS: 77063; 77067

== ENCOUNTER → 2025-06-21 | Outpatient (CLI) | payer OTHER, SELFPAY ==
[2025-06-21 08:56] LABS: Hematocrit 36.0 % (37-47); Hemoglobin 12.0 g/dL (12.0-15.0); Immature Granulocytes Count 0.010 X10^3/uL (0.0-0.0); Mean Corp Hgb Conc 33.3 g/dL (32-36); Mean Corpuscular Volume 91.4 fL (81-99); Mean Platelet Vol. 9.2 fl (6.2-12.0); NRBC Flagged by Analyzer 0 % (0-5); Platelet Count 325 K/mm3 (150-450); RBC Distribution Width CV 12.5 % (11.6-14.6); RBC Distribution Width SD 41.5 fl (35.1-43.9); Red Blood Count 3.94 M/mm3 (4.2-5.4); White Blood Count 5.9 K/mm3 (4.4-11.0)
[2025-06-21 09:52] LABS: AST(SGOT) 17 U/L (<=31); Alanine Aminotransfer ALT/SGPT 12 U/L (<=34); Albumin, Serum 4.1 g/dL (3.5-5.0); Alkaline Phosphatase 26 U/L (35-104); Anion Gap 8 (5-15); BUN 11 mg/dL (4-19); BUN/Creat Ratio 13.7 RATIO (10-20); Calcium,Total 9.0 mg/dL (7.6-11.0); Carbon Dioxide 24.4 mmol/L (21.0-32.0); Chloride 106 mmol/L (98-108); Cholesterol 224 mg/dL (<=200); Globulin 2.4 g/dL (2.2-4.2); Glucose 98 mg/dL (70-99); Low Density Lipoprotein Calc. 133 mg/dL; Potassium 4.2 mmol/L (3.3-5.1); Triglycerides 41 mg/dL; Very Low Density Lipoprotein 8 mg/dL (5-40); Vitamin B12 509 pg/mL (180-914); Vitamin D,25 Hydroxy 32.2 ng/mL (30-100); cholesterol:hdl ratio screen 2.66
== END | disposition home or self-care (01) ==
LOC: LAB 08:14
PROVIDERS: PCP Internal Medicine; Referring Provider Internal Medicine; Visit Provider Internal Medicine
DX: Z13.220 Encounter for screening for lipoid disorders (principal); E53.8 Deficiency of other specified B group vitamins; E55.9 Vitamin D deficiency, unspecified
CPT/HCPCS: 36415; 80053; 80061; 82306; 82607; 85025

== ENCOUNTER 2025-07-31 14:40 | Outpatient (CLI) | payer SELFPAY ==
--- NOTE | 2025-07-31 14:43 | CT_ITS ---
PROCEDURE: LIMITED CHEST CT CARDIAC ONLY 07/31/2025 REASON FOR EXAM: FAM HX of coronary artery disease TECHNIQUE: Procedure Code: [id number] Modality: CT Procedure: LIMITED CHEST CT CARDIAC ONLY One or more dose reduction techniques were used (e.g., Automated exposure control, adjustment of the mA and/or kV according to patient size, use of iterative reconstruction technique). RADIATION DOSE SUMMARY: CTDlvol: 12.19 mGy DLP: 243.79 mGycm COMPARISON: None. CT/Limited Chest CT Cardiac Only IMPRESSION: A distended inferior vena cava is seen. Limited imaging of the liver demonstrates presence of a few cysts. Limited imaging of the lungs demonstrates no acute process. No pleural effusion or pneumothorax is seen in visualized areas. No adenopathy is noted. The visualized upper abdomen demonstrates no other significant abnormality. Reading Location: [address]
--- NOTE | 2025-08-01 12:38 | CA.SCORE ---
Calcium Scoring Date of Study:: 07/31/25 Coronary Calcium Scoring: High-resolution Computed Tomographic imaging of the chest was performed on [07/31/2025], with particular attention paid to the coronary arteries. Images from the examination were analyzed for the presence and extent of coronary artery calcification , using coronary calcium quantification software. The patient tolerated the procedure well and there were no complications. The results of the coronary calcification analysis are provided below. Findings Coronary Artery Left Main (LM): 0 Left Anterior Descending (LAD): 0 Left Circumflex (LCX): 0 Right Coronary Artery (RCA): 0 Total Agatston Score: 0 Percentile Rankin Calcium Scoring Interpretation: Different methods to categorize the overall amount of coronary plaque. Overall amount CAC SIS Visual of coronary plaque P1 Mild -100 <2 1-2 vessels with mild amount of plaque P2 Moderate 101-300 3-4 1-2 vessels with moderate amount, 3 vessels with mild amount of plaque P3 Severe 301-999 5-7 3 vessels with moderate amount, 1 vessel with severe amount of plaque P4 Extensive >1000 >8 2-3 vessels with severe amount of plaque Conclusion: No atherosclerotic plaquing noted
== END 2025-07-31 23:59 | disposition home or self-care (01) ==
PROVIDERS: PCP Internal Medicine; Referring Provider Internal Medicine; Visit Provider Internal Medicine
DX: I82.4Z9 Acute embolism and thrombosis of unspecified deep veins of unspecified distal lower extremity (principal); Z82.49 Family history of ischemic heart disease and other diseases of the circulatory system
CPT/HCPCS: 75571; 76380